=== PATIENT | male | born 1965 | race Caucasian/White ===

== ENCOUNTER 2017-09-24 23:40 | Observation (INO) | payer OTHER ==
[2017-09-25 01:08] VITALS: BMI 28.5
--- NOTE | 2017-09-25 01:17 | PDOC ---
Attending Attestation - HPI HPI: 09/25/17 01:20 The patient is a 51 year old male with a significant PMH of diabetes and HTN who presents to the emergency department with a sudden onset of left sided abdominal pain with associated vomiting beginning approximately 3 hours ago. He describes his vomit as what he ate and denies hematemesis or bile. He describes his abdominal pain as a pressure like sensation localized on his left side. He notes his last BM was today. The patient denies dysuria or hematuria. Allergies: NKA PCP: Dr. Varghese-Lilia <Ganesh Jean-Baptiste - Last Filed: 09/25/17 01:20> - Resident Resident Name: Nicanor Bazan - ED Attending Attestation I have performed the following: I have examined & evaluated the patient, The case was reviewed & discussed with the resident, I agree w/resident's findings & plan, Exceptions are as noted - Physicial Exam PE: 09/29/17 19:58 *Physical Exam General Appearance: Yes: Appropriately Dressed. No: Apparent Distress, Intoxicated HEENT: positive: EOMI, ROQUE, Normal ENT Inspection, Normal Voice, TMs Normal, Pharynx Normal. negative: Pale Conjunctivae, Photophobia, Scleral Icterus (R), Scleral Icterus (L) Neck: positive: Trachea midline, Normal Thyroid, Supple. negative: Tender, Rigid, Carotid bruit, Stridor, Lymphadenopathy (R), Lymphadenopathy (L), Thyromegaly Respiratory/Chest: positive: Lungs Clear, Normal Breath Sounds. negative: Chest Tender, Respiratory Distress, Accessory Muscle Use, Labored Respiration, RES, Crackles, Rales, Rhonchi, Stridor, Wheezing, Dullness Cardiovascular: positive: Regular Rhythm, Regular Rate, S1, S2. negative: Edema , JVD, Murmur, Bradycardia, Tachycardia Vascular Pulses: Dorsalis-Pedis (R): 2+, Doralis-Pedis (L): 2+ Gastrointestinal/Abdominal: positive: Normal Bowel Sounds, Flat, Soft. negative : Tender, Organomegaly, Pulsatile Mass, Increased Bowel Sounds, Decreased BS, Distended, Guarding, Rebound, Hernia, Hepatomegaly, Spleenomegaly Lymphatic: negative: Adenopathy, Tenderness Musculoskeletal: positive: Left CVA tenderness negative: Decreased Range of Motion Extremity: positive: Normal Capillary Refill, Normal Inspection, Normal Range of Motion, Pelvis Stable. negative: Tender, Pedal Edema, Swelling, Erythema Integumentary: positive: Normal Color, Dry, Warm. negative: Cyanotic, Erythema , Jaundice, Rash Neurologic: positive: deli clerk II-XII NML intact, Fully Oriented, Alert, Normal Mood/ Affect, Motor Strength 5/5. negative: EOM Palsy, Facial Droop, Sensory Deficit - Medical Decision Making 09/29/17 19:59 Pt was admitted for further evaluation and care <Sánchez Calvillo - Last Filed: 09/29/17 19:59>
[2017-09-25] MEDS ORDERED: morphine CARPU-JECT 4 MG/1 ML DISP.SYRIN IVPUSH ONE ×2 (01:18→02:51)
[2017-09-25] MEDS ORDERED: ONDANSETRON 4 MG/2 ML VIAL IVPUSH ONE (01:18)
[2017-09-25] MEDS ORDERED: FAMOTIDINE 20 MG/50 ML IVPB 20 MG/50 ML MG IVPB ONE ×2 (01:18→01:44)
[2017-09-25] MEDS ORDERED: SODIUM CHLORIDE 1,000 ML IV STA (01:18)
[2017-09-25] MEDS ORDERED: morphine SULFATE 4 MG/ML VIAL ONE ×2 (01:44→02:53)
[2017-09-25] MEDS ORDERED: ONDANSETRON 4 MG/2 ML VIAL ONE ×2 (01:44→14:36)
[2017-09-25 01:48] LABS: BASO % 0.3 % (0-2.0); EOS % 0.2 % (0-4.5); HEMATOCRIT 38.6 % (35.4-49); LYMPH % 15.6 % (8-40); MCH 25.9 pg (25.7-33.7); MCHC 33.7 g/dl (32.0-35.9); MEAN CELL VOLUME 76.7 fl (80-96); MEAN PLT VOLUME 9.7 fl (7.5-11.1); NEUT % 77.9 % (42.8-82.8); PLATELET COUNT 173 K/MM3 (134-434); RBC 5.03 M/mm3 (4.00-5.60); RDW 15.3 % (11.9-15.9); WHITE BLOOD COUNT 8.4 K/mm3 (4.0-10.0)
[2017-09-25 02:15] LABS: ALBUMIN 4.3 g/dl (3.4-5.0); ALK PHOS 61 U/L (45-117); ANION GAP 14 (8-16); BILIRUBIN,TOTAL 0.4 mg/dL (0.2-1.0); BLOOD UREA NITROGEN 17 mg/dL (7-18); CALCIUM 9.6 mg/dL (8.5-10.1); CHLORIDE 100 mmol/L (98-107); CO2 26 mmol/L (21-32); CREATININE 1.3 mg/dL (0.7-1.3); GLUCOSE,RANDOM 284 mg/dL (74-106); LIPASE 179 U/L (73-393); SGPT/ALT 32 U/L (12-78); SODIUM 140 mmol/L (136-145); TOT PROT 7.5 g/dl (6.4-8.2)
[2017-09-25 02:19] LABS: POTASSIUM 4.6 mmol/L (3.5-5.1)
[2017-09-25 02:20] LABS: SGOT/AST 32 U/L (15-37)
--- NOTE | 2017-09-25 02:50 | PDOC ---
History of Present Illness - General Chief Complaint: Pain Stated Complaint: PAIN, ACUTE Time Seen by Provider: 09/25/17 01:07 History Source: Patient Exam Limitations: No Limitations - History of Present Illness Initial Comments: 09/25/17 02:45 Patient is a 51M with history of IDDM and HTN here today complaining of left sided abdominal pain that onset at 10pm yesterday. Patient is complaining of associated nausea and non-billious non-bloody emesis. He describes the pain as a pressure. Denies fevers, chills. Last bowel movement was this morning. Denies pain with urination. Denies surgical history. Former distant smoker. Past History - Past Medical History Allergies/Adverse Reactions: Allergies Allergy/AdvReac Type Severity Reaction Status Date / Time No Known Allergies Allergy Verified 09/25/17 01:06 Home Medications: Ambulatory Orders Aspirin [ASA -] 81 mg PO DAILY 09/25/17 Atorvastatin Ca [Lipitor] 40 mg PO HS 09/25/17 Enalapril Maleate [Vasotec -] 5 mg PO DAILY 09/25/17 Insulin Glargine,Hum.rec.anlog [Lantus] 75 unit SQ HS 09/25/17 Liraglutide [Victoza -] 1.2 mg SQ DAILY@0700 09/25/17 metFORMIN HCL [Glucophage -] 500 mg PO DAILY 09/25/17 COPD: No Diabetes: Yes HTN: Yes Hypercholesterolemia: Yes - Suicide/Smoking/Psychosocial Hx Smoking History: Never smoked Have you smoked in the past 12 months: No Information on smoking cessation initiated: No Hx Alcohol Use: No Drug/Substance Use Hx: No Review of Systems - Review of Systems Comments:: 09/25/17 02:47 GENERAL/CONSTITUTIONAL: No fever or chills. No weakness. HEAD, EYES, EARS, NOSE AND THROAT: No change in vision. No sore throat. CARDIOVASCULAR: No chest pain or shortness of breath RESPIRATORY: No cough, wheezing, or hemoptysis. GASTROINTESTINAL: Positive for nausea, vomiting. Negative for diarrhea or constipation. GENITOURINARY: No dysuria, frequency, or change in urination. MUSCULOSKELETAL: No joint or muscle swelling or pain. No neck or back pain. SKIN: No rash NEUROLOGIC: No headache, vertigo, loss of consciousness, or change in strength/ sensation. ENDOCRINE: No increased thirst. No abnormal weight change ALLERGIC/IMMUNOLOGIC: No hives or skin allergy. *Physical Exam - Vital Signs Last Vital Signs Temp Pulse Resp BP Pulse Ox 98.9 F 89 20 158/101 98 09/25/17 01:04 09/25/17 01:04 09/25/17 01:04 09/25/17 01:04 09/25/17 01:04 - Physical Exam Comments: 09/25/17 02:48 GENERAL: Awake, alert, and fully oriented, in no acute distress HEAD: No signs of trauma, normocephalic, atraumatic EYES: PERRLA, EOMI, sclera anicteric, conjunctiva clear ENT: Auricles normal inspection, hearing grossly normal, nares patent, oropharynx clear without exudates. Moist mucosa LUNGS: No distress, speaks full sentences, clear to auscultation bilaterally HEART: Regular rate and rhythm, normal S1 and S2, no murmurs, rubs or gallops, peripheral pulses normal and equal bilaterally. ABDOMEN: Soft, tender in LLQ, no guarding, no rebound. EXTREMITIES: Normal inspection, Normal range of motion, no edema. No clubbing or cyanosis. NEUROLOGICAL: Cranial nerves II through XII grossly intact. Normal speech, no focal sensorimotor deficits SKIN: Warm, Dry, normal turgor, no rashes or lesions noted. ED Treatment Course - LABORATORY CBC & Chemistry Diagram: 09/25/17 01:40 09/25/17 01:40 - ADDITIONAL ORDERS Additional order review: Laboratory Results 09/25/17 01:40 Sodium 140 Potassium 4.6 Chloride 100 Carbon Dioxide 26 Anion Gap 14 BUN 17 Creatinine 1.3 Creat Clearance w eGFR 58.20 Random Glucose 284 H Calcium 9.6 Total Bilirubin 0.4 AST 32 ALT 32 Alkaline Phosphatase 61 Total Protein 7.5 Albumin 4.3 Lipase 179 09/25/17 01:40 RBC 5.03 MCV 76.7 L MCHC 33.7 RDW 15.3 MPV 9.7 Neutrophils % 77.9 Lymphocytes % 15.6 Monocytes % 6.0 Eosinophils % 0.2 Basophils % 0.3 - RADIOLOGY Radiology Studies Ordered: Category Date Time Status ABDOMEN & PELVIS CT WITH CONTR [CT] Stat CT Scan 09/25/17 01:20 Ordered - Medications Given in the ED: ED Medications Discontinued Medications Generic Name Dose Route Start Last Admin Trade Name Freq PRN Reason Stop Dose Admin Famotidine/Sodium Chloride 20 mg in 50 mls @ 100 mls/hr 09/25/17 01:18 01:52 Pepcid 20 Mg Premixed Ivpb - IVPB 09/25/17 01:47 100 mls/hr ONCE ONE Administration Sodium Chloride 1,000 mls @ 1,000 mls/hr 09/25/17 01:18 09/25/17 01:52 Normal Saline - IV 09/25/17 02:17 1,000 mls/hr ASDIR STA Administration Morphine Sulfate 4 mg 09/25/17 01:18 09/25/17 01:51 Morphine Injection - IVPUSH 09/25/17 01:19 4 mg ONCE ONE Administration Ondansetron HCl 4 mg 09/25/17 01:18 09/25/17 01:52 Zofran Injection IVPUSH 09/25/17 01:19 4 mg ONCE ONE Administration Medical Decision Making - Medical Decision Making 09/25/17 02:48 Patient is 51M with history of IDDM and HTN here today complaining of LLQ abdominal pain. Vital signs stable and normal. DDx includes, but is not limited to: diverticulitis, gastritis, nephrolithiasis. Treated with zofran, pepcid, morphine. Will evaluate with cbc, cmp, lipase, ua, ekg, ct abd/pelvis. 09/25/17 03:17 EKG shows normal sinus rhythm with rate of 80. No st elevations/depressions. Normal intervals. 09/25/17 03:51 CBC, CMP, Lipase reassuring. UA shows hematuria and glucosuria. No infection CT shows kidney stone with moderate hydronephrosis. Patient reassessed, still in pain. Given second dose of morphine, toradol and flomax added. Will reassess. 09/25/17 06:[address] Santamaria. Patient still in pain. *DC/Admit/Observation/Transfer Diagnosis at time of Disposition: Nephrolithiasis - Discharge Dispostion Condition at time of disposition: Stable Decision to Admit order: Yes - Referrals Referrals: Anastasiia Aguila MD [Primary Care Provider] - - Patient Instructions - Post Discharge Activity
[2017-09-25 03:09] LABS: URINE APPEARANCE CLEAR; URINE BILIRUBIN NEGATIVE (<2.0 mg/dL); URINE COLOR STRAW; URINE GLUCOSE (UA) 3+ (NEGATIVE); URINE KETONE TRACE (NEGATIVE); URINE LEUK ESTERASE NEGATIVE (NEGATIVE); URINE NITRITE NEGATIVE (NEGATIVE); URINE PROTEIN NEGATIVE (NEGATIVE); URINE UROBILINOGEN NEGATIVE mg/dL (0.2-1.0)
[2017-09-25] MEDS ORDERED: TAMSULOSIN HCL 0.4 MG CAP.ER.24H (FP) PO ONE (03:31)
[2017-09-25] MEDS ORDERED: KETOROLAC TROMETHAMINE 30 MG/1 ML VIAL IVPUSH ONE (03:31)
[2017-09-25 03:35] LABS: EPI CELLS RARE /HPF (FEW)
[2017-09-25] MEDS ORDERED: KETOROLAC TROMETHAMINE 30 MG/1 ML VIAL ONE (04:04)
[2017-09-25] MEDS ORDERED: TAMSULOSIN HCL 0.4 MG CAP.ER.24H (FP) ONE ×2 (04:04→07:52)
--- NOTE | 2017-09-25 05:03 | HP ---
CHIEF COMPLAINT: L flank pain, nausea, vomiting PCP: Dr. Callahan Urology: [facility] in [place] (can't recall MD name) HISTORY OF PRESENT ILLNESS: 51yo man with PMH of HTN, IDDM, and L renal stone 8y ago (passed spontaneously) who presents to ED with acute onset L flank pain and multiple episodes of NBNB emesis starting yesterday. Patient was at [employer] when developed sharp L flank pain. Attempt at PO intake elicited nausea and emesis. Patient denies fever, chills, dysuria, hematuria, urinary hesitancy, and urgency. ER course was notable for: (1) VS: T 98, HR 100, BP 125/75, RR 18, pSaO2 99% on RA (2) CT A/P: 4mm stone at L UVJ with moderate hydronephrosis (3) Received Morphine, Toradol and Zofran with improvement in pain Recent Travel: none PAST MEDICAL HISTORY: see HPI PAST SURGICAL HISTORY: none Social History: Smoking: quit 15y ago Alcohol: no Drugs: no Family History: no family h/o renal stones Allergies: No Known Allergies Allergy (Verified 09/25/17 01:06) HOME MEDICATIONS: Home Medications Medication Instructions Recorded Aspirin [ASA -] 81 mg PO DAILY 09/25/17 Atorvastatin Ca [Lipitor] 40 mg PO HS 09/25/17 Enalapril Maleate [Vasotec -] 5 mg PO DAILY 09/25/17 Insulin Glargine,Hum.rec.anlog 75 unit SQ HS 09/25/17 [Lantus] Liraglutide [Victoza -] 1.2 mg SQ DAILY@0700 09/25/17 metFORMIN HCL [Glucophage -] 500 mg PO DAILY 09/25/17 REVIEW OF SYSTEMS CONSTITUTIONAL: Absent: fever, chills, diaphoresis, generalized weakness, malaise, loss of appetite, weight change HEENT: Absent: rhinorrhea, nasal congestion, throat pain, throat swelling, difficulty swallowing, mouth swelling, ear pain, eye pain, visual changes CARDIOVASCULAR: Absent: chest pain, syncope, palpitations, irregular heart rate, lightheadedness , peripheral edema RESPIRATORY: Absent: cough, shortness of breath, dyspnea with exertion, orthopnea, wheezing, stridor, hemoptysis GASTROINTESTINAL: +nausea, vomiting Absent: abdominal pain, abdominal distension, diarrhea, constipation, melena, hematochezia GENITOURINARY: +flank pain, Absent: dysuria, frequency, urgency, hesitancy, hematuria, genital pain MUSCULOSKELETAL: Absent: myalgia, arthralgia, joint swelling, back pain, neck pain SKIN: Absent: rash, itching, pallor HEMATOLOGIC/IMMUNOLOGIC: Absent: easy bleeding, easy bruising, lymphadenopathy, frequent infections ENDOCRINE: Absent: unexplained weight gain, unexplained weight loss, heat intolerance, cold intolerance NEUROLOGIC: Absent: headache, focal weakness or paresthesias, dizziness, unsteady gait, seizure, mental status changes, bladder or bowel incontinence PSYCHIATRIC: Absent: anxiety, depression, suicidal or homicidal ideation, hallucinations. PHYSICAL EXAMINATION Vital Signs - 24 hr 09/25/17 01:04 Temperature 98.9 F Pulse Rate 89 Respiratory 20 Rate Blood Pressure 158/101 O2 Sat by Pulse 98 Oximetry (%) GENERAL: aaox3, nad HEENT: PERRL, EOMI, sclera anicteric, conjunctiva clear, no pharygeal erythema, mmm NECK: supple, no cervical LAD LUNGS: CTAB HEART: RRR, normal s1/s2, no m/r/g ABDOMEN: Soft, NTND : mild suprapubic ttp; no CVA tenderness LOWER EXTREMITIES: 2+ DP pulses, wwp, no edema CBC, BMP 09/25/17 01:40 09/25/17 01:40 Hepatic Panel Total Bilirubin 0.4 mg/dL (0.2-1.0) 09/25/17 01:40 AST 32 U/L (15-37) 09/25/17 01:40 ALT 32 U/L (12-78) 09/25/17 01:40 Alkaline Phosphatase 61 U/L (45-117) 09/25/17 01:40 Albumin 4.3 g/dl (3.4-5.0) 09/25/17 01:40 Urine Test Results Urine Color Straw 09/25/17 02:40 Urine Appearance Clear 09/25/17 02:40 Urine pH 7.0 (5.0-8.0) 09/25/17 02:40 Ur Specific [place] 1.023 (1.001-1.035) 09/25/17 02:40 Urine Protein Negative (NEGATIVE) 09/25/17 02:40 Urine Glucose (UA) 3+ (NEGATIVE) H 09/25/17 02:40 Urine Ketones Trace (NEGATIVE) H 09/25/17 02:40 Urine Blood 1+ (NEGATIVE) H 09/25/17 02:40 Urine Nitrite Negative (NEGATIVE) 09/25/17 02:40 Urine Bilirubin Negative (<2.0 mg/dL) 09/25/17 02:40 Ur Leukocyte Esterase Negative (NEGATIVE) 09/25/17 02:40 Ur Epithelial Cells Rare /HPF (FEW) 09/25/17 02:40 EKG: NSR, rate 80, normal axis and intervals, no ST/T wave changes, QTc 449 CT A/P w/o contrast: Prelim Read: 4mm stone at the L ureterovesicular junction with moderate hydronephrosis ASSESSMENT/PLAN: 51yo man with PMH of HTN, IDDM, and prior L nephrolithiasis (spontaneously passed) who presents with acute onset L flank pain associated with NBNB emesis and found to have 4mm L renal stone with moderate hydronephrosis. #obstructive uropathy 2/2 renal stone (4mm) -Urology consulted -IVF NS 75cc/hr -Morphine PRN for pain control -Zofran PRN for nausea -Strain all urine -coags, T&S, NPO for possible procedure #L testicular pain, likely referred pain from renal stone, low suspicion for infection, but will order GC/Chlam -Check GC/Chlamydia #IDDM -hold home meds -BGM/ISS ACHS #HTN -c/w home meds -Hold home ASA #FEN NS 75cc/hr lytes wnl NPO until urology sees pt #PPX - EAM, SCDs #DISPO: m/s obs FULL code Plan d/w Dr. Rosalio Noe MD PGY1- Internal Medicine, [employer] Visit type - Emergency Visit Emergency Visit: Yes Care time: The patient presented to the Emergency Department on the above date and was hospitalized for further evaluation of their emergent condition. - New Patient This patient is new to me today: Yes Date on this admission: 09/25/17 - Critical Care Critical Care patient: No Hospitalist Screening - Colonoscopy Questionnaire Colonoscopy Questionnaire: Colonoscopy Questionnaire - Patient: 50 - 75 years old and never had a screening colonoscopy: Unknown History of colon or rectal polyps, or CA: Unknown History of IBD, Crohn's disease or UC: Unknown History of abdominal radiation therapy as a child: Unknown - Relative: 1 with colon or rectal CA, or polyps at age 60 or younger: Unknown Colon or rectal CA diagnosed at age 45 or younger: Unknown Multiple relatives with colon or rectal CA: Unknown - Outcome: Screening Result: Negative Screen
[2017-09-25] MEDS ORDERED: morphine SULFATE 4 MG/ML VIAL IVPUSH PRN (06:28)
[2017-09-25] MEDS ORDERED: DOCUSATE SODIUM 100 MG CAPSULE (FP) PO PRN (06:28)
[2017-09-25] MEDS ORDERED: ONDANSETRON 4 MG/2 ML VIAL IVPUSH PRN ×2 (06:28→09:42)
--- NOTE | 2017-09-25 06:28 | PN ---
Teaching Attending Note Name of Resident: Rosenda Noe ATTENDING PHYSICIAN STATEMENT I saw and evaluated the patient. Chart, data, imaging reviewed. I reviewed the resident's note and discussed the case with the resident. I agree with the resident's findings and plan as documented. SUBJECTIVE: 51yo man with PMH of HTN, IDDM, and L renal stone (passed spontaneously) c/o 1 day of severe left flank pain associated with nausea and multiple episodes of vomiting. Patient cannot keep down any food due to nausea. He c/o pain radiating down to left groin. Denied any dysuria. Found to have left ureter 4mm stone at UVJ on abd/pelvis ct associated with left hydronephrosis. OBJECTIVE: Last Vital Signs Temp Pulse Resp BP Pulse Ox 98.9 F 89 20 158/101 98 09/25/17 01:04 09/25/17 01:04 09/25/17 01:04 09/25/17 01:04 09/25/17 01:04 general -nad, appears comfortable heent- at, nc, moist oral mucosa neck -supple cv -s1+s2+ rrr chest clear abdomen- left cva tenderness skin - no rashes genital exam- no inguinal hernias, testes wnl, no swelling or tenderness Abnormal Lab Results 09/25/17 09/25/17 09/25/17 01:40 01:40 02:40 MCV 76.7 L Random Glucose 284 H Urine Glucose (UA) 3+ H Urine Ketones Trace H Urine Blood 1+ H CT of abdomen/pelvis reviewed ASSESSMENT AND PLAN: 51yo man with left sided kidney stone at UVJ- 4mm diameter, w/ resultant left hydronephrosis. FADI vs CKD. -observation -iv fluid hydration -zofran prn if nausea and vomiting -npo -pt, ptt, t,s -morphine IV prn if pain -tamsulosin -urology evaluation for stone intervention -avoid nephrotoxic meds -heparin sc for dvt ppx
[2017-09-25] MEDS ORDERED: SODIUM CHLORIDE 1,000 ML IV SCH ×2 (06:30→09:39)
[2017-09-25] MEDS ORDERED: TAMSULOSIN HCL 0.4 MG CAP.ER.24H (FP) PO SCH (07:00)
[2017-09-25] MEDS: INSULIN SLIDING SCALE (NOVOLOG) 1 VIAL SQ SCH ×2 (07:45→12:21)
[2017-09-25] MEDS ORDERED: INSULIN REGULAR HUMAN 100 UNITS/ML *VIAL ONE (07:52)
[2017-09-25 08:01] LABS: PROTHROMBIN TIME (PATIENT) 11.3 SEC (9.7-13.0)
[2017-09-25] MEDS ORDERED: ONDANSETRON *ODT* 4 MG TABLET SL ONE (09:15)
--- NOTE | 2017-09-25 09:32 | EKG ---
Test Reason : Blood Pressure : / mmHG Vent. Rate : 080 BPM Atrial Rate : 080 BPM P-R Int : 134 ms QRS Dur : 104 ms QT Int : 390 ms P-R-T Axes : 019 043 031 degrees QTc Int : 449 ms NORMAL SINUS RHYTHM NORMAL ECG NO PREVIOUS ECGS AVAILABLE Confirmed by ARELY OCAMPO MD ([id number]) on 09/25/2017 9:32:22 AM Referred By: Confirmed By:ARELY OACMPO MD
[2017-09-25] MEDS ORDERED: IBUPROFEN 600 MG TABLET (FP) PO ONE ×2 (09:33→12:09)
[2017-09-25] MEDS ORDERED: INSULIN (LEVEMIR) 100 UNITS/ML UNITS SQ ONE (09:42)
[2017-09-25] MEDS ORDERED: ENALAPRIL MALEATE 5 MG TABLET (FP) PO SCH (10:00)
[2017-09-25 11:11] LABS: BASO % 0.5 % (0-2.0); EOS % 0.2 % (0-4.5); HEMATOCRIT 37.2 % (35.4-49); HEMOGLOBIN 12.9 GM/dL (11.7-16.9); LYMPH % 24.7 % (8-40); MCH 26.3 pg (25.7-33.7); MCHC 34.6 g/dl (32.0-35.9); MEAN CELL VOLUME 75.9 fl (80-96); MEAN PLT VOLUME 9.7 fl (7.5-11.1); MONO % 9.8 % (3.8-10.2); NEUT % 64.8 % (42.8-82.8); PLATELET COUNT 162 K/MM3 (134-434); RBC 4.91 M/mm3 (4.00-5.60); WHITE BLOOD COUNT 6.9 K/mm3 (4.0-10.0)
[2017-09-25 11:30] LABS: ANION GAP 6 (8-16); BLOOD UREA NITROGEN 15 mg/dL (7-18); CALCIUM 8.4 mg/dL (8.5-10.1); CHLORIDE 104 mmol/L (98-107); CO2 30 mmol/L (21-32); CREATININE 1.1 mg/dL (0.7-1.3); GLUCOSE,RANDOM 150 mg/dL (74-106); POTASSIUM 4.8 mmol/L (3.5-5.1); SODIUM 140 mmol/L (136-145)
[2017-09-25] MEDS ORDERED: MORPHINE SULFATE 10 MG/1 ML *VIAL IVPUSH PRN (15:32)
[2017-09-25] MEDS ORDERED: MORPHINE SULFATE 10 MG/1 ML *VIAL ONE (15:34)
--- NOTE | 2017-09-25 16:23 | PN ---
Teaching Attending Note Name of Resident: Janet Lazaro ATTENDING PHYSICIAN STATEMENT I saw and evaluated the patient. I reviewed the resident's note and discussed the case with the resident. I agree with the resident's findings and plan as documented with exceptions below. SUBJECTIVE: Patient seen and examined. some left flank pain, no further nausea, vomiting. No other complaints. OBJECTIVE: Vital Signs Period Temp Pulse Resp BP Sys/Manzo Pulse Ox Last 24 Hr 97.5 F-98.9 F 80-95 12-20 135-158/77-101 97-98 Intake & Output 09/22/17 09/23/17 09/24/17 09/25/17 23:59 23:59 23:59 23:59 Weight 210 lb General: lying in bed in no acute distress Abdomen: soft, Mild LMQ left lateral abdominal tenderness, no voluntary or involuntary guarding or rigidity, positive bowel sounds Home Medication List Medication Instructions Recorded Confirmed Type Aspirin [ASA -] 81 mg PO DAILY 09/25/17 09/25/17 History Enalapril Maleate [Vasotec -] 5 mg PO DAILY 09/25/17 09/25/17 History Glyburide/Metformin HCl 2 each PO BID 09/25/17 09/25/17 History [Glyburide-Metformin 5-500 mg] Insulin Glargine,Hum.rec.anlog 75 unit SQ HS 09/25/17 09/25/17 History [Lantus] Liraglutide [Victoza -] 1.2 mg SQ HS 09/25/17 09/25/17 History Omeprazole 20 mg PO DAILY 09/25/17 09/25/17 History Simvastatin [Zocor -] 40 mg PO HS 09/25/17 09/25/17 History Laboratory Results - last 24 hr 09/25/17 09/25/17 09/25/17 01:40 01:40 02:40 WBC 8.4 RBC 5.03 Hgb 13.0 Hct 38.6 MCV 76.7 L MCH 25.9 MCHC 33.7 RDW 15.3 Plt Count 173 MPV 9.7 Neutrophils % 77.9 Lymphocytes % 15.6 Monocytes % 6.0 Eosinophils % 0.2 Basophils % 0.3 PT with INR INR Sodium 140 Potassium 4.6 Chloride 100 Carbon Dioxide 26 Anion Gap 14 BUN 17 Creatinine 1.3 Creat Clearance w eGFR 58.20 POC Glucometer Random Glucose 284 H Calcium 9.6 Total Bilirubin 0.4 AST 32 ALT 32 Alkaline Phosphatase 61 Total Protein 7.5 Albumin 4.3 Lipase 179 Urine Color Straw Urine Appearance Clear Urine pH 7.0 Ur Specific [place] 1.023 Urine Protein Negative Urine Glucose (UA) 3+ H Urine Ketones Trace H Urine Blood 1+ H Urine Nitrite Negative Urine Bilirubin Negative Urine Urobilinogen Negative Ur Leukocyte Esterase Negative Urine WBC (Auto) 1 Urine RBC (Auto) 4 Ur Epithelial Cells Rare Blood Type Antibody Screen 09/25/17 09/25/17 09/25/17 07:13 07:32 07:40 WBC RBC Hgb Hct MCV MCH MCHC RDW Plt Count MPV Neutrophils % Lymphocytes % Monocytes % Eosinophils % Basophils % PT with INR 11.30 INR 1.00 Sodium Potassium Chloride Carbon Dioxide Anion Gap BUN Creatinine Creat Clearance w eGFR POC Glucometer [phone] Random Glucose Calcium Total Bilirubin AST ALT Alkaline Phosphatase Total Protein Albumin Lipase Urine Color Urine Appearance Urine pH Ur Specific [place] Urine Protein Urine Glucose (UA) Urine Ketones Urine Blood Urine Nitrite Urine Bilirubin Urine Urobilinogen Ur Leukocyte Esterase Urine WBC (Auto) Urine RBC (Auto) Ur Epithelial Cells Blood Type A POSITIVE Antibody Screen Negative 09/25/17 09/25/17 10:45 10:45 WBC 6.9 RBC 4.91 Hgb 12.9 Hct 37.2 MCV 75.9 L MCH 26.3 MCHC 34.6 RDW 15.0 Plt Count 162 MPV 9.7 Neutrophils % 64.8 Lymphocytes % 24.7 D Monocytes % 9.8 Eosinophils % 0.2 Basophils % 0.5 PT with INR INR Sodium 140 Potassium 4.8 Chloride 104 Carbon Dioxide 30 Anion Gap 6 L BUN 15 Creatinine 1.1 Creat Clearance w eGFR POC Glucometer Random Glucose 150 H D Calcium 8.4 L Total Bilirubin AST ALT Alkaline Phosphatase Total Protein Albumin Lipase Urine Color Urine Appearance Urine pH Ur Specific [place] Urine Protein Urine Glucose (UA) Urine Ketones Urine Blood Urine Nitrite Urine Bilirubin Urine Urobilinogen Ur Leukocyte Esterase Urine WBC (Auto) Urine RBC (Auto) Ur Epithelial Cells Blood Type Antibody Screen ASSESSMENT AND PLAN: 51 yom with Left nephrolithiasis with mild left hydronephrosis -Left nephrolithiasis with mild left hydronephrosis Plan: Renal function stable, no evidence of infection. DIscussed with Dr. Walt Branham, d/c on Flomax with plenty of fluids and outpatient follow up. Hold glyburide/Metformin 48 hours post contrast, patient instructed. Plan discussed with patient in detail, all questions answered. Dc with outpatient urology follow up.
[2017-09-25 16:39] VITALS: BP 139/75; PULSE 84; TEMP 97.9
--- NOTE | 2017-09-25 21:39 | DS ---
Physical Exam: SUBJECTIVE: Patient seen and examined. Currently pain free. Nauseous but no recent vomiting. OBJECTIVE: Vital Signs Period Temp Pulse Resp BP Sys/Manzo Pulse Ox Last 24 Hr 97.5 F-98.9 F 80-95 12-20 135-158/75-101 97-98 PHYSICAL EXAM GENERAL: The patient is awake, alert, and fully oriented, in no acute distress. ENT: moist mucous membranes. LUNGS: Breath sounds equal, clear to auscultation bilaterally HEART: Regular rate and rhythm, S1, S2 without murmur, rub or gallop. ABDOMEN: Soft, L flank tenderness, nondistended, normoactive bowel sounds, no CVA tenderness EXTREMITIES: 2+ pulses, warm, well-perfused, no edema. NEUROLOGICAL: Cranial nerves II through XII grossly intact. Normal speech, gait not observed. PSYCH: Normal mood, normal affect. SKIN: Warm, dry, normal turgor, no rashes or lesions noted. LABS Laboratory Results - last 24 hr 09/25/17 09/25/17 09/25/17 01:40 01:40 02:40 WBC 8.4 RBC 5.03 Hgb 13.0 Hct 38.6 MCV 76.7 L MCH 25.9 MCHC 33.7 RDW 15.3 Plt Count 173 MPV 9.7 Neutrophils % 77.9 Lymphocytes % 15.6 Monocytes % 6.0 Eosinophils % 0.2 Basophils % 0.3 PT with INR INR Sodium 140 Potassium 4.6 Chloride 100 Carbon Dioxide 26 Anion Gap 14 BUN 17 Creatinine 1.3 Creat Clearance w eGFR 58.20 POC Glucometer Random Glucose 284 H Calcium 9.6 Total Bilirubin 0.4 AST 32 ALT 32 Alkaline Phosphatase 61 Total Protein 7.5 Albumin 4.3 Lipase 179 Urine Color Straw Urine Appearance Clear Urine pH 7.0 Ur Specific [place] 1.023 Urine Protein Negative Urine Glucose (UA) 3+ H Urine Ketones Trace H Urine Blood 1+ H Urine Nitrite Negative Urine Bilirubin Negative Urine Urobilinogen Negative Ur Leukocyte Esterase Negative Urine WBC (Auto) 1 Urine RBC (Auto) 4 Ur Epithelial Cells Rare Blood Type Antibody Screen 09/25/17 09/25/17 09/25/17 07:13 07:32 07:40 WBC RBC Hgb Hct MCV MCH MCHC RDW Plt Count MPV Neutrophils % Lymphocytes % Monocytes % Eosinophils % Basophils % PT with INR 11.30 INR 1.00 Sodium Potassium Chloride Carbon Dioxide Anion Gap BUN Creatinine Creat Clearance w eGFR POC Glucometer [phone] Random Glucose Calcium Total Bilirubin AST ALT Alkaline Phosphatase Total Protein Albumin Lipase Urine Color Urine Appearance Urine pH Ur Specific [place] Urine Protein Urine Glucose (UA) Urine Ketones Urine Blood Urine Nitrite Urine Bilirubin Urine Urobilinogen Ur Leukocyte Esterase Urine WBC (Auto) Urine RBC (Auto) Ur Epithelial Cells Blood Type A POSITIVE Antibody Screen Negative 09/25/17 09/25/17 10:45 10:45 WBC 6.9 RBC 4.91 Hgb 12.9 Hct 37.2 MCV 75.9 L MCH 26.3 MCHC 34.6 RDW 15.0 Plt Count 162 MPV 9.7 Neutrophils % 64.8 Lymphocytes % 24.7 D Monocytes % 9.8 Eosinophils % 0.2 Basophils % 0.5 PT with INR INR Sodium 140 Potassium 4.8 Chloride 104 Carbon Dioxide 30 Anion Gap 6 L BUN 15 Creatinine 1.1 Creat Clearance w eGFR POC Glucometer Random Glucose 150 H D Calcium 8.4 L Total Bilirubin AST ALT Alkaline Phosphatase Total Protein Albumin Lipase Urine Color Urine Appearance Urine pH Ur Specific [place] Urine Protein Urine Glucose (UA) Urine Ketones Urine Blood Urine Nitrite Urine Bilirubin Urine Urobilinogen Ur Leukocyte Esterase Urine WBC (Auto) Urine RBC (Auto) Ur Epithelial Cells Blood Type Antibody Screen CT A/P with contrast: 4mm stone at L UVJ with moderate hydronephrosis HOSPITAL COURSE: Date of Admission:09/25/17 Date of Discharge: 09/25/17 Prehospital course: 51yo man with PMH of HTN, IDDM, and L renal stone 5y ago (passed spontaneously) who presented to ED with acute onset L flank pain and multiple episodes of NBNB emesis starting yesterday. Hospital course: CT A/P with contrast: showed 4mm stone at L UVJ with moderate hydronephrosis. Patient was treated with iv fluids, antiemetics and managed for pain. He stopped vomiting in the am. Urology consult- Dr Romero D/W - conservative management was indicated. Pt tolerated orally and was discharged home on zofran PO, flomax, and to use over the counter motrin as needed. Minutes to complete discharge: 37 Discharge Summary Reason For Visit: CALVULUS OF KIDNEY Condition: Stable - Instructions Diet, Activity, Other Instructions: You were seen for a 4mm obstructive stone in your L kidney The stone should pass on its own and not need a procedure at this time Drink plenty of fluids all day. You can alternate tylenol with motrin for the pain. You can manage your pain with Motrin or advil as needed. Do not take more than 1200mg total in a day of either drug. We are giving you medication- protonix to protect your stomach while you are on the pain medications Take the pain medications with food, and drink a lot of fluids with it. Do not take your metformin/glyburide medication for the next couple of days until Thursday09/28/17 since you received intravenous contrast Continue with your other diabetic medications Check your blood sugars before meals and at bedtime and maintain a diary. Notify your doctor if < 75 or persistently > 200 or any reading > 400 noted. If you are unable to eat food, or continue to vomit, please return to the emergency room We are giving you flomax to help you pass the stone, please take it at night before going to bed to avoid feeling lightheaded We are giving you oral medications- zofran to help with nausea Follow up with your primary doctor in 2-3 days Follow up with the urologist next week Please continue with your other home medications as prescribed If you think your symptoms are getting worse, return to the emergency room Referrals: Remi Robreto MD [Staff Physician] - 1 Week Anastasiia Aguila MD [Primary Care Provider] - 09/28/17 Disposition: HOME - Home Medications Comprehensive Discharge Medication List: Ambulatory Orders Aspirin [ASA -] 81 mg PO DAILY 09/25/17 Enalapril Maleate [Vasotec -] 5 mg PO DAILY 09/25/17 Glyburide/Metformin HCl [Glyburide-Metformin 5-500 mg] 2 each PO BID 09/25/17 Insulin Glargine,Hum.rec.anlog [Lantus] 75 unit SQ HS 09/25/17 Liraglutide [Victoza -] 1.2 mg SQ HS 09/25/17 Omeprazole 20 mg PO DAILY 09/25/17 Ondansetron HCl [Zofran] 4 mg PO DAILY PRN 14 Days #14 tablet 09/25/17 Pantoprazole Sodium [Protonix] 40 mg PO DAILY #21 tablet. 09/25/17 Simvastatin [Zocor -] 40 mg PO HS 09/25/17 Tamsulosin HCl [Flomax -] 0.4 mg PO DAILY@0830 7 Days #7 cap.er.24h 09/25/17 This patient is new to me today: Yes Date on this admission: 09/25/17 Emergency Visit: Yes ED Registration Date: 09/25/17 Care time: The patient presented to the Emergency Department on the above date and was hospitalized for further evaluation of their emergent condition. Critical Care patient: No - Discharge Referral Referred to [facility] No
[2017-09-25] MEDS ORDERED: ATORVASTATIN CA 40 MG TABLET (FP) PO SCH (22:00)
== END 2017-09-25 17:10 | disposition home or self-care (01) ==
LOC: JER 23:40 → JERBED 09-25 04:32 → UNDOADMOB 09-25 06:51 → JERBED 09-25 06:51
PROVIDERS: ADMIT Internal Medicine; ATTEND Hospitalist
PROC: 3E0333Z Introduction of Anti-inflammatory into Peripheral Vein, Percutaneous Approach (ICD-10-PCS; principal; 2017-09-25)
PROC: 3E033NZ Introduction of Analgesics, Hypnotics, Sedatives into Peripheral Vein, Percutaneous Approach (ICD-10-PCS; 2017-09-25)
PROC: 3E033GC Introduction of Other Therapeutic Substance into Peripheral Vein, Percutaneous Approach (ICD-10-PCS; 2017-09-25)
PROC: 3E0337Z Introduction of Electrolytic and Water Balance Substance into Peripheral Vein, Percutaneous Approach (ICD-10-PCS; 2017-09-25)
DX: N13.2 Hydronephrosis with renal and ureteral calculous obstruction (principal); I10 Essential (primary) hypertension; E11.9 Type 2 diabetes mellitus without complications; E78.5 Hyperlipidemia, unspecified; N50.812 Left testicular pain; Z79.4 Long term (current) use of insulin; Z79.82 Long term (current) use of aspirin; Z79.84 Long term (current) use of oral hypoglycemic drugs; Z87.442 Personal history of urinary calculi
CPT/HCPCS: 36415; 74177-TC; 80048; 80053; 81003; 81015; 82962; 83690; 85025; 85610; 86850; 86900; 86901; 87491; 87591; 93005; 93010; 96365; 96375; 96376; 99284-25; G0378; J7030

== ENCOUNTER 2017-09-26 16:10 | Inpatient (IN) | payer OTHER ==
[2017-09-26] MEDS ORDERED: KETOROLAC TROMETHAMINE 30 MG/1 ML VIAL IVPUSH ONE (16:23)
[2017-09-26] MEDS ORDERED: KETOROLAC TROMETHAMINE 30 MG/1 ML VIAL ONE (16:28)
[2017-09-26 16:43] LABS: BASO % 0.6 % (0-2.0); EOS % 0.1 % (0-4.5); HEMATOCRIT 37.5 % (35.4-49); LYMPH % 15.4 % (8-40); MCH 26.1 pg (25.7-33.7); MCHC 34.6 g/dl (32.0-35.9); MEAN CELL VOLUME 75.4 fl (80-96); MONO % 12.8 % (3.8-10.2); NEUT % 71.1 % (42.8-82.8); PLATELET COUNT 158 K/MM3 (134-434); RBC 4.97 M/mm3 (4.00-5.60); RDW 15.3 % (11.9-15.9); WHITE BLOOD COUNT 7.4 K/mm3 (4.0-10.0)
[2017-09-26 17:10] LABS: ALBUMIN 3.9 g/dl (3.4-5.0); ALK PHOS 62 U/L (45-117); ANION GAP 7 (8-16); BILIRUBIN,TOTAL 1.2 mg/dL (0.2-1.0); BLOOD UREA NITROGEN 13 mg/dL (7-18); CALCIUM 8.7 mg/dL (8.5-10.1); CHLORIDE 99 mmol/L (98-107); CO2 29 mmol/L (21-32); CREATININE 1.5 mg/dL (0.7-1.3); GLUCOSE,RANDOM 180 mg/dL (74-106); POTASSIUM 4.2 mmol/L (3.5-5.1); SGOT/AST 24 U/L (15-37); SGPT/ALT 28 U/L (12-78); SODIUM 135 mmol/L (136-145); TOT PROT 7.1 g/dl (6.4-8.2)
--- NOTE | 2017-09-26 17:29 | PDOC ---
History of Present Illness - General Chief Complaint: Pain Stated Complaint: flank PAIN, ACUTE Time Seen by Provider: 09/26/17 16:22 History Source: Patient Exam Limitations: No Limitations - History of Present Illness Initial Comments: 09/26/17 17:24 The patient is a 51M with a PMH of HTN and DM who presents to the ER complaining of worsening L flank pain. The patient states that this is the same pain that he had 1 day ago when he was admitted to our hospital diagnosed with a 4mm L nephrolithiasis and discharged with adequate pain control. He denies any fever, chills, nausea, vomiting, hematuria, dysuria, CP, SOB. Past History - Past Medical History Allergies/Adverse Reactions: Allergies Allergy/AdvReac Type Severity Reaction Status Date / Time No Known Allergies Allergy Verified 09/26/17 16:14 Home Medications: Ambulatory Orders Aspirin [ASA -] 81 mg PO DAILY 09/25/17 Enalapril Maleate [Vasotec -] 5 mg PO DAILY 09/25/17 Glyburide/Metformin HCl [Glyburide-Metformin 5-500 mg] 2 each PO BID 09/25/17 Insulin Glargine,Hum.rec.anlog [Lantus] 75 unit SQ HS 09/25/17 Liraglutide [Victoza -] 1.2 mg SQ HS 09/25/17 Omeprazole 20 mg PO DAILY 09/25/17 Ondansetron HCl [Zofran] 4 mg PO DAILY PRN 14 Days #14 tablet 09/25/17 Pantoprazole Sodium [Protonix] 40 mg PO DAILY #21 tablet. 09/25/17 Simvastatin [Zocor -] 40 mg PO HS 09/25/17 Tamsulosin HCl [Flomax -] 0.4 mg PO DAILY@0830 7 Days #7 cap.er.24h 09/25/17 COPD: No Diabetes: Yes HTN: Yes Hypercholesterolemia: Yes Kidney Stones: Yes - Suicide/Smoking/Psychosocial Hx Smoking History: Never smoked Have you smoked in the past 12 months: No Information on smoking cessation initiated: No Hx Alcohol Use: No Drug/Substance Use Hx: No Substance Use Type: None Review of Systems - Review of Systems Able to Perform ROS?: Yes Comments:: 09/26/17 17:29 GENERAL/CONSTITUTIONAL: No fever or chills. No weakness. HEAD, EYES, EARS, NOSE AND THROAT: No change in vision. No ear pain or discharge. No sore throat. CARDIOVASCULAR: No chest pain, palpitations, or lightheadedness. RESPIRATORY: No cough, wheezing, shortness of breath, or hemoptysis. GASTROINTESTINAL: No nausea, vomiting, diarrhea, constipation, or abdominal pain. GENITOURINARY: Positive for L flank pain. No dysuria, frequency, hematuria, or change in urination. MUSCULOSKELETAL: No joint or muscle swelling or pain. No neck or back pain. SKIN: No rash or lesions. NEUROLOGIC: No headache, numbness, tingling, weakness, loss of consciousness, or change in strength/sensation. ENDOCRINE: No increased thirst. No abnormal weight change. HEMATOLOGIC/LYMPHATIC: No anemia, easy bleeding, or history of blood clots. ALLERGIC/IMMUNOLOGIC: No hives or skin allergy. Is the patient limited Vietnamese proficient: No *Physical Exam - Vital Signs Last Vital Signs Temp Pulse Resp BP Pulse Ox 98.0 F 91 H 18 155/100 100 09/26/17 16:16 09/26/17 16:16 09/26/17 16:16 09/26/17 16:16 09/26/17 16:16 - Physical Exam Comments: 09/26/17 17:32 GENERAL: Well developed, well nourished. Awake and alert. No acute distress. HEENT: Normocephalic, atraumatic. Hearing grossly normal. Moist mucous membranes. PERRLA, EOMI. No conjunctival pallor. Sclera are non-icteric. NECK: Supple. Full ROM. CARDIOVASCULAR: Regular rate and rhythm. No murmurs, rubs, or gallops. PULMONARY: No evidence of respiratory distress. Lungs clear to auscultation bilaterally. No wheezing, rales or rhonchi. ABDOMINAL: Soft. Non-tender. Non-distended. No rebound or guarding. GENITOURINARY: Mild L CVA tenderness. MUSCULOSKELETAL: Normal range of motion at all joints. No bony deformities or tenderness. EXTREMITIES: No cyanosis. No clubbing. No edema. No calf tenderness. SKIN: Warm and dry. Normal capillary refill. No rashes. No jaundice. NEUROLOGICAL: Alert, awake, appropriate. Cranial nerves 2-12 intact. Normal speech. Gait is normal without ataxia. PSYCHIATRIC: Cooperative. Good eye contact. Appropriate mood and affect. ED Treatment Course - LABORATORY CBC & Chemistry Diagram: 09/26/17 16:30 09/26/17 16:30 - ADDITIONAL ORDERS Additional order review: Laboratory Results 09/26/17 16:30 Sodium 135 L Potassium 4.2 Chloride 99 Carbon Dioxide 29 Anion Gap 7 L BUN 13 Creatinine 1.5 H D Creat Clearance w eGFR 49.34 Random Glucose 180 H Calcium 8.7 Total Bilirubin 1.2 H D AST 24 D ALT 28 Alkaline Phosphatase 62 Total Protein 7.1 Albumin 3.9 09/26/17 16:30 RBC 4.97 MCV 75.4 L MCHC 34.6 RDW 15.3 MPV 9.0 Neutrophils % 71.1 Lymphocytes % 15.4 D Monocytes % 12.8 H Eosinophils % 0.1 Basophils % 0.6 - RADIOLOGY Radiology Studies Ordered: Category Date Time Status KIDNEY / RENAL US [US] Stat Ultrasound 09/26/17 16:42 Ordered - Medications Given in the ED: ED Medications Discontinued Medications Generic Name Dose Route Start Last Admin Trade Name Freq PRN Reason Stop Dose Admin Ketorolac Tromethamine 30 mg 09/26/17 16:23 09/26/17 16:39 Toradol Injection - IVPUSH 09/26/17 16:24 30 mg ONCE ONE Administration Medical Decision Making - Medical Decision Making 09/26/17 17:33 The patient is a 51M with a PMH of HTN and DM who presents with a known L nephrolithiasis who presents to the ER with worsening flank pain. Will r/o worsening renal function with CBC, CMP, and renal U/S. Pending labs and imaging. 09/26/17 17:53 Cr is worsening, 1.5 from 1.1 yesterday. Pending US read. Will likely require obs to treat FADI. Giving IVF. 09/26/17 19:10 I have endorsed the patient to Dr. Neff for FADI. *DC/Admit/Observation/Transfer Diagnosis at time of Disposition: FADI (acute kidney injury) - Discharge Dispostion Condition at time of disposition: Stable Decision to Admit order: Yes - Referrals Referrals: Zaynab Casanova [Primary Care Provider] - - Patient Instructions - Post Discharge Activity
[2017-09-26] MEDS ORDERED: SODIUM CHLORIDE 0.9% 1000 ML INFUS.BAG IV ONE ×2 (17:38→19:11)
--- NOTE | 2017-09-26 17:40 | PDOC ---
Attending Attestation - Resident Resident Name: Julio Velázquez - ED Attending Attestation I have performed the following: I have examined & evaluated the patient, The case was reviewed & discussed with the resident, I agree w/resident's findings & plan, Exceptions are as noted - HPI HPI: 09/26/17 17:38 Mr Beltran is a 51 yo m who presents to the ER with a complaint of worsening flank pain Briefly, he is a 51 yo man with PMH of HTN, IDDM, and L renal stone 8y ago, recently placed on observation for severe flank pain due to obstructing kidney stone. Pt discharged to home yesterday. He returns due to severe pain No fevers or chills 09/26/17 17:41 09/26/17 17:42 - Physicial Exam PE: 09/27/17 01:19 GENERAL: Awake, alert, and fully oriented, in no acute distress. LUNGS: Breath sounds equal, clear to auscultation bilaterally. HEART: Regular rate and rhythm, normal S1 and S2 without murmur, rub or gallop. ABDOMEN: Soft, tLeft CVA tenderness, non distended, no guarding, no rebound, no masses. NEUROLOGICAL: Cranial nerves II-XII intact. Normal speech. Normal gait. SKIN: Warm, dry, normal turgor, no rashes or lesions noted, normal capillary refill. - Medical Decision Making 09/26/17 17:38 Pt has known nephrolithiasis - 4mm stone Presents with worsening pain (was d/neetu on Flomax) Will do labs Will do US to eval for hydro 09/26/17 17:40 Laboratory Tests 09/25/17 09/26/17 09/26/17 10:45 16:30 16:30 WBC 7.4 Hgb 13.0 Hct 37.5 Plt Count 158 BUN 15 13 Creatinine 1.1 1.5 H D Pt given toradol for pain Will re assess Will place on observation Clinical impression: FADI, initial presentation Obstructing renal stone, repeat presentation
[2017-09-26 17:57] LABS: URINE APPEARANCE CLEAR; URINE BILIRUBIN NEGATIVE (<2.0 mg/dL); URINE BLOOD NEGATIVE (NEGATIVE); URINE COLOR STRAW; URINE GLUCOSE (UA) 3+ (NEGATIVE); URINE KETONE TRACE (NEGATIVE); URINE LEUK ESTERASE NEGATIVE (NEGATIVE); URINE NITRITE NEGATIVE (NEGATIVE); URINE PROTEIN NEGATIVE (NEGATIVE); URINE UROBILINOGEN NEGATIVE mg/dL (0.2-1.0)
--- NOTE | 2017-09-26 19:30 | PDOC ---
*Physical Exam - Vital Signs Last Vital Signs Temp Pulse Resp BP Pulse Ox 98.0 F 91 H 18 155/100 100 09/26/17 16:16 09/26/17 16:16 09/26/17 16:16 09/26/17 16:16 09/26/17 16:16 ED Treatment Course - LABORATORY CBC & Chemistry Diagram: 09/26/17 16:30 09/26/17 16:30 - ADDITIONAL ORDERS Additional order review: Laboratory Results 09/26/17 09/26/17 17:39 16:30 Sodium 135 L Potassium 4.2 Chloride 99 Carbon Dioxide 29 Anion Gap 7 L BUN 13 Creatinine 1.5 H D Creat Clearance w eGFR 49.34 Random Glucose 180 H Calcium 8.7 Total Bilirubin 1.2 H D AST 24 D ALT 28 Alkaline Phosphatase 62 Total Protein 7.1 Albumin 3.9 Urine Color Straw Urine Appearance Clear Urine pH 6.0 Ur Specific [place] 1.006 Urine Protein Negative Urine Glucose (UA) 3+ H Urine Ketones Trace H Urine Blood Negative Urine Nitrite Negative Urine Bilirubin Negative Urine Urobilinogen Negative Ur Leukocyte Esterase Negative 09/26/17 16:30 RBC 4.97 MCV 75.4 L MCHC 34.6 RDW 15.3 MPV 9.0 Neutrophils % 71.1 Lymphocytes % 15.4 D Monocytes % 12.8 H Eosinophils % 0.1 Basophils % 0.6 - Medications Given in the ED: ED Medications Discontinued Medications Generic Name Dose Route Start Last Admin Trade Name Freq PRN Reason Stop Dose Admin Ketorolac Tromethamine 30 mg 09/26/17 16:23 09/26/17 16:39 Toradol Injection - IVPUSH 09/26/17 16:24 30 mg ONCE ONE Administration Sodium Chloride 1,000 ml 09/26/17 17:38 09/26/17 17:41 Normal Saline - IV 09/26/17 17:39 1,000 ml ONCE ONE Administration Sodium Chloride 1,000 ml 09/26/17 19:11 09/26/17 19:27 Normal Saline - IV 09/26/17 19:12 1,000 ml ONCE ONE Administration Medical Decision Making - Medical Decision Making Pt signed out to me by resident Dr. Velázquez. Will admit to hospitalist group. Accepted for admission. 09/26/17 19:30 *DC/Admit/Observation/Transfer Diagnosis at time of Disposition: FADI (acute kidney injury) - Discharge Dispostion Condition at time of disposition: Stable - Referrals Referrals: Zaynab Casanova [Primary Care Provider] - - Patient Instructions - Post Discharge Activity
[2017-09-26] MEDS ORDERED: morphine SULFATE 4 MG/ML VIAL IVPUSH PRN (19:49)
[2017-09-26] MEDS ORDERED: ONDANSETRON 4 MG TABLET PO PRN (20:24)
--- NOTE | 2017-09-26 20:29 | HP ---
CHIEF COMPLAINT: L back pain and b/l groin pain PCP: Robert Baldwin HISTORY OF PRESENT ILLNESS: Pt is a 51 y/o M recently discharged from this facility from an obs stay for the same problem who presents to ED with L flank and b/l groin pain. Pt was discharged on 09/25/17 after workup of nephrolithiasis and was treated conservatively. Pt went home feeling fine, but found that his pain became progressively worse, which prompted him to return to the ED. Pt has not had any more nausea or vomiting since leaving the ED. He states his L flank pain is the same, but the pain now extends to his groin, as well. ER course was notable for: (1) T 98, HR 91, BP 155/100. (2) No leukocytosis. Hyponatremia 135. Pitch Worker 1.5, T bili 1.2. UA 3+ glucose, trace ketones (3) Recent Travel: denies PAST MEDICAL HISTORY: HTN, HLD, DM PAST SURGICAL HISTORY: denies Social History: Smokinppd from 18 y/o. quit 20 years ago Alcohol: former social drinker. quit 10 ya Drugs: denies Lives at home with and kids Family History: sister with kidney stone Allergies No Known Allergies Allergy (Verified 09/26/17 16:14) HOME MEDICATIONS: Home Medications Medication Instructions Recorded Aspirin [ASA -] 81 mg PO DAILY 09/25/17 Enalapril Maleate [Vasotec -] 5 mg PO DAILY 09/25/17 Glyburide/Metformin HCl 2 each PO BID 09/25/17 [Glyburide-Metformin 5-500 mg] Insulin Glargine,Hum.rec.anlog 75 unit SQ HS 09/25/17 [Lantus] Liraglutide [Victoza -] 1.2 mg SQ HS 09/25/17 Omeprazole 20 mg PO DAILY 09/25/17 Ondansetron HCl [Zofran] 4 mg PO DAILY PRN 14 Days #14 09/25/17 tablet Pantoprazole Sodium [Protonix] 40 mg PO DAILY #21 tablet. 09/25/17 Simvastatin [Zocor -] 40 mg PO HS 09/25/17 Tamsulosin HCl [Flomax -] 0.4 mg PO DAILY@0830 7 Days #7 09/25/17 cap.er.24h REVIEW OF SYSTEMS CONSTITUTIONAL: Absent: fever, chills, diaphoresis, generalized weakness, malaise, loss of appetite, weight change HEENT: Absent: rhinorrhea, nasal congestion, throat pain, throat swelling, difficulty swallowing, mouth swelling, ear pain, eye pain, visual changes CARDIOVASCULAR: Absent: chest pain, syncope, palpitations, irregular heart rate, lightheadedness , peripheral edema RESPIRATORY: Absent: cough, shortness of breath, dyspnea with exertion, orthopnea, wheezing, stridor, hemoptysis GASTROINTESTINAL: abdominal pain, constipation Absent: , abdominal distension, nausea, vomiting, diarrhea, melena, hematochezia GENITOURINARY: Absent: dysuria, frequency, urgency, hesitancy, hematuria, flank pain, genital pain MUSCULOSKELETAL: Absent: myalgia, arthralgia, joint swelling, back pain, neck pain SKIN: Absent: rash, itching, pallor HEMATOLOGIC/IMMUNOLOGIC: Absent: easy bleeding, easy bruising, lymphadenopathy, frequent infections ENDOCRINE: Absent: unexplained weight gain, unexplained weight loss, heat intolerance, cold intolerance NEUROLOGIC: Absent: headache, focal weakness or paresthesias, dizziness, unsteady gait, seizure, mental status changes, bladder or bowel incontinence PSYCHIATRIC: Absent: anxiety, depression, suicidal or homicidal ideation, hallucinations. PHYSICAL EXAMINATION Vital Signs - 24 hr 09/26/17 16:16 Temperature 98.0 F Pulse Rate 91 H Respiratory 18 Rate Blood Pressure 155/100 O2 Sat by Pulse 100 Oximetry (%) GENERAL: Awake, alert, and fully oriented, in no acute distress. HEAD: Normal with no signs of trauma. EYES: extraocular movements intact, sclera anicteric, conjunctiva clear. No lid lag. EARS, NOSE, THROAT: Ears normal, nares patent, oropharynx clear without exudates. Moist mucous membranes. NECK: Normal range of motion, supple without lymphadenopathy, JVD, or masses. LUNGS: Breath sounds equal, clear to auscultation bilaterally. No wheezes, and no crackles. No accessory muscle use. HEART: Regular rate and rhythm, normal S1 and S2 without murmur, rub or gallop. ABDOMEN: Soft, tender to palpation b/l LQ, L flank tenderness to fist percussion , not distended, normoactive bowel sounds, no guarding, no rebound, no masses. No hepatomegaly or splenomegaly. MUSCULOSKELETAL: Normal range of motion at all joints. No bony deformities or tenderness. No CVA tenderness. UPPER EXTREMITIES: 2+ pulses, warm, well-perfused. No cyanosis. No clubbing. No peripheral edema. LOWER EXTREMITIES: 2+ pulses, warm, well-perfused. No calf tenderness. No peripheral edema. NEUROLOGICAL: Cranial nerves II-XII intact. Normal speech. Normal gait. PSYCHIATRIC: Cooperative. Good eye contact. Appropriate mood and affect. SKIN: Warm, dry, normal turgor, no rashes or lesions noted, normal capillary refill. Laboratory Results - last 24 hr 09/26/17 09/26/17 09/26/17 16:30 16:30 17:39 WBC 7.4 RBC 4.97 Hgb 13.0 Hct 37.5 MCV 75.4 L MCH 26.1 MCHC 34.6 RDW 15.3 Plt Count 158 MPV 9.0 Neutrophils % 71.1 Lymphocytes % 15.4 D Monocytes % 12.8 H Eosinophils % 0.1 Basophils % 0.6 Sodium 135 L Potassium 4.2 Chloride 99 Carbon Dioxide 29 Anion Gap 7 L BUN 13 Creatinine 1.5 H D Creat Clearance w eGFR 49.34 Random Glucose 180 H Calcium 8.7 Total Bilirubin 1.2 H D AST 24 D ALT 28 Alkaline Phosphatase 62 Total Protein 7.1 Albumin 3.9 Urine Color Straw Urine Appearance Clear Urine pH 6.0 Ur Specific [place] 1.006 Urine Protein Negative Urine Glucose (UA) 3+ H Urine Ketones Trace H Urine Blood Negative Urine Nitrite Negative Urine Bilirubin Negative Urine Urobilinogen Negative Ur Leukocyte Esterase Negative ASSESSMENT/PLAN: Pt is a 51 y/o M with PMH HLD, HTN, DM and recent obs stay at this facility for L renal stone who presents to ED with recurrent pain in L flank now extending to groin. Pt is being admitted for evaluation and treatment of L pyelonephritis with hydronephrosis and fadi. #FADI 2/2 pyelonephritis with hydronephrosis -Pitch Worker 1.5 today -CT (08/26/2017) revealed 4 mm distal left ureteral calculus with mild hydronephrosis -Renal U/S prelim: Impression: mild - mod L collecting system dilation. No non- obstructing renal stones. No gross change from prior study. pending official read -Urology (Dr. Roberto) consult -NS -Tamsulosin -Morphine #HTN -c/w enalapril #DM -continue holding Metformin in light of recent contrast exposure -BGM ACHS -ISS #HLD -c/w zocor #FEN -NS @ 125 -mild hyponatremia. Giving NS -NPO #PPx -Hep SubQ #Dispo -Admit for nephrolithiasis, hydronephrosis, fadi Note: Meds reconciled with patient Frank Riley MD PGY-1 IM Visit type - Emergency Visit Emergency Visit: Yes ED Registration Date: 09/26/17 Care time: The patient presented to the Emergency Department on the above date and was hospitalized for further evaluation of their emergent condition. - New Patient This patient is new to me today: No - Critical Care Critical Care patient: No Hospitalist Screening - Colonoscopy Questionnaire Colonoscopy Questionnaire: Colonoscopy Questionnaire - Patient: 50 - 75 years old and never had a screening colonoscopy: Unknown History of colon or rectal polyps, or CA: No History of IBD, Crohn's disease or UC: No History of abdominal radiation therapy as a child: No - Relative: 1 with colon or rectal CA, or polyps at age 60 or younger: No Colon or rectal CA diagnosed at age 45 or younger: No Multiple relatives with colon or rectal CA: No - Outcome: Screening Result: Negative Screen
[2017-09-26] MEDS ORDERED: INSULIN SLIDING SCALE (NOVOLOG) 1 VIAL SQ SCH (22:00)
[2017-09-26] MEDS: SODIUM CHLORIDE 1,000 ML IV SCH (22:03)
[2017-09-26] MEDS: HEPARIN NA (PORCINE) 5,000 UNITS/ML 1ML VIAL SQ SCH (22:03)
[2017-09-26] MEDS: ATORVASTATIN CA 20 MG TABLET (FP) PO SCH (22:04)
[2017-09-26] MEDS: INSULIN SLIDING SCALE (NOVOLOG) 1 VIAL SQ SCH (22:04)
[2017-09-26 23:01] VITALS: BMI 28.8
--- NOTE | 2017-09-27 02:54 | PN ---
Teaching Attending Note Name of Resident: Frank Riley ATTENDING PHYSICIAN STATEMENT I saw and evaluated the patient. I reviewed the resident's note and discussed the case with the resident. I agree with the resident's findings and plan as documented. SUBJECTIVE: OBJECTIVE: ASSESSMENT AND PLAN: Pt is a 51 y/o M with PMH HLD, HTN, DM and recent obs stay at this facility for L renal stone who presents to ED with recurrent pain in L flank now extending to groin. Pt is being admitted for evaluation and treatment of L pyelonephritis with hydronephrosis and kacie. #KACIE 2/2 pyelonephritis with hydronephrosis -Service Tester 1.5 today -CT (08/26/2017) revealed 4 mm distal left ureteral calculus with mild hydronephrosis -Renal U/S pending official read -Urology (Dr. Roberto) consult -NS -Tamsulosin -Morphine #HTN -c/w enalapril
[2017-09-27] MEDS: INSULIN SLIDING SCALE (NOVOLOG) 1 VIAL SQ SCH ×4 (06:14→21:05)
[2017-09-27] MEDS: HEPARIN NA (PORCINE) 5,000 UNITS/ML 1ML VIAL SQ SCH ×2 (06:14→13:30)
[2017-09-27 07:43] LABS: BASO % 0.2 % (0-2.0); EOS % 0.2 % (0-4.5); HEMATOCRIT 34.4 % (35.4-49); HEMOGLOBIN 11.8 GM/dL (11.7-16.9); LYMPH % 17.6 % (8-40); MCH 25.7 pg (25.7-33.7); MCHC 34.2 g/dl (32.0-35.9); MEAN CELL VOLUME 75.3 fl (80-96); MEAN PLT VOLUME 9.1 fl (7.5-11.1); MONO % 12.2 % (3.8-10.2); NEUT % 69.8 % (42.8-82.8); PLATELET COUNT 157 K/MM3 (134-434); RBC 4.57 M/mm3 (4.00-5.60); RDW 15.2 % (11.9-15.9)
[2017-09-27 08:07] LABS: INR 1.09 (0.82-1.09); PROTHROMBIN TIME (PATIENT) 12.3 SEC (9.7-13.0)
[2017-09-27 08:11] LABS: ALBUMIN 3.3 g/dl (3.4-5.0); ANION GAP 8 (8-16); BLOOD UREA NITROGEN 11 mg/dL (7-18); CHLORIDE 107 mmol/L (98-107); CO2 26 mmol/L (21-32); GLUCOSE,RANDOM 100 mg/dL (74-106); MAGNESIUM 2.1 mg/dL (1.8-2.4); POTASSIUM 4.1 mmol/L (3.5-5.1); SODIUM 141 mmol/L (136-145)
[2017-09-27 08:15] LABS: ALK PHOS 57 U/L (45-117); BILIRUBIN,TOTAL 0.8 mg/dL (0.2-1.0); CREATININE 1.2 mg/dL (0.7-1.3); PHOSPHOROUS 3.1 mg/dL (2.5-4.9); SGOT/AST 24 U/L (15-37); SGPT/ALT 24 U/L (12-78); TOT PROT 6.1 g/dl (6.4-8.2)
[2017-09-27] MEDS ORDERED: TAMSULOSIN HCL 0.4 MG CAP.ER.24H (FP) PO SCH (08:30)
[2017-09-27] MEDS ORDERED: ENALAPRIL MALEATE 5 MG TABLET (FP) PO SCH (10:00)
[2017-09-27] MEDS ORDERED: PANTOPRAZOLE 20 MG TABLET (FP) PO SCH (10:00)
[2017-09-27] MEDS ORDERED: PANTOPRAZOLE 40 MG TABLET (FP) PO SCH (10:00)
[2017-09-27] MEDS ORDERED: ASPIRIN 81 MG CHEWABLE TABLETS PO SCH (10:00)
[2017-09-27] MEDS: SODIUM CHLORIDE 1,000 ML IV SCH ×3 (12:30→21:05)
--- NOTE | 2017-09-27 15:37 | PN ---
Teaching Attending Note Name of Resident: Durga Neff SUBJECTIVE: Patient seen and examined. left flank pain improved, no new complaints. OBJECTIVE: Vital Signs Period Temp Pulse Resp BP Sys/Manzo Pulse Ox Last 24 Hr 98.0 F-99 F 78-91 17-22 131-155/82-100 94-100 Intake & Output 09/24/17 09/25/17 09/26/17 09/27/17 23:59 23:59 23:59 23:59 Intake Total 800 Balance 800 Weight 213 lb General: ambulating in room, no acute distress Abdomen:soft, NT, no CVA tenderness Extremities: no edema Chest: CTAB, no rales or wheezing Home Medication List Medication Instructions Recorded Confirmed Type Aspirin [ASA -] 81 mg PO DAILY 09/25/17 09/25/17 History Enalapril Maleate [Vasotec -] 5 mg PO DAILY 09/25/17 09/25/17 History Glyburide/Metformin HCl 2 each PO BID 09/25/17 09/25/17 History [Glyburide-Metformin 5-500 mg] Insulin Glargine,Hum.rec.anlog 75 unit SQ HS 09/25/17 09/25/17 History [Lantus] Liraglutide [Victoza -] 1.2 mg SQ HS 09/25/17 09/25/17 History Omeprazole 20 mg PO DAILY 09/25/17 09/25/17 History Simvastatin [Zocor -] 40 mg PO HS 09/25/17 09/25/17 History Active Medications Generic Name Dose Route Start Last Admin Trade Name Freq PRN Reason Stop Dose Admin Aspirin 81 mg 09/27/17 10:00 09/27/17 09:50 Asa - PO 81 mg DAILY AGUILAR Administration Atorvastatin Calcium 20 mg 09/26/17 22:00 09/26/17 22:04 Lipitor - PO 20 mg HS AGUILAR Administration Heparin Sodium (Porcine) 5,000 unit 09/26/17 22:00 09/27/17 13:30 Heparin - SQ 5,000 unit TID AGUILAR Administration Sodium Chloride 1,000 mls @ 125 mls/hr 09/26/17 20:00 09/27/17 12:30 Normal Saline - IV 125 mls/hr ASDIR AGUILAR Administration Insulin Aspart 1 vial 09/26/17 22:00 09/27/17 12:04 Novolog Vial Sliding Scale - SQ Not Given ACHS [facility] Protocol Morphine Sulfate 2 mg 09/26/17 19:49 09/27/17 15:05 Morphine Sulfate IVPUSH 2 mg Q4H PRN Administration PAIN LEVEL 1-5 Ondansetron HCl 4 mg 09/26/17 20:24 Zofran - PO DAILY PRN NAUSEA AND/OR VOMITING Pantoprazole Sodium 40 mg 09/27/17 10:00 09/27/17 09:50 Protonix - PO 40 mg DAILY AGUILAR Administration Tamsulosin HCl 0.4 mg 09/27/17 08:30 09/27/17 08:50 Flomax - PO 0.4 mg DAILY@0830 AGUILAR Administration ASSESSMENT AND PLAN: 51 yom with HTN, HLD, IDDM, left nephrolithiasis with obstructive uropathy, recently d/neetu comes back with persistent symptoms and FADI. _left nephrolithiasis with hydronephrosis -FADI -IDDM -HTN -HLD Plan: IVF, pain control. Discussed with Dr. Walt Branham, plan for intervention tomorrow. Resume diet, Npo after midnight. Continue flomax. Hold Levemir and oral hypoglycemics, ISS. Hold ACEi till renal function stable. Dispo in 24 hours pending urology intervention if no concerns.
[2017-09-27] MEDS: ACETAMINOPHEN 325 MG TABLET (FP) PO PRN ×3 (16:19→23:31)
[2017-09-27] MEDS: morphine SULFATE 4 MG/ML VIAL IVPUSH PRN ×2 (17:59→22:14)
[2017-09-27] MEDS: ATORVASTATIN CA 20 MG TABLET (FP) PO SCH (21:07)
[2017-09-28] MEDS: morphine SULFATE 4 MG/ML VIAL IVPUSH PRN ×2 (02:02→08:25)
[2017-09-28] MEDS: SODIUM CHLORIDE 1,000 ML IV SCH (05:00)
[2017-09-28] MEDS: INSULIN SLIDING SCALE (NOVOLOG) 1 VIAL SQ SCH ×3 (06:12→16:54)
[2017-09-28 07:02] LABS: BASO % 0.2 % (0-2.0); EOS % 0.4 % (0-4.5); HEMATOCRIT 33.2 % (35.4-49); HEMOGLOBIN 11.4 GM/dL (11.7-16.9); LYMPH % 15.1 % (8-40); MCHC 34.4 g/dl (32.0-35.9); MEAN CELL VOLUME 75.6 fl (80-96); MEAN PLT VOLUME 9.3 fl (7.5-11.1); MONO % 13.1 % (3.8-10.2); NEUT % 71.2 % (42.8-82.8); PLATELET COUNT 163 K/MM3 (134-434); RBC 4.39 M/mm3 (4.00-5.60); RDW 14.9 % (11.9-15.9); WHITE BLOOD COUNT 7.6 K/mm3 (4.0-10.0)
[2017-09-28 07:32] LABS: ANION GAP 7 (8-16); BLOOD UREA NITROGEN 13 mg/dL (7-18); CHLORIDE 104 mmol/L (98-107); CO2 27 mmol/L (21-32); CREATININE 1.3 mg/dL (0.7-1.3); GLUCOSE,RANDOM 150 mg/dL (74-106); POTASSIUM 4.6 mmol/L (3.5-5.1); SODIUM 138 mmol/L (136-145)
[2017-09-28] MEDS ORDERED: PROPOFOL 20 ML ONE (09:53)
[2017-09-28] MEDS ORDERED: MIDAZOLAM HCL 2 MG/2 ML SINGLE DOSE VIAL ONE (09:53)
--- NOTE | 2017-09-28 11:08 | CONSULT ---
Consult - text type - Consultation Consultation Note: cc: left renal colic with ureteral stone/hydronephrosis with acute renal insufficiency hpi: patient is a 51 year old male with history of IDDM/Htn with obstructing left ureteral stone with severe hydro, nausea, vomiting with unrelenting pain and acute renal insufficiency. Patient denies fever but did describe chills. PE afeb severe left CVAT ct scan/ultrasound reviewed creatinine 1.3 imp left hydro CRISTY left ureteral stone renal colic plan patient is emergently taken to the OR in order to preserve renal function in an IDDM/Htn patient
--- NOTE | 2017-09-28 11:33 | OP ---
Operative Note - Note: Operative Date: 09/28/17 Pre-Operative Diagnosis: left ureteral stone with left hydronephrosis/acute renal insufficiency Operation: cystoscopy/left retrograde pyelogram/left ureteroscopic stone basketing/left ureteral stent placement Findings: 5 mm impacted left distal ureteral stone with grade 4/5 hydroureteronephrosis Post-Operative Diagnosis: Same as Pre-op Surgeon: Remi Roberto Anesthesia: General Specimens Removed: left ureteral stone Drains & Tubes with Location: 11/08 left ureteral stent Operative Report Dictated: Yes
[2017-09-28] MEDS ORDERED: SODIUM CHLORIDE 1,000 ML IV SCH (11:47)
[2017-09-28] MEDS ORDERED: ACETAMINOPHEN 325 MG TABLET (FP) PO PRN (11:47)
[2017-09-28] MEDS ORDERED: INSULIN (NOVOLOG) ASPART 100 UNITS/ML 10ML VIAL ONE (12:37)
[2017-09-28] MEDS ORDERED: ONDANSETRON 4 MG/2 ML VIAL IVPUSH PRN (12:52)
--- NOTE | 2017-09-28 14:19 | OP ---
DATE OF OPERATION: 09/28/2017 PREOPERATIVE DIAGNOSIS: Left ureteral stone with left hydronephrosis with acute renal insufficiency. POSTOPERATIVE DIAGNOSIS: Left ureteral stone with left hydronephrosis with acute renal insufficiency. PROCEDURE: Cystoscopy with left retrograde pyelogram, left ureteroscopic stone basketing, left stent placement. ATTENDING: Natalia Peng MD ANESTHESIA: General. DESCRIPTION OF PROCEDURE: The patient was brought in the operating room and placed in the supine position on the operating room table. The patient has a history of a distal left ureteral stone with a worsening hydronephrosis. In addition, the patient has acute renal insufficiency with a baseline history of insulin-dependent diabetes mellitus and hypertension. The patient is at high risk for damage to his kidneys secondary to the obstruction. The patient was taken emergently to the operating room. The patient understands all risks and benefits. The patient was placed in a supine position on the operating room table. Anesthesia and preoperative antibiotics were administered. At this point, the patient was placed in a dorsal lithotomy position and prepped and draped in the usual sterile manner. Cystoscopy was performed, and there was no evidence of left ureteral stone passage. A retrograde pyelogram shows a filling defect in the left distal ureter consistent with a stone. In addition, there is a grade 4/5 hydroureteronephrosis. The patient at this time had a wire passed under fluoroscopic visualization to the kidney. Ureteroscopy was then performed, and a 5-mm stone was identified. A ureteroscope was then utilized, and on direct vision, the left ureteral stone was basketed and removed. This was sent to Pathology for evaluation. Once this was done, a 6-[place] 24-cm ureteral stent was placed over the wire utilizing the Seldinger technique. No complications were noted. The patient tolerated the procedure very well. DISPOSITION: Patient to recovery room. NATALIA PENG M.D. [id number]
--- NOTE | 2017-09-28 14:43 | DS ---
Physical Exam: SUBJECTIVE: Patient seen and examined at bedside. No acute events. Pt is currently stable, afebrile. Surgery was performed this afternoon and stone was extracted. OBJECTIVE: Vital Signs Period Temp Pulse Resp BP Sys/Manzo Pulse Ox Last 24 Hr 98.4 F-98.9 F 74-90 14-20 110-166/85-91 95-98 PHYSICAL EXAM GENERAL: The patient is awake, alert, and fully oriented, in no acute distress. HEAD: Normal with no signs of trauma. EYES: sclera anicteric, conjunctiva clear. ENT: oropharynx clear without exudates, moist mucous membranes. NECK: Trachea midline, full range of motion, supple. LUNGS: Breath sounds equal, clear to auscultation bilaterally, no wheezes, no crackles, no accessory muscle use. HEART: Regular rate and rhythm, S1, S2 without murmur, rub or gallop. ABDOMEN: Soft, mildly tender, nondistended, normoactive bowel sounds, no guarding, no rebound, no hepatosplenomegaly, no masses. EXTREMITIES: 2+ pulses, warm, well-perfused, no edema. NEUROLOGICAL: Cranial nerves II through XII grossly intact. Normal speech, gait not observed. PSYCH: Normal mood, normal affect. SKIN: Warm, dry, normal turgor, no rashes or lesions noted. LABS Laboratory Results - last 24 hr 09/27/17 09/27/17 09/28/17 16:23 21:02 05:26 WBC RBC Hgb Hct MCV MCH MCHC RDW Plt Count MPV Neutrophils % Lymphocytes % Monocytes % Eosinophils % Basophils % Sodium Potassium Chloride Carbon Dioxide Anion Gap BUN Creatinine POC Glucometer 102 208 140 Random Glucose Calcium 09/28/17 09/28/17 09/28/17 06:47 06:47 12:35 WBC 7.6 RBC 4.39 Hgb 11.4 L Hct 33.2 L MCV 75.6 L MCH 26.0 MCHC 34.4 RDW 14.9 Plt Count 163 MPV 9.3 Neutrophils % 71.2 Lymphocytes % 15.1 Monocytes % 13.1 H Eosinophils % 0.4 D Basophils % 0.2 Sodium 138 Potassium 4.6 Chloride 104 Carbon Dioxide 27 Anion Gap 7 L BUN 13 Creatinine 1.3 POC Glucometer 195 Random Glucose 150 H D Calcium 8.0 L HOSPITAL COURSE: Date of Admission:09/26/17 Date of Discharge: 09/28/17 Pt is a 51 y/o M recently discharged from this facility from an obs stay for the same problem who presents to ED with L flank and b/l groin pain. Pt was discharged on 09/25/17 after workup of nephrolithiasis and was treated conservatively. Pt went home feeling fine, but found that his pain became progressively worse, which prompted him to return to the ED. Pt was admitted with fadi 2/2 nephrolithiasis and hydronephrosis. Diagnosis was confirmed on U/S. Pt was given tamsulosin, fluids, NPO. Pain was controlled with morphine. His stone did not pass spontaneously, so urology was consulted. Pt went to the OR to have the stone extracted. Procedure went well. HTN was treated with enalapril. DM was treated with ISS. Metformin was held in light of possible contrast exposure. HLD was treated zocor. Pt is currently comfortable, afebrlie, stable for discharge. Frnak Riley MD PGY-1 IM Minutes to complete discharge: 30 Discharge Summary Reason For Visit: ACUTE KIDNEY INJURY Current Active Problems FADI (acute kidney injury) (Acute) Condition: Good - Instructions Diet, Activity, Other Instructions: You are being sent home with the following: lipitor 20 mg at night protonix 40 mg daily ASA 81 mg daily Vasotec 5 mg daily Insulin glargine Victoza 1.2 mg subcutaneous at night omeprazole 20 mg daily Zocor 40 mg daily Please do not take the following medication for 2 days. Resume on 10/01/2017. Glyburide/Metformin 2 tabs twice daily Continue all your other medications as before. You are advised to check your blood sugars before meals and at bedtime and maintain a diary till your next doctor visit. Notify your doctor if < 75 or persistently > 200 or any reading > 400 noted. Drink plenty of water. Follow Up: Follow up with urologist after one week for stent removal. BMP (blood test to check your kidneys) in 1 week with your doctor. PCP In 1 week. If you develop new symptoms or if your symptoms recur, fevers, chils, back or belly pain, urinary problems, burning, dark or cloudy urine, please return to the emergency department. Referrals: Remi Roberto MD [Staff Physician] - 1 Week Zaynab Casanova [Primary Care Provider] - 1 Week Disposition: HOME - Home Medications Comprehensive Discharge Medication List: Ambulatory Orders Aspirin [ASA -] 81 mg PO DAILY 09/25/17 Enalapril Maleate [Vasotec -] 5 mg PO DAILY 09/25/17 Glyburide/Metformin HCl [Glyburide-Metformin 5-500 mg] 2 each PO BID 09/25/17 Insulin Glargine,Hum.rec.anlog [Lantus] 75 unit SQ HS 09/25/17 Liraglutide [Victoza -] 1.2 mg SQ HS 09/25/17 Omeprazole 20 mg PO DAILY 09/25/17 Pantoprazole Sodium [Protonix] 40 mg PO DAILY #21 tablet. 09/25/17 Simvastatin [Zocor -] 40 mg PO HS 09/25/17 This patient is new to me today: No Emergency Visit: No Critical Care patient: No - Discharge Referral Referred to [facility] No
[2017-09-28 14:51] VITALS: BP 149/86; PULSE 80; TEMP 97.9
--- NOTE | 2017-09-28 15:10 | PN ---
Teaching Attending Note Name of Resident: Frank Riley ATTENDING PHYSICIAN STATEMENT I saw and evaluated the patient. I reviewed the resident's note and discussed the case with the resident. I agree with the resident's findings and plan as documented with exceptions below. SUBJECTIVE: Patient seen and examined. no pain currently, tolerated lunch well. OBJECTIVE: Vital Signs Period Temp Pulse Resp BP Sys/Manzo Pulse Ox Last 24 Hr 97.9 F-98.9 F 74-90 14-22 110-166/85-91 95-98 Intake & Output 09/25/17 09/26/17 09/27/17 09/28/17 23:59 23:59 23:59 23:59 Intake Total 1225 2800 Output Total 2250 Balance 1225 550 Weight 213 lb General: sitting in bed in no acute distress Abdomen:soft, no CVA or suprapubic tenderness, no voluntary or involuntary guarding or rigidity Home Medication List Medication Instructions Recorded Confirmed Type Aspirin [ASA -] 81 mg PO DAILY 09/25/17 09/28/17 History Enalapril Maleate [Vasotec -] 5 mg PO DAILY 09/25/17 09/28/17 History Insulin Glargine,Hum.rec.anlog 75 unit SQ HS 09/25/17 09/28/17 History [Lantus] Liraglutide [Victoza -] 1.2 mg SQ HS 09/25/17 09/28/17 History Omeprazole 20 mg PO DAILY 09/25/17 09/28/17 History Simvastatin [Zocor -] 40 mg PO HS 09/25/17 09/28/17 History Active Medications Generic Name Dose Route Start Last Admin Trade Name Freq PRN Reason Stop Dose Admin Acetaminophen 650 mg 09/28/17 11:47 Tylenol - PO Q4H PRN PAIN LEVEL 1-5 Atorvastatin Calcium 20 mg 09/28/17 22:00 Lipitor - PO HS AGUILAR Sodium Chloride 1,000 mls @ 125 mls/hr 09/28/17 11:47 09/28/17 11:52 Normal Saline - IV 100 mls ASDIR AGUILAR Administration Insulin Aspart 1 vial 09/28/17 16:30 09/28/17 12:38 Novolog Vial Sliding Scale - SQ 2 units ACHS AGUILAR Administration Protocol Ondansetron HCl 4 mg 09/28/17 12:52 Zofran Injection IVPUSH Q6H PRN NAUSEA AND/OR VOMITING Pantoprazole Sodium 40 mg 09/29/17 10:00 Protonix - PO DAILY AGUILAR Laboratory Results - last 24 hr 09/27/17 09/27/17 09/28/17 16:23 21:02 05:26 WBC RBC Hgb Hct MCV MCH MCHC RDW Plt Count MPV Neutrophils % Lymphocytes % Monocytes % Eosinophils % Basophils % Sodium Potassium Chloride Carbon Dioxide Anion Gap BUN Creatinine POC Glucometer 102 208 140 Random Glucose Calcium 09/28/17 09/28/17 09/28/17 06:47 06:47 12:35 WBC 7.6 RBC 4.39 Hgb 11.4 L Hct 33.2 L MCV 75.6 L MCH 26.0 MCHC 34.4 RDW 14.9 Plt Count 163 MPV 9.3 Neutrophils % 71.2 Lymphocytes % 15.1 Monocytes % 13.1 H Eosinophils % 0.4 D Basophils % 0.2 Sodium 138 Potassium 4.6 Chloride 104 Carbon Dioxide 27 Anion Gap 7 L BUN 13 Creatinine 1.3 POC Glucometer 195 Random Glucose 150 H D Calcium 8.0 L ASSESSMENT AND PLAN: 51 yom with HTN, HLD, IDDM, left nephrolithiasis with obstructive uropathy, recently d/neetu comes back with persistent symptoms and FADI. _left nephrolithiasis with hydronephrosis -FADI -IDDM -HTN -HLD Plan: s/p left ureteral stent placement, patient doing well, renal function stable. Discussed with edis Mireles for d/c with outpatient urology follow up in 1 week for stent removal. Resume all medications except glyburide/metformin, hold for 48 hours and resume outpatient based on blood sugar readings. d/c home with outpatient urology follow up in 1 week. Plan discussed with patient in detail, all questions answered.
[2017-09-28] MEDS ORDERED: ATORVASTATIN CA 20 MG TABLET (FP) PO SCH (22:00)
--- NOTE | 2017-09-29 08:50 | PATH ---
Surgical Pathology Report Patient Name: JOCELYNE CÁRDENAS Med. Rec. #: [id number] /Age/Gender: 1965 (Age: 51) / M Account: [id number] Location: [address] [place] [address]/[facility] Taken: 09/28/2017 Received: 09/28/2017 Reported: 09/29/2017 Physicians: Durga Neff M.D. Specimen(s) Received URETERAL STONE Clinical History Acute kidney injury Final Diagnosis URETERAL STONE, RIGHT, REMOVAL: URETEROLITHIASIS. MACROSCOPIC DIAGNOSIS. Electronically Signed Bhakti Raines M.D. Gross Description Received fresh labeled "right ureteral stone," is a 0.4 cm in greatest dimension uriostegui, irregular calculus which is sent for chemical analysis. /09/28/201709/28/2017
[2017-09-29] MEDS ORDERED: PANTOPRAZOLE 40 MG TABLET (FP) PO SCH (10:00)
== END 2017-09-28 18:56 | disposition home or self-care (01) | DRG 443 ==
LOC: JER 16:10 → JERBED 19:11 → J6S 21:39
PROVIDERS: ADMIT Hospitalist; ATTEND Hospitalist
PROC: 0T778ZZ Dilation of Left Ureter, Via Natural or Artificial Opening Endoscopic (ICD-10-PCS; 2017-09-28)
PROC: 0TC78ZZ Extirpation of Matter from Left Ureter, Via Natural or Artificial Opening Endoscopic (ICD-10-PCS; principal; 2017-09-28 12:00)
PROC: BT1FZZZ Fluoroscopy of Left Kidney, Ureter and Bladder (ICD-10-PCS; 2017-09-28 12:00)
DX: N17.9 Acute kidney failure, unspecified (principal); N13.2 Hydronephrosis with renal and ureteral calculous obstruction; E11.9 Type 2 diabetes mellitus without complications; E78.5 Hyperlipidemia, unspecified; N13.6 Pyonephrosis; E87.1 Hypo-osmolality and hyponatremia
CPT/HCPCS: 36415; 76775-TC; 80048; 80053; 81003; 82360; 82962; 83735; 84100; 85025; 85610; 85730; 88305-TC; 94760; 99283-25; J1644; J7030

== ENCOUNTER 2020-01-07 15:10 | Inpatient (IN) | payer OTHER ==
[2020-01-07 15:22] VITALS: BMI 29.1
[2020-01-07] MEDS ORDERED: SODIUM CHLORIDE 1,000 ML IV STA ×2 (15:56→20:43)
--- NOTE | 2020-01-07 16:04 | PDOC ---
History of Present Illness - General History Source: Patient Exam Limitations: No Limitations <Elisabeth Adhikari - Last Filed: 01/07/20 20:44> <Soledad Garnett - Last Filed: 01/07/20 21:14> - General Chief Complaint: Hematuria Stated Complaint: BACK PAIN Time Seen by Provider: 01/07/20 15:45 Past History - Travel History Traveled outside of the country in the last 30 days: No Close contact w/someone who was outside of country & ill: No - Medical History COPD: No Diabetes: Yes HTN: Yes Hypercholesterolemia: Yes Kidney Stones: Yes - Psycho-Social/Smoking History Smoking History: Never smoked Have you smoked in the past 12 months: No - Substance Abuse Hx (Audit-C & DAST Scrn) How often the patient has a drink containing alcohol: Monthly or less Score: In Men: 4 or > Positive; In Women: 3 or > Positive: 1 Screen Result (Pos requires Nsg. Audit-10AR): Negative In the last yr the pt used illegal drug/Rx for NonMed reason: No Score: Yes response is considered Positive: 0 Screen Result (Positive result requires Nsg. DAST-10): Negative <Elisabeth Adhikari - Last Filed: 01/07/20 20:44> <Soledad Garnett - Last Filed: 01/07/20 21:14> - Medical History Allergies/Adverse Reactions: Allergies Allergy/AdvReac Type Severity Reaction Status Date / Time No Known Allergies Allergy Verified 01/07/20 15:12 Home Medications: Ambulatory Orders Aspirin Coated [Ecotrin -] 81 mg PO DAILY 01/07/20 Enalapril Maleate [Vasotec] 5 mg PO BID 01/07/20 Glyburide/Metformin HCl [Glyburide-Metformin 5-500 mg] 2 each PO BID 01/07/20 Metoprolol Succinate [Toprol Xl -] 25 mg PO DAILY 01/07/20 Omeprazole 40 mg PO DAILY 01/07/20 Ranolazine [Ranexa -] 1,000 mg PO BID 01/07/20 Simvastatin [Zocor -] 40 mg PO HS 01/07/20 Review of Systems - Review of Systems Able to Perform ROS?: Yes Comments:: 01/07/20 15:54 CONSTITUTIONAL: Absent: fever, chills, diaphoresis, generalized weakness, malaise, loss of appetite HEENT: Absent: rhinorrhea, nasal congestion, throat pain, throat swelling, difficulty swallowing, mouth swelling, ear pain, eye pain, visual Changes CARDIOVASCULAR: Absent: chest pain, loss of consciousness, palpitations, irregular heart rate, peripheral edema RESPIRATORY: Absent: cough, shortness of breath, dyspnea with exertion, orthopnea, wheezing, stridor, hemoptysis GASTROINTESTINAL: Absent: abdominal pain, abdominal distension, nausea, vomiting, diarrhea, constipation, melena, hematochezia GENITOURINARY: Present: Hematuria, right-sided flank pain, dysuria Absent: frequency, urgency, hesitancy, hematuria, genital pain MUSCULOSKELETAL: Absent: myalgia, arthralgia, joint swelling SKIN: Absent: rash, itching, pallor HEMATOLOGIC/IMMUNOLOGIC: Absent: easy bleeding, easy bruising, lymphadenopathy, frequent infections ENDOCRINE: Absent: unexplained weight gain, unexplained weight loss, heat intolerance, cold intolerance NEUROLOGIC: Absent: headache, focal weakness or paresthesias, dizziness, unsteady gait, seizure, mental status changes, bladder or bowel incontinence PSYCHIATRIC: Absent: anxiety, depression, suicidal or homicidal ideation, hallucinations. Is the patient limited Grenadian proficient: No <Elisabeth Adhikari - Last Filed: 01/07/20 20:44> *Physical Exam - Vital Signs Last Vital Signs Temp Pulse Resp BP Pulse Ox 99.2 F 121 H 20 126/75 99 01/07/20 15:15 01/07/20 15:15 01/07/20 15:15 01/07/20 15:15 01/07/20 15:15 - Physical Exam 01/07/20 15:54 GENERAL: Well developed, well nourished. Awake and alert. No acute distress. HEENT: Normocephalic, atraumatic. PERRLA, EOMI. No conjunctival pallor. Sclera are non- icteric. Moist mucous membranes. NECK: Supple. Full ROM. CARDIOVASCULAR: Regular rate and rhythm. Distal pulses are 2+ and symmetric. PULMONARY: No evidence of respiratory distress. Breathing comfortably ORA. ABDOMINAL: Suprapubic discomfort. Soft. Non-tender. Non-distended. No rebound or guarding. No organomegaly. Normoactive bowel sounds. MUSCULOSKELETAL Normal range of motion at all joints. No bony deformities or tenderness. No CVA tenderness. EXTREMITIES: No cyanosis. No clubbing. No edema. No calf tenderness. SKIN: Warm and dry. Normal capillary refill. No rashes. No jaundice. NEUROLOGICAL: Alert, awake, appropriate. Cranial nerves 2-12 intact. No deficits to light touch and temperature in face, upper extremities and lower extremities. No motor deficits in the in face, upper extremities and lower extremities. Normoreflexic in the upper and lower extremities. Normal speech. Toes are down-going bilaterally. Gait is normal without ataxia. PSYCHIATRIC: Cooperative. Good eye contact. Appropriate mood and affect. <Elisabeth Adhikari - Last Filed: 01/07/20 20:44> - Vital Signs Last Vital Signs Temp Pulse Resp BP Pulse Ox 99.2 F 115 H 18 113/72 97 01/07/20 15:15 01/07/20 19:24 01/07/20 19:24 01/07/20 19:24 01/07/20 19:24 <Soledad Garnett - Last Filed: 01/07/20 21:14> ED Treatment Course - LABORATORY CBC & Chemistry Diagram: 01/07/20 16:56 01/07/20 16:56 <Elisabeth Adhikari - Last Filed: 01/07/20 20:44> - LABORATORY CBC & Chemistry Diagram: 01/07/20 16:56 01/07/20 16:56 - ADDITIONAL ORDERS Additional order review: Laboratory Results 01/07/20 01/07/20 01/07/20 16:56 16:56 14:14 PT with INR 12.40 INR 1.05 Sodium 135 L Potassium 4.4 Chloride 99 Carbon Dioxide 26 Anion Gap 10 BUN 17.5 Creatinine 1.2 Est GFR (CKD-EPI)AfAm 78.98 Est GFR (CKD-EPI)NonAf 68.14 Random Glucose 126 H Calcium 9.7 Total Bilirubin 0.8 AST 25 ALT 32 Alkaline Phosphatase 63 Total Protein 7.8 Albumin 4.3 Urine Color Red Urine Appearance Turbid Urine pH 5.0 Ur Specific Maud 1.021 Urine Protein 3+ H Urine Glucose (UA) Negative Urine Ketones Negative Urine Blood 3+ H Urine Nitrite Positive H Urine Bilirubin 2+ H Urine Urobilinogen 0.2 Ur Leukocyte Esterase 3+ H Urine WBC (Auto) 6058.1 Urine RBC (Auto) 72493.1 Urine Casts (Auto) 552.39 U Pathogenic Cast Auto Negative U Epithel Cells (Auto) 28.2 Urine Bacteria (Auto) 1989.8 01/07/20 16:56 RBC 5.41 MCV 78.8 L MCHC 32.8 RDW 14.9 MPV 10.0 Neutrophils % 73.2 Lymphocytes % 15.8 Monocytes % 10.4 H Eosinophils % 0.2 Basophils % 0.4 - Medications Given in the ED: ED Medications Discontinued Medications Generic Name Dose Route Start Last Admin Trade Name [place] PRN Reason Stop Dose Admin Acetaminophen 1,000 mg 01/07/20 18:15 01/07/20 18:51 Ofirmev Injection - IVPB 01/07/20 18:16 1,000 mg ONCE ONE Administration Sodium Chloride 1,000 mls @ 1,000 mls/hr 01/07/20 15:56 01/07/20 17:07 Normal Saline - IV 01/07/20 16:55 1,000 mls/hr ASDIR STA Administration Ceftriaxone Sodium 1,000 mg/ 50 mls @ 100 mls/hr 01/07/20 18:13 01/07/20 18:51 Dextrose IVPB 01/07/20 18:42 100 mls/hr ONCE ONE Administration <Soledad Garnett - Last Filed: 01/07/20 21:14> Medical Decision Making - Medical Decision Making 01/07/20 15:55 The patient is a 54-year-old male with past medical history of non-insulin- dependent diabetes, kidney stones, presents to the ER with right-sided flank pain and hematuria today. He states that he was seen by urology on 12/29/2019 and diagnosed with a large stone. He states that he was set up for procedure to remove the stone in February. He states that the hematuria is new and he was having pain with urination so he presented to the ER for evaluation. He states he took 2 Advil prior to arrival with relief of his symptoms. Denies nausea, vomiting, lightheadedness, chest pain, shortness of breath, abdominal pain, diarrhea. A/P: Hematuria On exam patient is some mild suprapubic discomfort. No CVA tenderness at this time. Basic labs, urine and CTs evaluate stone. IV fluids Re-evaluate 01/07/20 19:13 WBC 15, no shift. Cr WNL, no bump from baseline UA, gross hematuria, nitrite (+), Leuks 3+ CT as read by imaging in school suspension aide states no stones, b/l perinephric stranding On wet read, possible stone in the L ureter. Page sent to Dr. Roberto for consult 1g ceftriaxone given 01/07/20 20:44 Two calls placed to Dr. Roberto per Scribe service. No call back received. <Elisabeth Adhikari - Last Filed: 01/07/20 20:44> - Medical Decision Making 01/07/20 21:[address] chan and accepted to service. Covid swab ordered <Soledad Garnett - Last Filed: 01/07/20 21:14> Discharge <Elisabeth Adhikari - Last Filed: 01/07/20 20:44> - Discharge Information Problems reviewed: Yes - Admission Yes <Soledad Garnett - Last Filed: 01/07/20 21:14> - Discharge Information Clinical Impression/Diagnosis: Pyelonephritis Condition: Good - Follow up/Referral Referrals: Shaggy Bloom II, DO [Primary Care Provider] - - Patient Discharge Instructions - Post Discharge Activity
[2020-01-07 17:41] LABS: BASO % 0.4 % (0-2.0); EOS % 0.2 % (0-4.5); HEMATOCRIT 42.6 % (35.4-49); LYMPH % 15.8 % (8-40); MCH 25.9 pg (25.7-33.7); MCHC 32.8 g/dl (32.0-35.9); MEAN CELL VOLUME 78.8 fl (80-96); MONO % 10.4 % (3.8-10.2); NEUT % 73.2 % (42.8-82.8); PLATELET COUNT 181 K/MM3 (134-434); RBC 5.41 M/mm3 (4.00-5.60); RDW 14.9 % (11.9-15.9)
[2020-01-07 17:47] LABS: INR 1.05 (0.83-1.09); PROTHROMBIN TIME (PATIENT) 12.4 SEC (9.7-13.0)
[2020-01-07 17:56] LABS: URINE APPEARANCE TURBID; URINE BILIRUBIN 2+ (NEGATIVE); URINE COLOR RED; URINE GLUCOSE (UA) NEGATIVE (NEGATIVE); URINE KETONE NEGATIVE (NEGATIVE)
[2020-01-07 17:57] LABS: EPI CELLS 28.2 /uL (0-25.1); HYALINE CASTS 552.39 /uL (0-3.1); URINE BACTERIA 1989.8 /uL (0-1359); URINE LEUK ESTERASE 3+ (NEGATIVE); URINE NITRITE POSITIVE (NEGATIVE); URINE PROTEIN 3+ (NEGATIVE); URINE RBC 19765.1 /uL (0-23.9); URINE UROBILINOGEN 0.2 mg/dL (0.2-1.0); URINE WBC 6058.1 /uL (0-25.8)
[2020-01-07] MEDS ORDERED: CEFTRIAXONE 1,000 MG in DEXTROSE 5%-WATER - 50 ML IVPB ONE (18:13)
[2020-01-07] MEDS ORDERED: ACETAMINOPHEN 1000 MG/100 ML VIAL (NON FORMULARY) IVPB ONE (18:15)
[2020-01-07 18:23] LABS: ALBUMIN 4.3 g/dl (3.4-5.0); BILIRUBIN,TOTAL 0.8 mg/dL (0.2-1); BLOOD UREA NITROGEN 17.5 mg/dL (7-18); CALCIUM 9.7 mg/dL (8.5-10.1); CREATININE 1.2 mg/dL (0.55-1.3); POTASSIUM 4.4 mmol/L (3.5-5.1); TOT PROT 7.8 g/dl (6.4-8.2)
[2020-01-07] MEDS ORDERED: ACETAMINOPHEN INJECTION 100 ML IVPB ONE (18:41)
[2020-01-07] MEDS ORDERED: CEFTRIAXONE 1 GM/50 ML BAG ONE (18:42)
--- NOTE | 2020-01-07 21:18 | PN ---
Teaching Attending Note Name of Resident: Bobby Land ATTENDING PHYSICIAN STATEMENT I saw and evaluated the patient. I reviewed the resident's note and discussed the case with the resident. I agree with the resident's findings and plan as documented. SUBJECTIVE: Patient is a 54-year-old man with a PMH of NIDDM, HTN, HLD and Left side kidney stones, presents to the ER with right-sided flank pain and hematuria today. He states that he was seen by Urology on 12/29/2019 and diagnosed with a large stone. He states that he was set up for procedure to remove the stone in February. He states that the hematuria is new and he was having pain with urination so he presented to the ER for evaluation. He states he took 2 Advil prior to arrival with relief of his symptoms. Patient denies chest pain, shortness of breath, headache, palpitations, dizziness, fever, chills, nausea, vomiting, diarrhea, constipation, dysuria, melena or hematochezia. Ex smoker. Denies alcohol, tobacco or illicit drug use. No sick contacts or recent travels. Patient has a family history of kidney stone in his sister and DM in both parents. OBJECTIVE: Alert Vital Signs Period Temp Pulse Resp BP Sys/Manzo Pulse Ox Last 24 Hr 99.2 F 115-121 18-20 113-126/72-75 97-99 HEENT: No Jaundice, eye redness or discharge, PERRLA, EOMI. Normocephalic, atrau matic. External ears are normal and hearing is grossly intact. No nasal discharge. Neck: Supple, nontender. No palpable adenopathy or thyromegaly. No JVD Chest: Good effort. Clear to auscultation and percussion. Heart: Regular. No S3, rub or murmur Abdomen: Not distended, soft, suprapubic tenderness and no HSM. No rebound or guarding. Normal bowel sounds. Ext: Peripheral pulses intact. No leg edema. Skin: Warm and dry. No petechiae, rash or ecchymosis. Neuro: Alert. Oriented x3. CN 2-12 grossly intact. Sensation grossly intact in all four extremities and DTR are symmetric. Psych: Appropriate mood and affect. Good insight. Current Medications Generic Name Dose Route Start Last Admin Trade Name Freq PRN Reason Stop Dose Admin Sodium Chloride 1,000 mls @ 1,000 mls/hr 01/07/20 20:43 01/07/20 20:51 Normal Saline - IV 01/07/20 21:42 1,000 mls/hr ASDIR STA Administration Home Medications Medication Instructions Recorded Aspirin Coated [Ecotrin -] 81 mg PO DAILY 01/07/20 Enalapril Maleate [Vasotec] 5 mg PO BID 01/07/20 Glyburide/Metformin HCl 2 each PO BID 01/07/20 [Glyburide-Metformin 5-500 mg] Metoprolol Succinate [Toprol Xl -] 25 mg PO DAILY 01/07/20 Omeprazole 40 mg PO DAILY 01/07/20 Ranolazine [Ranexa -] 1,000 mg PO BID 01/07/20 Simvastatin [Zocor -] 40 mg PO HS 01/07/20 Abnormal Lab Results 01/07/20 01/07/20 01/07/20 14:14 16:56 16:56 WBC 15.0 H MCV 78.8 L Absolute Neuts (auto) 11.0 H Monocytes % 10.4 H Sodium 135 L Random Glucose 126 H Urine Protein 3+ H Urine Blood 3+ H Urine Nitrite Positive H Urine Bilirubin 2+ H Ur Leukocyte Esterase 3+ H Current Medications Generic Name Dose Route Start Last Admin Trade Name Freq PRN Reason Stop Dose Admin Sodium Chloride 1,000 mls @ 100 mls/hr 01/07/20 23:45 Normal Saline - IV ASDIR [facility] Ceftriaxone Sodium 1 gm/ 50 mls @ 100 mls/hr 01/08/20 10:00 Dextrose IVPB DAILY [facility] Protocol Insulin Aspart 0 units 01/08/20 07:00 Novolog Vial SQ ACHS [facility] Protocol Ketorolac Tromethamine 15 mg 01/07/20 23:38 Toradol Injection - IVPUSH 01/12/20 23:37 Q6H PRN PAIN LEVEL 7 - 10 Tamsulosin HCl 0.4 mg 01/08/20 08:30 Flomax - PO DAILY@0830 [facility] ASSESSMENT AND PLAN: 1. Pyelonephritis - Spiral CT scan of abdomen/pelvis shows possible left ureter stone and bilateral perinephric stranding. Will treat with IV Ceftriaxone 1 gm q 24 hours, IV NS, Flomax, get PT/INR, CXR, type and hold PRBC, strain his urine, keep him NPO, monitor hematocrit, consult Urology and refer to Nephrology for stone disease risk factor evaluation.Viral testing for COVID-19 ordered and patient placed on airborne, droplet and contact isolation. EKG pending. Will continue comprehensive care for all of patients comorbid conditions. 2. DM For now, we will hold the home diabetes drugs and implement sliding scale insulin regimen. Provide comprehensive diabetes care with patient teaching and counseling about the importance of adherence to prescribed diabetes regimen, euglycemia, eye care and foot care. 3. Hypertension Will restart suitable outpatient antihypertensive drugs when clinically appropriate. Subsequently, will revise regimen to ensure [id number] excellent BP control. Patient counseled on the injurious effects of uncontrolled hypertension. Nonpharmacologic measures to control hypertension like weight loss, salt restriction and exercise stressed. Importance of adherence to treatment regimen and attainment of normotension emphasized. 4. DVT prophylaxis - SCD until hematuria resolves. 5. Advance directives - Full code
[2020-01-07] MEDS ORDERED: KETOROLAC TROMETHAMINE 15 MG/ML VIAL IVPUSH PRN (23:38)
--- NOTE | 2020-01-08 00:03 | HP ---
CHIEF COMPLAINT: R flank pain and hematuria PCP: HISTORY OF PRESENT ILLNESS: This is a 54 year old male with PMHJ of DM and nephrolithiasis. He presented to the ER with complaints of R flank pain and hematuria that initially began 10 days ago, but has worsened over the past 1 day. Last night the pain escalated to 7/10, non-radiating, associated with hematuria. He endorses a fever of 101 at home last night, but no chills, AMS, SOB, chest pain, nausea, vomiting, or diarrhea. He saw Dr. Roberto on 12/28 and was diagnosed with a R sided "large" stone on US, and removal was planned in February. Prior to that, he had a R renal stone removed 2 years ago, and since then he gets a renal US every 6 months. ER course was notable for: (1) CT AP found mild perinephric stranding, bladder wall thickening (2) WBC 15k (3)UA 3+ proteinuria, 3+ blood, 3+ LE Recent Travel: denies PAST MEDICAL HISTORY: See HPI PAST SURGICAL HISTORY: See HPI Social History: Smoking: denies Alcohol: denies Drugs: denies Allergies No Known Allergies Allergy (Verified 01/07/20 15:12) HOME MEDICATIONS: Home Medications Medication Instructions Recorded Aspirin Coated [Ecotrin -] 81 mg PO DAILY 01/07/20 Enalapril Maleate [Vasotec] 5 mg PO BID 01/07/20 Glyburide/Metformin HCl 2 each PO BID 01/07/20 [Glyburide-Metformin 5-500 mg] Metoprolol Succinate [Toprol Xl -] 25 mg PO DAILY 01/07/20 Omeprazole 40 mg PO DAILY 01/07/20 Ranolazine [Ranexa -] 1,000 mg PO BID 01/07/20 Simvastatin [Zocor -] 40 mg PO HS 01/07/20 REVIEW OF SYSTEMS CONSTITUTIONAL: Absent: fever, chills, diaphoresis, generalized weakness, malaise, loss of appetite, weight change HEENT: Absent: rhinorrhea, nasal congestion, throat pain, throat swelling, difficulty swallowing, mouth swelling, ear pain, eye pain, visual changes CARDIOVASCULAR: Absent: chest pain, syncope, palpitations, irregular heart rate, lightheadedness, peripheral edema RESPIRATORY: Absent: cough, shortness of breath, dyspnea with exertion, orthopnea, wheezing, stridor, hemoptysis GASTROINTESTINAL: Absent: abdominal pain, abdominal distension, nausea, vomiting, diarrhea, constipation, melena, hematochezia GENITOURINARY: Absent: dysuria, frequency, urgency, hesitancy, hematuria, flank pain, genital pain MUSCULOSKELETAL: Absent: myalgia, arthralgia, joint swelling, back pain, neck pain SKIN: Absent: rash, itching, pallor HEMATOLOGIC/IMMUNOLOGIC: Absent: easy bleeding, easy bruising, lymphadenopathy, frequent infections ENDOCRINE: Absent: unexplained weight gain, unexplained weight loss, heat intolerance, cold intolerance NEUROLOGIC: Absent: headache, focal weakness or paresthesias, dizziness, unsteady gait, seizure, mental status changes, bladder or bowel incontinence PSYCHIATRIC: Absent: anxiety, depression, suicidal or homicidal ideation, hallucinations. PHYSICAL EXAMINATION Vital Signs - 24 hr 01/07/20 01/07/20 15:15 19:24 Temperature 99.2 F Pulse Rate 121 H Pulse Rate [ 115 H Left Radial] Respiratory 20 18 Rate Blood Pressure 126/75 Blood Pressure 113/72 [Right Arm] O2 Sat by Pulse 99 97 Oximetry (%) GENERAL: Awake, alert, and fully oriented, in no acute distress. HEAD: Normal with no signs of trauma. EYES: Pupils equal, round and reactive to light, extraocular movements intact, sclera anicteric, conjunctiva clear. No lid lag. EARS, NOSE, THROAT: Ears normal, nares patent, oropharynx clear without exudates. Moist mucous membranes. NECK: Normal range of motion, supple without lymphadenopathy, JVD, or masses. LUNGS: Breath sounds equal, clear to auscultation bilaterally. No wheezes, and no crackles. No accessory muscle use. HEART: Regular rate and rhythm, normal S1 and S2 without murmur, rub or gallop. ABDOMEN: Soft, nontender, not distended, mild R CVA tenderness MUSCULOSKELETAL: Normal range of motion at all joints. No bony deformities or tenderness. No CVA tenderness. UPPER EXTREMITIES: 2+ pulses, warm, well-perfused. No cyanosis. No clubbing. No peripheral edema. LOWER EXTREMITIES: 2+ pulses, warm, well-perfused. No calf tenderness. No peripheral edema. NEUROLOGICAL: Cranial nerves II-XII intact. Normal speech. Normal gait. PSYCHIATRIC: Cooperative. Good eye contact. Appropriate mood and affect. SKIN: Warm, dry, normal turgor, no rashes or lesions noted, normal capillary refill. Laboratory Results - last 24 hr 01/07/20 01/07/20 01/07/20 14:14 16:56 16:56 WBC 15.0 H RBC 5.41 Hgb 14.0 Hct 42.6 D MCV 78.8 L MCH 25.9 MCHC 32.8 RDW 14.9 Plt Count 181 MPV 10.0 Absolute Neuts (auto) 11.0 H Neutrophils % 73.2 Lymphocytes % 15.8 Monocytes % 10.4 H Eosinophils % 0.2 Basophils % 0.4 Nucleated RBC % 0 PT with INR 12.40 INR 1.05 Sodium Potassium Chloride Carbon Dioxide Anion Gap BUN Creatinine Est GFR (CKD-EPI)AfAm Est GFR (CKD-EPI)NonAf Random Glucose Calcium Total Bilirubin AST ALT Alkaline Phosphatase Total Protein Albumin Urine Color Red Urine Appearance Turbid Urine pH 5.0 Ur Specific Viola 1.021 Urine Protein 3+ H Urine Glucose (UA) Negative Urine Ketones Negative Urine Blood 3+ H Urine Nitrite Positive H Urine Bilirubin 2+ H Urine Urobilinogen 0.2 Ur Leukocyte Esterase 3+ H Urine WBC (Auto) 6058.1 Urine RBC (Auto) 67227.1 Urine Casts (Auto) 552.39 U Pathogenic Cast Auto Negative U Epithel Cells (Auto) 28.2 Urine Bacteria (Auto) 1989.8 01/07/20 16:56 WBC RBC Hgb Hct MCV MCH MCHC RDW Plt Count MPV Absolute Neuts (auto) Neutrophils % Lymphocytes % Monocytes % Eosinophils % Basophils % Nucleated RBC % PT with INR INR Sodium 135 L Potassium 4.4 Chloride 99 Carbon Dioxide 26 Anion Gap 10 BUN 17.5 Creatinine 1.2 Est GFR (CKD-EPI)AfAm 78.98 Est GFR (CKD-EPI)NonAf 68.14 Random Glucose 126 H Calcium 9.7 Total Bilirubin 0.8 AST 25 ALT 32 Alkaline Phosphatase 63 Total Protein 7.8 Albumin 4.3 Urine Color Urine Appearance Urine pH Ur Specific Viola Urine Protein Urine Glucose (UA) Urine Ketones Urine Blood Urine Nitrite Urine Bilirubin Urine Urobilinogen Ur Leukocyte Esterase Urine WBC (Auto) Urine RBC (Auto) Urine Casts (Auto) U Pathogenic Cast Auto U Epithel Cells (Auto) Urine Bacteria (Auto) ASSESSMENT/PLAN: 54 year old male with PMHJ of DM and nephrolithiasis. He presented to the ER with complaints of R flank pain and hematuria that initially began 10 days ago, admitted for pyelonephritis, nephrolithiasis. #Pyelonephritis/Nephrolithiasis - CTAP: mild perinephric stranding, bladder wall thickening without stones/obstruction, although pt reports US 1w ago was positive - Started on Tamsulosin 0.4mg daily - N/S @ 75 - Ketorolac 15mg Q6H PRN, will DC if Cr rises - Dr. Roberto aware, will assess pt in AM - Urinary stone analysis, Urine Ca, Nephro consult placed for workup for etiology of recurrence stones - UA with 3+ proteins, 3+ blood, and 3+ LE, started on [id number] daily - Urine Cx pending #Hx of HTN/HLD - Resume home Metoprolol, Lisinopril - Reusme home Simvastatin #Hx of DM - BGMs, ISS #FEN - N/S @ 100 - NPO for possible procedure in AM #Prophylaxis - SCDs, holding chemical AC for possible procedure in AM #Dispo - Will monitor in M/S and F/U with urology recs for procedural intervention vs passive stone facilitation ATTENDING PHYSICIAN STATEMENT I saw and evaluated the patient. I reviewed the resident's note and discussed the case with the resident. I agree with the resident's findings and plan as documented. SUBJECTIVE: OBJECTIVE: ASSESSMENT AND PLAN:
[2020-01-08] MEDS ORDERED: ENALAPRIL MALEATE 5 MG TABLET (FP) PO SCH (01:00)
[2020-01-08] MEDS: SODIUM CHLORIDE 1,000 ML IV SCH ×2 (02:24→17:30)
[2020-01-08] MEDS: ACETAMINOPHEN 325 MG TABLET (FP) PO PRN ×3 (02:24→17:44)
[2020-01-08] MEDS: metoPROLOL SUCCINATE 25 MG TAB.SR.24H (FP) PO SCH ×2 (02:24→09:47)
[2020-01-08] MEDS: INSULIN (NOVOLOG) ASPART 100 UNITS/ML 10ML VIAL SQ SCH ×4 (06:54→21:57)
[2020-01-08 08:09] LABS: INR 1.12 (0.83-1.09); PROTHROMBIN TIME (PATIENT) 13.2 SEC (9.7-13.0)
[2020-01-08 08:10] LABS: HEMOGLOBIN 13.1 GM/dL (11.7-16.9); MCH 26.4 pg (25.7-33.7); MCHC 33.5 g/dl (32.0-35.9); MEAN CELL VOLUME 78.9 fl (80-96); MEAN PLT VOLUME 9.9 fl (7.5-11.1); PLATELET COUNT 155 K/MM3 (134-434); RBC 4.94 M/mm3 (4.00-5.60); RDW 14.9 % (11.9-15.9); WHITE BLOOD COUNT 12.7 K/mm3 (4.0-10.0)
[2020-01-08 08:36] LABS: ALBUMIN 3.6 g/dl (3.4-5.0); BLOOD UREA NITROGEN 9.4 mg/dL (7-18); CALCIUM 8.8 mg/dL (8.5-10.1); CREATININE 1.2 mg/dL (0.55-1.3); MAGNESIUM 1.8 mg/dL (1.8-2.4); PHOSPHOROUS 3.2 mg/dL (2.5-4.9); POTASSIUM 4.7 mmol/L (3.5-5.1)
[2020-01-08 08:37] LABS: TOT PROT 7.1 g/dl (6.4-8.2)
[2020-01-08] MEDS ORDERED: DEXTROSE 5%-WATER - 50 ML IVPB ONE (09:21)
[2020-01-08] MEDS ORDERED: RANOLAZINE E.R. 500 MG TABLET (FP) ONE ×2 (09:21→21:07)
[2020-01-08] MEDS ORDERED: cefTRIAXone SODIUM 1 GM VIAL ONE (09:21)
[2020-01-08] MEDS: PANTOPRAZOLE 40 MG TABLET PO SCH (09:46)
[2020-01-08] MEDS: TAMSULOSIN HCL 0.4 MG CAP PO SCH (09:46)
[2020-01-08] MEDS: RANOLAZINE E.R. 1,000 MG TABLET (FP) PO SCH ×2 (09:46→21:56)
[2020-01-08] MEDS: ASPIRIN COATED 81 MG TABLET.EC PO SCH (09:46)
[2020-01-08] MEDS: CEFTRIAXONE 1 GM in DEXTROSE 5%-WATER - 50 ML IVPB SCH (09:47)
--- NOTE | 2020-01-08 10:14 | PN ---
Physical Exam: SUBJECTIVE: Patient seen and examined at bedside. he endorses significant improvement of his pain. Urinating without hematuria, or dysuria. Denies subjective fevers, chills, shortness of breath, chest pain, palpitations, abdominal pain, nausea, vomiting. OBJECTIVE: Vital Signs Period Temp Pulse Resp BP Sys/Manzo Pulse Ox Last 24 Hr 98.6 F-99.4 F 106-128 18-22 113-153/72-113 95-99 GENERAL: The patient is awake, alert, and fully oriented, in no acute distress. HEAD: Normocephalic, atraumatic. EYES: PERRL, extraocular movements intact, sclera anicteric, conjunctiva clear. ENT: Oropharynx clear, without erythema or exudates. Moist mucous membranes. NECK: Trachea midline, full range of motion. Supple without lymphadenopathy. LUNGS: Breath sounds equal, clear to auscultation bilaterally. No wheezes, no crackles. No accessory muscle use. HEART: Regular rate and rhythm. S1, S2 without murmur, rub or gallop. ABDOMEN: Soft, nondistended, nontender to light and deep palpation x4 quadrants. No rebound tenderness, no guarding. Normoactive bowel sounds x4 quadrants. Negative CVA tenderness bilaterally EXTREMITIES: 2+ radial, dorsalis pedis pulses bilaterally. Warm, well-perfused. No lower extremity edema bilaterally. NEUROLOGICAL: Cranial nerves II through XII grossly intact. Normal speech. No gross focal deficits. PSYCH: Normal mood, normal affect upon my encounter. SKIN: Warm, dry. Laboratory Results - last 24 hr 01/07/20 01/07/20 01/07/20 14:14 16:56 16:56 WBC 15.0 H RBC 5.41 Hgb 14.0 Hct 42.6 D MCV 78.8 L MCH 25.9 MCHC 32.8 RDW 14.9 Plt Count 181 MPV 10.0 Absolute Neuts (auto) 11.0 H Neutrophils % 73.2 Lymphocytes % 15.8 Monocytes % 10.4 H Eosinophils % 0.2 Basophils % 0.4 Nucleated RBC % 0 PT with INR 12.40 INR 1.05 Sodium Potassium Chloride Carbon Dioxide Anion Gap BUN Creatinine Est GFR (CKD-EPI)AfAm Est GFR (CKD-EPI)NonAf POC Glucometer Random Glucose Calcium Phosphorus Magnesium Total Bilirubin AST ALT Alkaline Phosphatase Total Protein Albumin Urine Color Red Urine Appearance Turbid Urine pH 5.0 Ur Specific Tasley 1.021 Urine Protein 3+ H Urine Glucose (UA) Negative Urine Ketones Negative Urine Blood 3+ H Urine Nitrite Positive H Urine Bilirubin 2+ H Urine Urobilinogen 0.2 Ur Leukocyte Esterase 3+ H Urine WBC (Auto) 6058.1 Urine RBC (Auto) 78351.1 Urine Casts (Auto) 552.39 U Pathogenic Cast Auto Negative U Epithel Cells (Auto) 28.2 Urine Bacteria (Auto) 1989.8 Blood Type Antibody Screen 01/07/20 01/08/20 01/08/20 16:56 06:30 06:30 WBC 12.7 H RBC 4.94 Hgb 13.1 Hct 39.0 MCV 78.9 L MCH 26.4 MCHC 33.5 RDW 14.9 Plt Count 155 MPV 9.9 Absolute Neuts (auto) Neutrophils % Lymphocytes % Monocytes % Eosinophils % Basophils % Nucleated RBC % PT with INR 13.20 H INR 1.12 H Sodium 135 L Potassium 4.4 Chloride 99 Carbon Dioxide 26 Anion Gap 10 BUN 17.5 Creatinine 1.2 Est GFR (CKD-EPI)AfAm 78.98 Est GFR (CKD-EPI)NonAf 68.14 POC Glucometer Random Glucose 126 H Calcium 9.7 Phosphorus Magnesium Total Bilirubin 0.8 AST 25 ALT 32 Alkaline Phosphatase 63 Total Protein 7.8 Albumin 4.3 Urine Color Urine Appearance Urine pH Ur Specific Tas[place] Urine Protein Urine Glucose (UA) Urine Ketones Urine Blood Urine Nitrite Urine Bilirubin Urine Urobilinogen Ur Leukocyte Esterase Urine WBC (Auto) Urine RBC (Auto) Urine Casts (Auto) U Pathogenic Cast Auto U Epithel Cells (Auto) Urine Bacteria (Auto) Blood Type Antibody Screen 01/08/20 01/08/20 01/08/20 06:30 06:30 06:48 WBC RBC Hgb Hct MCV MCH MCHC RDW Plt Count MPV Absolute Neuts (auto) Neutrophils % Lymphocytes % Monocytes % Eosinophils % Basophils % Nucleated RBC % PT with INR INR Sodium 136 Potassium 4.7 Chloride 100 Carbon Dioxide 28 Anion Gap 9 BUN 9.4 Creatinine 1.2 Est GFR (CKD-EPI)AfAm 78.98 Est GFR (CKD-EPI)NonAf 68.14 POC Glucometer 200 Random Glucose 195 H Calcium 8.8 Phosphorus 3.2 Magnesium 1.8 Total Bilirubin 1.0 AST 25 ALT 29 Alkaline Phosphatase 61 Total Protein 7.1 Albumin 3.6 Urine Color Urine Appearance Urine pH Ur Specific Tasley Urine Protein Urine Glucose (UA) Urine Ketones Urine Blood Urine Nitrite Urine Bilirubin Urine Urobilinogen Ur Leukocyte Esterase Urine WBC (Auto) Urine RBC (Auto) Urine Casts (Auto) U Pathogenic Cast Auto U Epithel Cells (Auto) Urine Bacteria (Auto) Blood Type A POSITIVE Antibody Screen Negative Active Medications Generic Name Dose Route Start Last Admin Trade Name Freq PRN Reason Stop Dose Admin Acetaminophen 650 mg 01/08/20 00:59 01/08/20 09:48 Tylenol - PO 650 mg Q6H PRN Administration Fever Or Pain Aspirin 81 mg 01/08/20 10:00 01/08/20 09:46 Ecotrin - PO 81 mg DAILY AGUILAR Administration Atorvastatin Calcium 20 mg 01/08/20 22:00 Lipitor - PO HS AGUILAR Sodium Chloride 1,000 mls @ 100 mls/hr 01/07/20 23:45 01/08/20 02:24 Normal Saline - IV 100 mls/hr ASDIR AGUILAR Administration Ceftriaxone Sodium 1 gm/ 50 mls @ 100 mls/hr 01/08/20 10:00 01/08/20 09:47 Dextrose IVPB 100 mls/hr DAILY AGUILAR Administration Protocol Insulin Aspart 0 units 01/08/20 07:00 01/08/20 06:54 Novolog Vial SQ 2 unit ACHS [facility] Administration Protocol Ketorolac Tromethamine 15 mg 01/07/20 23:38 Toradol Injection - IVPUSH 01/12/20 23:37 Q6H PRN PAIN LEVEL 7 - 10 Metoprolol Succinate 25 mg 01/08/20 00:55 01/08/20 09:47 Toprol Xl - PO 25 mg DAILY AGUILAR Administration Pantoprazole Sodium 40 mg 01/08/20 10:00 01/08/20 09:46 Protonix - PO 40 mg DAILY AGUILAR Administration Ranolazine 1,000 mg 01/08/20 10:00 01/08/20 09:46 Ranexa - PO 1,000 mg BID AGUILAR Administration Tamsulosin HCl 0.4 mg 01/08/20 08:30 01/08/20 09:46 Flomax - PO 0.4 mg DAILY@0830 [facility] Administration ASSESSMENT/PLAN: Patient is a 54 year old male with history of diabetes mellitus, nephrolithiasis admitted for acute complicated urinary tract infection. Acute complicated urinary tract infection -UA red, turbid with 3+ protein, 3+ blood, and 3+ LE, positive nitrites, 1989 bacteria, however 28 epithelial cells noted. -CT abdomen, pelvis reveals no nephrolithiasis, or acute pathology. -Ceftriaxone 1 gram IV daily (day #1) -Follow urine culture -Tamsulosin 0.4mg PO daily -Gentle hydration with IV normal saline at 75mL/ hour -Urology consult (Dr. Roberto) -Pain control with Acetaminophen, Toradol History of diabetes mellitus -HgbA1c -Holding home Glyburide, Metformin. -Insulin slidng scale ACHS -Fingerstick blood glucose monitoring ACHS History of hypertension -Continue home Metoprolol, Lisinopril History of hyperlipidemia -Continue home Simvastatin FEN -IV normal saline at 75mL/ hour -Follow BMP -NPO pending urology evaluation Prophylaxis -SCDs, holding chemical anticoagulation pending urology evaluation Disposition -Continue care in medical- surgical floor. Visit type - Emergency Visit Emergency Visit: Yes ED Registration Date: 01/07/20 Care time: The patient presented to the Emergency Department on the above date and was hospitalized for further evaluation of their emergent condition. - New Patient This patient is new to me today: Yes Date on this admission: 01/08/20 - Critical Care Critical Care patient: No - Discharge Referral Referred to [facility] Med P.C.: No ATTENDING PHYSICIAN STATEMENT I saw and evaluated the patient. I reviewed the resident's note and discussed the case with the resident. I agree with the resident's findings and plan as documented. SUBJECTIVE: OBJECTIVE: ASSESSMENT AND PLAN:
[2020-01-08] MEDS ORDERED: PT OWN MED DRAWER 7, Y5N ONE (10:45)
[2020-01-08] MEDS ORDERED: INSULIN (NOVOLOG) ASPART 100 UNITS/ML 10ML VIAL ONE (17:36)
--- NOTE | 2020-01-08 18:12 | PN ---
Teaching Attending Note Name of Resident: Aubrey Rivera ATTENDING PHYSICIAN STATEMENT I saw and evaluated the patient. I reviewed the resident's note and discussed the case with the resident. I agree with the resident's findings and plan as documented. SUBJECTIVE: OBJECTIVE: ASSESSMENT AND PLAN: Patient was seen and examined, chart reviewed: # Pyelonephritis - CT scan of abdomen/pelvis shows possible left ureter stone and bilateral perinephric stranding. - Contine with IV Ceftriaxone 1 gm q 24 hours, IV NS, Flomax Consulted Urology # DM II For now, we will hold the home diabetes drugs and implement sliding scale insulin regimen. # Hypertension Monitor on toprol # DVT prophylaxis - SCD until hematuria resolves. # Advance directives - Full code
[2020-01-08] MEDS: ATORVASTATIN CA 20 MG TABLET (FP) PO SCH (21:56)
[2020-01-09] MEDS: ACETAMINOPHEN 325 MG TABLET (FP) PO PRN ×2 (02:26→18:57)
[2020-01-09] MEDS: SODIUM CHLORIDE 1,000 ML IV SCH ×3 (02:27→17:30)
[2020-01-09] MEDS: INSULIN (NOVOLOG) ASPART 100 UNITS/ML 10ML VIAL SQ SCH ×4 (06:17→21:24)
[2020-01-09] MEDS ORDERED: cefTRIAXone SODIUM 1 GM VIAL ONE (08:59)
[2020-01-09] MEDS ORDERED: DEXTROSE 5%-WATER - 50 ML IVPB ONE (08:59)
[2020-01-09] MEDS ORDERED: RANOLAZINE E.R. 500 MG TABLET (FP) ONE ×2 (08:59→21:10)
--- NOTE | 2020-01-09 09:12 | CON.GU ---
Consult Consult Specialty:: urology Reason for Consultation:: hemorrhagic cystitits with history of urolithiasis and right flank pain - History of Present Illness Chief Complaint: uti/hematuria/right flank pain History of Present Illness: Patient is a 54 year old male with history of urolithiasis and NIDDM who had a 24 hour history of right flank pain with gross hematuria. The patient also reports dysuria with increased frequency and urgency. He currently is afebrile and tolerating a diet. His flank pain is improved with resolution of frequency/dysuria/hematuria. CT scan showed no evidence of hydronephrosis or urolithiasis. - History Source History Provided By: Patient - Alcohol/Substance Use Hx Alcohol Use: No - Smoking History Smoking history: Former smoker Have you smoked in the past 12 months: No If you are a former smoker, when did you quit?: 1994 Home Medications - Allergies Allergies/Adverse Reactions: Allergies Allergy/AdvReac Type Severity Reaction Status Date / Time No Known Allergies Allergy Verified 01/07/20 15:12 - Home Medications Home Medications: Ambulatory Orders Aspirin Coated [Ecotrin -] 81 mg PO DAILY 01/07/20 Enalapril Maleate [Vasotec] 5 mg PO BID 01/07/20 Glyburide/Metformin HCl [Glyburide-Metformin 5-500 mg] 2 each PO BID 01/07/20 Metoprolol Succinate [Toprol Xl -] 25 mg PO DAILY 01/07/20 Omeprazole 40 mg PO DAILY 01/07/20 Ranolazine [Ranexa -] 1,000 mg PO BID 01/07/20 Simvastatin [Zocor -] 40 mg PO HS 01/07/20 Physical Exam- Vital Signs: Vital Signs Temperature 98.6 F 01/09/20 06:00 Pulse Rate 87 01/09/20 06:00 Respiratory Rate 18 01/09/20 06:00 Blood Pressure 147/84 01/09/20 06:00 O2 Sat by Pulse Oximetry (%) 97 01/09/20 06:00 Constitutional: Yes: Well Nourished, No Distress, Calm Eyes: Yes: WNL, Conjunctiva Clear, EOM Intact HENT: Yes: WNL, Atraumatic, Normocephalic Neck: Yes: WNL, Supple, Trachea Midline Cardiovascular: Yes: WNL, Regular Rate and Rhythm Respiratory: Yes: WNL, Regular, CTA Bilaterally Gastrointestinal: Yes: WNL, Normal Bowel Sounds, Soft Renal/: Yes: WNL Kidneys: Yes: WNL Pelvis: Yes: WNL Testicles: Yes: WNL Scrotum: Yes: WNL Penis: Yes: WNL Prostate Exam: Yes: Deferred Extremities: Yes: WNL Edema: No Integumentary: Yes: WNL Neurological: Yes: Alert, Oriented ...Motor Strength: WNL Psychiatric: Yes: WNL, Alert, Oriented Labs: CBC, BMP 01/08/20 06:30 01/08/20 06:30 Imaging - Results Cat Scan: Report Reviewed Assessment/Plan impression uti renal colic plan continue rocephin/flomax] follow urine culture will follow-up as outpatient
--- NOTE | 2020-01-09 09:23 | PN ---
Teaching Attending Note Name of Resident: Esperanza Gutierrez ATTENDING PHYSICIAN STATEMENT I saw and evaluated the patient. I reviewed the resident's note and discussed the case with the resident. I agree with the resident's findings and plan as documented. SUBJECTIVE: Patient reports improvement today. One fever overnight with diaphoresis (10 0.4) noted. Otherwise overnight events unremarkable. Patient originally with polyuria and dysuria reportedly improved on today's exam. No abd pain, no pt history of prostate pathology or family history of prostate abnormalities. OBJECTIVE: Vital Signs Temperature 98.6 F 01/09/20 06:00 Pulse Rate 87 01/09/20 06:00 Respiratory Rate 18 01/09/20 06:00 Blood Pressure 147/84 01/09/20 06:00 O2 Sat by Pulse Oximetry (%) 97 01/09/20 06:00 PE: Gen: NAD, awake, alert and oriented x3 laying in bed HEENT: NC/AT, EOMI, TIKI, sclera anicteric, MMM Neck: No JVD LUNG: CTA b/l without wheezes or rales CARD: RRR no murmurs appreciated ABD: Soft, NT/ND, normoactive bs, no guarding, no suprapubic tenderness EXT: No edema, Pulses 2+ distally CBC, BMP 01/08/20 06:30 01/08/20 06:30 Laboratory Tests 01/08/20 09:00 Hemoglobin A1c % 7.8 H Active Medications Acetaminophen (Tylenol -) 650 mg PO Q6H PRN PRN Reason: Fever Or Pain Last Admin: 01/09/20 02:26 Dose: 650 mg Documented by: Aspirin (Ecotrin -) 81 mg PO DAILY [facility] Last Admin: 01/08/20 09:46 Dose: 81 mg Documented by: Atorvastatin Calcium (Lipitor -) 20 mg PO HS [facility] Last Admin: 01/08/20 21:56 Dose: 20 mg Documented by: Sodium Chloride (Normal Saline -) 1,000 mls @ 100 mls/hr IV ASDIR AGUILAR Last Admin: 01/09/20 02:27 Dose: 100 mls/hr Documented by: Ceftriaxone Sodium 1 gm/ (Dextrose) 50 mls @ 100 mls/hr IVPB DAILY AGUILAR; Protocol Last Admin: 01/08/20 09:47 Dose: 100 mls/hr Documented by: Insulin Aspart (Novolog Vial) 0 units SQ ACHS [facility]; Protocol Last Admin: 01/09/20 06:17 Dose: 2 unit Documented by: Ketorolac Tromethamine (Toradol Injection -) 15 mg IVPUSH Q6H PRN PRN Reason: PAIN LEVEL 7 - 10 Stop: 01/12/20 23:37 Metoprolol Succinate (Toprol Xl -) 25 mg PO DAILY [facility] Last Admin: 01/08/20 09:47 Dose: 25 mg Documented by: Pantoprazole Sodium (Protonix -) 40 mg PO DAILY [facility] Last Admin: 01/08/20 09:46 Dose: 40 mg Documented by: Ranolazine (Ranexa -) 1,000 mg PO BID [facility] Last Admin: 01/08/20 21:56 Dose: 1,000 mg Documented by: Tamsulosin HCl (Flomax -) 0.4 mg PO DAILY@0830 [facility] Last Admin: 01/08/20 09:46 Dose: 0.4 mg Documented by: Microbiology 01/07/20 14:14 Urine - Urine Clean Catch Urine Culture - Preliminary Lactose Fermenting Neg Bacilli ASSESSMENT AND PLAN: Acute pyelonephritis (improving) History of HTN History of T2DM --Rocephin day 3 to continue; will likely need 10 days of ABX --Awaiting culture sensitivities --Fever trend decreasing; monitor for recurrent fevers --Calcification noted on CT A/P and will need to clarify with radiology about no involvement of neck of bladder or prostate --Continue gentle IVF hydration given ongoing fevers --Flomax to continue --Continue home medications: ASA Toprol XL Ranexa --ISS for diabetic coverage; holding PO glycemic control inpatient FEN: Fluids as above Electrolyte abnormalities: None Nutrition: Diabetic PPX: DVT - SCDs, EA GI - Continue home Protonix Dispo: continue M/S Víctor Merlos DO - IM
[2020-01-09] MEDS: ASPIRIN COATED 81 MG TABLET.EC PO SCH (09:47)
[2020-01-09] MEDS: PANTOPRAZOLE 40 MG TABLET PO SCH (09:47)
[2020-01-09] MEDS: TAMSULOSIN HCL 0.4 MG CAP PO SCH (09:48)
[2020-01-09] MEDS: CEFTRIAXONE 1 GM in DEXTROSE 5%-WATER - 50 ML IVPB SCH (09:48)
[2020-01-09] MEDS: RANOLAZINE E.R. 1,000 MG TABLET (FP) PO SCH ×2 (09:48→21:21)
[2020-01-09] MEDS: metoPROLOL SUCCINATE 25 MG TAB.SR.24H (FP) PO SCH (09:48)
[2020-01-09 10:34] LABS: HEMATOCRIT 34.8 % (35.4-49); HEMOGLOBIN 11.4 GM/dL (11.7-16.9); MCH 25.8 pg (25.7-33.7); MCHC 32.9 g/dl (32.0-35.9); MEAN CELL VOLUME 78.4 fl (80-96); MEAN PLT VOLUME 9.7 fl (7.5-11.1); PLATELET COUNT 149 K/MM3 (134-434); RBC 4.44 M/mm3 (4.00-5.60); RDW 15.1 % (11.9-15.9); WHITE BLOOD COUNT 10.4 K/mm3 (4.0-10.0)
[2020-01-09 11:04] LABS: BLOOD UREA NITROGEN 10.7 mg/dL (7-18); CALCIUM 8.5 mg/dL (8.5-10.1); POTASSIUM 4.6 mmol/L (3.5-5.1)
[2020-01-09 11:05] LABS: CREATININE 0.9 mg/dL (0.55-1.3)
[2020-01-09] MEDS ORDERED: INSULIN (NOVOLOG) ASPART 100 UNITS/ML 10ML VIAL ONE ×3 (12:29→21:09)
--- NOTE | 2020-01-09 17:03 | CONSULT ---
Consult Consult Specialty:: Nephrology Reason for Consultation:: nephrolithiasis - History of Present Illness Chief Complaint: flank pain History of Present Illness: Pt is a 54 year old male with pmhx of dm and nephrolithiasis who presents to the ER with right flank pain. He also complains of a few episodes of hematuria. He does have have history of nephrolithiasis. He had fever and chills at home as well. He thinks he may have passed a stone in the ER. He says that he feels much better. He denies chest pain or shortness of breath. - History Source History Provided By: Patient - Past Medical History Renal/: Yes: Renal Calculi Endocrine: Yes: Diabetes Mellitus - Alcohol/Substance Use Hx Alcohol Use: No - Smoking History Smoking history: Former smoker Have you smoked in the past 12 months: No If you are a former smoker, when did you quit?: 1994 Home Medications - Allergies Allergies/Adverse Reactions: Allergies Allergy/AdvReac Type Severity Reaction Status Date / Time No Known Allergies Allergy Verified 01/07/20 15:12 - Home Medications Home Medications: Ambulatory Orders Aspirin Coated [Ecotrin -] 81 mg PO DAILY 01/07/20 Enalapril Maleate [Vasotec] 5 mg PO BID 01/07/20 Glyburide/Metformin HCl [Glyburide-Metformin 5-500 mg] 2 each PO BID 01/07/20 Metoprolol Succinate [Toprol Xl -] 25 mg PO DAILY 01/07/20 Omeprazole 40 mg PO DAILY 01/07/20 Ranolazine [Ranexa -] 1,000 mg PO BID 01/07/20 Simvastatin [Zocor -] 40 mg PO HS 01/07/20 Family Medical History Family History: Denies Review of Systems - Review of Systems Constitutional: reports: No Symptoms Eyes: reports: No Symptoms HENT: reports: No Symptoms Neck: reports: No Symptoms Cardiovascular: reports: No Symptoms Respiratory: reports: No Symptoms Gastrointestinal: reports: No Symptoms Genitourinary: reports: Burning, Hematuria Musculoskeletal: reports: No Symptoms Integumentary: reports: No Symptoms Neurological: reports: No Symptoms Endocrine: reports: No Symptoms Hematology/Lymphatic: reports: No Symptoms Psychiatric: reports: No Symptoms Physical Exam Vital Signs: Vital Signs Temperature 98.8 F 01/09/20 14:00 Pulse Rate 81 01/09/20 14:00 Respiratory Rate 20 08/24/20 14:00 Blood Pressure 137/89 01/09/20 14:00 O2 Sat by Pulse Oximetry (%) 100 01/09/20 14:00 Constitutional: Yes: Calm Eyes: Yes: Conjunctiva Clear HENT: Yes: Atraumatic Neck: Yes: Supple Cardiovascular: Yes: S1, S2 Respiratory: Yes: CTA Bilaterally Gastrointestinal: Yes: Soft Renal/: Yes: WNL Musculoskeletal: Yes: WNL Extremities: Yes: WNL Edema: No Neurological: Yes: Oriented Psychiatric: Yes: Oriented Labs: CBC, BMP 01/09/20 08:02 01/09/20 08:02 Imaging - Results Cat Scan: Report Reviewed Assessment/Plan Current Medications Generic Name Dose Route Start Last Admin Trade Name Freq PRN Reason Stop Dose Admin Acetaminophen 650 mg 01/08/20 00:59 01/09/20 02:26 Tylenol - PO 650 mg Q6H PRN Administration Fever Or Pain Aspirin 81 mg 01/08/20 10:00 01/09/20 09:47 Ecotrin - PO 81 mg DAILY AGUILAR Administration Atorvastatin Calcium 20 mg 01/08/20 22:00 01/08/20 21:56 Lipitor - PO 20 mg HS AGUILAR Administration Sodium Chloride 1,000 mls @ 100 mls/hr 01/07/20 23:45 01/09/20 09:47 Normal Saline - IV 100 mls/hr ASDIR AGUILAR Administration Ceftriaxone Sodium 1 gm/ 50 mls @ 100 mls/hr 01/08/20 10:00 01/09/20 09:48 Dextrose IVPB 100 mls/hr DAILY AGUILAR Administration Protocol Insulin Aspart 0 units 01/08/20 07:00 01/09/20 16:04 Novolog Vial SQ 6 unit ACHS AG[facility]ILAR Administration Protocol Ketorolac Tromethamine 15 mg 01/07/20 23:38 Toradol Injection - IVPUSH 01/12/20 23:37 Q6H PRN PAIN LEVEL 7 - 10 Metoprolol Succinate 25 mg 01/08/20 00:55 01/09/20 09:48 Toprol Xl - PO 25 mg DAILY AGUILAR Administration Pantoprazole Sodium 40 mg 01/08/20 10:00 01/09/20 09:47 Protonix - PO 40 mg DAILY AGUILAR Administration Ranolazine 1,000 mg 01/08/20 10:00 01/09/20 09:48 Ranexa - PO 1,000 mg BID AGUILAR Administration Tamsulosin HCl 0.4 mg 01/08/20 08:30 01/09/20 09:48 Flomax - PO 0.4 mg DAILY@0830 AG[facility] Administration Laboratory Tests 01/07/20 01/09/20 14:14 08:02 Creatinine 0.9 Urine Protein 3+ H Urine Blood 3+ H Urine Nitrite Positive H Urine Bilirubin 2+ H Impression 1. UTI 2. nephrolithiasus 3. hematuria 4. dm 5. flank pain Plan - renal function stable - outpt stone workup - can decrease fluids - ct neg for stone - urology follow up - repeat ua
--- NOTE | 2020-01-09 19:15 | PN ---
Physical Exam: SUBJECTIVE: Patient seen and examined at bedside. As per nursing, T 102.8 last night, gave tylenol, stable. Patient reports significant improvement of his pain. Denies fevers, chills, dysuria, hematuria shortness of breath, chest pain, palpitations, abdominal pain, nausea, vomiting. OBJECTIVE: Vital Signs Period Temp Pulse Resp BP Sys/Manzo Pulse Ox Last 24 Hr 98.6 F-100.8 F 81-101 18-20 118-147/68-89 95-100 GENERAL: The patient is awake, alert, and fully oriented, in no acute distress. HEAD: Normocephalic, atraumatic. EYES: PERRL, extraocular movements intact, sclera anicteric, conjunctiva clear. ENT: Oropharynx clear, without erythema or exudates. Moist mucous membranes. NECK: Trachea midline, full range of motion. Supple without lymphadenopathy. LUNGS: Breath sounds equal, clear to auscultation bilaterally. No wheezes, no crackles. No accessory muscle use. HEART: Regular rate and rhythm. S1, S2 without murmur, rub or gallop. ABDOMEN: Soft, nondistended, nontender to light and deep palpation x4 quadrants. No rebound tenderness, no guarding. Normoactive bowel sounds x4 quadrants. Negative CVA tenderness bilaterally EXTREMITIES: 2+ radial, dorsalis pedis pulses bilaterally. Warm, well-perfused. No lower extremity edema bilaterally. NEUROLOGICAL: Cranial nerves II through XII grossly intact. Normal speech. No gross focal deficits. PSYCH: Normal mood, normal affect upon my encounter. SKIN: Warm, dry. Laboratory Results - last 24 hr 01/07/20 01/08/20 01/09/20 21:30 21:55 06:17 WBC RBC Hgb Hct MCV MCH MCHC RDW Plt Count MPV Sodium Potassium Chloride Carbon Dioxide Anion Gap BUN Creatinine Est GFR (CKD-EPI)AfAm Est GFR (CKD-EPI)NonAf POC Glucometer 247 196 Random Glucose Calcium COVID-19 (JESSICA) Not detected 01/09/20 01/09/20 01/09/20 08:02 08:02 12:08 WBC 10.4 H RBC 4.44 Hgb 11.4 L Hct 34.8 L MCV 78.4 L MCH 25.8 MCHC 32.9 RDW 15.1 Plt Count 149 MPV 9.7 Sodium 136 Potassium 4.6 Chloride 101 Carbon Dioxide 25 Anion Gap 10 BUN 10.7 Creatinine 0.9 Est GFR (CKD-EPI)AfAm 111.83 Est GFR (CKD-EPI)NonAf 96.49 POC Glucometer 279 Random Glucose 203 H Calcium 8.5 COVID-19 (JESSICA) 01/09/20 16:01 WBC RBC Hgb Hct MCV MCH MCHC RDW Plt Count MPV Sodium Potassium Chloride Carbon Dioxide Anion Gap BUN Creatinine Est GFR (CKD-EPI)AfAm Est GFR (CKD-EPI)NonAf POC Glucometer 269 Random Glucose Calcium COVID-19 (JESSICA) Active Medications Generic Name Dose Route Start Last Admin Trade Name Freq PRN Reason Stop Dose Admin Acetaminophen 650 mg 01/08/20 00:59 01/09/20 18:57 Tylenol - PO 650 mg Q6H PRN Administration Fever Or Pain Aspirin 81 mg 01/08/20 10:00 01/09/20 09:47 Ecotrin - PO 81 mg DAILY AGUILAR Administration Atorvastatin Calcium 20 mg 01/08/20 22:00 01/08/20 21:56 Lipitor - PO 20 mg HS AGUILAR Administration Ceftriaxone Sodium 1 gm/ 50 mls @ 100 mls/hr 01/08/20 10:00 01/09/20 09:48 Dextrose IVPB 100 mls/hr DAILY AGUILAR Administration Protocol Sodium Chloride 1,000 mls @ 65 mls/hr 01/09/20 17:05 01/09/20 17:30 Normal Saline - IV 65 mls/hr ASDIR AGUILAR Administration Insulin Aspart 0 units 01/08/20 07:00 01/09/20 16:04 Novolog Vial SQ 6 unit ACHS AGUILAR Administration Protocol Metoprolol Succinate 25 mg 01/08/20 00:55 01/09/20 09:48 Toprol Xl - PO 25 mg DAILY AGUILAR Administration Pantoprazole Sodium 40 mg 01/08/20 10:00 01/09/20 09:47 Protonix - PO 40 mg DAILY AGUILAR Administration Ranolazine 1,000 mg 01/08/20 10:00 01/09/20 09:48 Ranexa - PO 1,000 mg BID AGUILAR Administration Tamsulosin HCl 0.4 mg 01/08/20 08:30 01/09/20 09:48 Flomax - PO 0.4 mg DAILY@0830 [facility] Administration ASSESSMENT/PLAN: Harpal Beltran is a 54 year old male with a PMH diabetes mellitus, nephrolithiasis, presented with R flank pain and hematuria for 10 days, admitted for acute complicated urinary tract infection. Sepsis 2/2 Acute complicated urinary tract infection - UA red, turbid with 3+ protein, 3+ blood, and 3+ LE, positive nitrites, [address] - CT abdomen, pelvis reveals no nephrolithiasis, or acute pathology. - Continue Ceftriaxone 1 gram IV D#3 - Pending urine culture - Continue Tamsulosin 0.4mg PO daily - Continue Gentle hydration with IV normal saline at 75mL/ hour - Urology consult (Dr. Roberto) - Nephro consulted, rec: outpt stone workup - Pain control with Acetaminophen, Toradol History of diabetes mellitus - HgbA1c - Holding home meds Glyburide, Metformin. - ISS ACHS + BGM History of hypertension - Continue Metoprolol, Lisinopril, ASA History of hyperlipidemia - Continue Simvastatin FEN - IV normal saline at 75mL/ hour - Continue to monitor electrolytes - Diabetic diet DVT Prophylaxis -SCDs, holding chemical anticoagulation pending urology evaluation Disposition -Continue to monitor in [place] Visit type - Emergency Visit Emergency Visit: Yes ED Registration Date: 01/07/20 Care time: The patient presented to the Emergency Department on the above date and was hospitalized for further evaluation of their emergent condition. - New Patient This patient is new to me today: Yes Date on this admission: 01/15/20 - Critical Care Critical Care patient: No - Discharge Referral Referred to [facility] Med P.C.: No ATTENDING PHYSICIAN STATEMENT I saw and evaluated the patient. I reviewed the resident's note and discussed the case with the resident. I agree with the resident's findings and plan as documented. SUBJECTIVE: OBJECTIVE: ASSESSMENT AND PLAN:
[2020-01-09 19:50] LABS: EPI CELLS 9 /uL (0-25.1); HYALINE CASTS 0 /uL (0-3.1); URINE APPEARANCE CLEAR; URINE BACTERIA 15 /uL (0-1359); URINE BILIRUBIN NEGATIVE (NEGATIVE); URINE COLOR YELLOW; URINE GLUCOSE (UA) 3+ (NEGATIVE); URINE KETONE 1+ (NEGATIVE); URINE LEUK ESTERASE NEGATIVE (NEGATIVE); URINE NITRITE NEGATIVE (NEGATIVE); URINE PROTEIN 1+ (NEGATIVE); URINE RBC 5 /uL (0-23.9)
[2020-01-09 21:20] LABS: URINE WBC 70.1 /uL (0-25.8)
[2020-01-09] MEDS: ATORVASTATIN CA 20 MG TABLET (FP) PO SCH (21:21)
--- NOTE | 2020-01-09 21:47 | EKG ---
Test Reason : Blood Pressure : / mmHG Vent. Rate : 114 BPM Atrial Rate : 114 BPM P-R Int : 160 ms QRS Dur : 092 ms QT Int : 324 ms P-R-T Axes : 058 022 039 degrees QTc Int : 446 ms SINUS TACHYCARDIA OTHERWISE NORMAL ECG WHEN COMPARED WITH ECG OF 25-SEP-2017 01:57, NO SIGNIFICANT CHANGE WAS FOUND Confirmed by DENISSE SAWYER MD ([id number]) on 01/09/2020 9:47:24 PM Referred By: Confirmed By:DENISSE SAWYER MD
[2020-01-10] MEDS: INSULIN (NOVOLOG) ASPART 100 UNITS/ML 10ML VIAL SQ SCH ×4 (06:15→22:20)
[2020-01-10 08:19] LABS: BASO % 0.2 % (0-2.0); EOS % 1.2 % (0-4.5); HEMATOCRIT 33.9 % (35.4-49); HEMOGLOBIN 11.3 GM/dL (11.7-16.9); MCHC 33.3 g/dl (32.0-35.9); MEAN CELL VOLUME 78.1 fl (80-96); MEAN PLT VOLUME 9.5 fl (7.5-11.1); MONO % 11.5 % (3.8-10.2); NEUT % 69.1 % (42.8-82.8); PLATELET COUNT 167 K/MM3 (134-434); RBC 4.34 M/mm3 (4.00-5.60); RDW 14.5 % (11.9-15.9); WHITE BLOOD COUNT 6.6 K/mm3 (4.0-10.0)
[2020-01-10 08:49] LABS: BILIRUBIN,TOTAL 0.5 mg/dL (0.2-1); BLOOD UREA NITROGEN 13.5 mg/dL (7-18); CALCIUM 8.5 mg/dL (8.5-10.1); MAGNESIUM 1.8 mg/dL (1.8-2.4); PHOSPHOROUS 2.4 mg/dL (2.5-4.9); POTASSIUM 4.8 mmol/L (3.5-5.1); TOT PROT 6.2 g/dl (6.4-8.2)
[2020-01-10] MEDS ORDERED: RANOLAZINE E.R. 500 MG TABLET (FP) ONE ×2 (09:16→22:03)
[2020-01-10] MEDS ORDERED: DEXTROSE 5%-WATER - 50 ML IVPB ONE (09:17)
[2020-01-10] MEDS ORDERED: cefTRIAXone SODIUM 1 GM VIAL ONE (09:17)
[2020-01-10] MEDS: CEFTRIAXONE 1 GM in DEXTROSE 5%-WATER - 50 ML IVPB SCH (09:45)
[2020-01-10] MEDS: PANTOPRAZOLE 40 MG TABLET PO SCH (09:46)
[2020-01-10] MEDS: TAMSULOSIN HCL 0.4 MG CAP PO SCH (09:46)
[2020-01-10] MEDS: ASPIRIN COATED 81 MG TABLET.EC PO SCH (09:46)
[2020-01-10] MEDS: RANOLAZINE E.R. 1,000 MG TABLET (FP) PO SCH ×2 (09:46→22:21)
[2020-01-10] MEDS: metoPROLOL SUCCINATE 25 MG TAB.SR.24H (FP) PO SCH (09:46)
[2020-01-10] MEDS: SODIUM CHLORIDE 1,000 ML IV SCH ×2 (09:49→22:31)
[2020-01-10] MEDS ORDERED: NAPH,MB-DB/K PH,MBDB POWDER PACKET PO ONE (11:15)
--- NOTE | 2020-01-10 13:15 | PN ---
Progress Note, Physician History of Present Illness: Pt seen and examined at bedside. He is awake and alert. He had fever last night. - Current Medication List Current Medications: Active Medications Acetaminophen (Tylenol -) 650 mg PO Q6H PRN PRN Reason: Fever Or Pain Last Admin: 01/09/20 18:57 Dose: 650 mg Documented by: Aspirin (Ecotrin -) 81 mg PO DAILY [facility] Last Admin: 01/10/20 09:46 Dose: 81 mg Documented by: Atorvastatin Calcium (Lipitor -) 20 mg PO HS [facility] Last Admin: 01/09/20 21:21 Dose: 20 mg Documented by: Ceftriaxone Sodium 1 gm/ (Dextrose) 50 mls @ 100 mls/hr IVPB DAILY [facility]; Protocol Last Admin: 01/10/20 09:45 Dose: 100 mls/hr Documented by: Sodium Chloride (Normal Saline -) 1,000 mls @ 65 mls/hr IV ASDIR [facility] Last Admin: 01/10/20 09:49 Dose: 65 mls/hr Documented by: Insulin Aspart (Novolog Vial) 0 units SQ [facility]; Protocol Last Admin: 01/10/20 11:39 Dose: 6 unit Documented by: Insulin Detemir (Levemir Vial) 8 units SQ [facility] Metoprolol Succinate (Toprol Xl -) 25 mg PO DAILY [facility] Last Admin: 01/10/20 09:46 Dose: 25 mg Documented by: Pantoprazole Sodium (Protonix -) 40 mg PO DAILY [facility] Last Admin: 01/10/20 09:46 Dose: 40 mg Documented by: Ranolazine (Ranexa -) 1,000 mg PO BID [facility] Last Admin: 01/10/20 09:46 Dose: 1,000 mg Documented by: Tamsulosin HCl (Flomax -) 0.4 mg PO DAILY@0830 [facility] Last Admin: 01/10/20 09:46 Dose: 0.4 mg Documented by: - Objective Vital Signs: Vital Signs Temperature 98.6 F 01/10/20 10:00 Pulse Rate 84 01/10/20 10:00 Respiratory Rate 20 01/10/20 10:00 Blood Pressure 149/85 01/10/20 10:00 O2 Sat by Pulse Oximetry (%) 96 01/10/20 10:00 Constitutional: Yes: Calm Eyes: Yes: Conjunctiva Clear HENT: Yes: Atraumatic Neck: Yes: Supple Cardiovascular: Yes: S1, S2 Respiratory: Yes: CTA Bilaterally Gastrointestinal: Yes: Normal Bowel Sounds, Soft Genitourinary: Yes: WNL Musculoskeletal: Yes: WNL Edema: No Neurological: Yes: Oriented Psychiatric: Yes: Oriented Labs: CBC, BMP 01/10/20 07:10 01/10/20 07:10 INR, PTT INR 1.12 (0.83-1.09) H 01/08/20 06:30 Problem List - Problems (1) Nephrolithiasis Code(s): N20.0 - CALCULUS OF KIDNEY Assessment/Plan Current Medications Generic Name Dose Route Start Last Admin Trade Name Freq PRN Reason Stop Dose Admin Acetaminophen 650 mg 01/08/20 00:59 01/09/20 18:57 Tylenol - PO 650 mg Q6H PRN Administration Fever Or Pain Aspirin 81 mg 01/08/20 10:00 01/10/20 09:46 Ecotrin - PO 81 mg DAILY [facility] Administration Atorvastatin Calcium 20 mg 01/08/20 22:00 01/09/20 21:21 Lipitor - PO 20 mg HS [facility] Administration Ceftriaxone Sodium 1 gm/ 50 mls @ 100 mls/hr 01/08/20 10:00 01/10/20 09:45 Dextrose IVPB 100 mls/hr DAILY [facility] Administration Protocol Sodium Chloride 1,000 mls @ 65 mls/hr 01/09/20 17:05 01/10/20 09:49 Normal Saline - IV 65 mls/hr ASDIR [facility] Administration Insulin Aspart 0 units 01/08/20 07:00 01/10/20 11:39 Novolog Vial SQ 6 unit ACHS [facility] Administration Protocol Insulin Detemir 8 units 01/10/20 22:00 Levemir Vial SQ HS [facility] Metoprolol Succinate 25 mg 01/08/20 00:55 01/10/20 09:46 Toprol Xl - PO 25 mg DAILY [facility] Administration Pantoprazole Sodium 40 mg 01/08/20 10:00 01/10/20 09:46 Protonix - PO 40 mg DAILY [facility] Administration Ranolazine 1,000 mg 01/08/20 10:00 01/10/20 09:46 Ranexa - PO 1,000 mg BID [facility] Administration Tamsulosin HCl 0.4 mg 01/08/20 08:30 01/10/20 09:46 Flomax - PO 0.4 mg DAILY@0830 [facility] Administration Impression 1. UTI 2. nephrolithiasus 3. hematuria 4. dm 5. flank pain Plan - renal function is stable - outpt stone workup - can cont fluids - monitor for fever - abx per medical team - urology follow up - repeat ua reviewed
--- NOTE | 2020-01-10 15:09 | PN ---
Physical Exam: SUBJECTIVE: Patient seen and examined at bedside. No acute events overnigh, Able to urinate, no hematuria. Denies any active fever, chills, abdominal pain, dysuria, flank pain. OBJECTIVE: Vital Signs Period Temp Pulse Resp BP Sys/Manzo Pulse Ox Last 24 Hr 98.1 F-100.8 F 76-99 20-20 138-149/77-86 96-98 GENERAL: The patient is awake, alert, and fully oriented, in no acute distress. HEAD: Normocephalic, atraumatic. EYES: PERRL, extraocular movements intact, sclera anicteric, conjunctiva clear. ENT: Oropharynx clear, without erythema or exudates. Moist mucous membranes. NECK: Trachea midline, full range of motion. Supple without lymphadenopathy. LUNGS: Breath sounds equal, clear to auscultation bilaterally. No wheezes, no crackles. No accessory muscle use. HEART: Regular rate and rhythm. S1, S2 without murmur, rub or gallop. ABDOMEN: Soft, nondistended, TTP of suprapubic region. No rebound tenderness, no guarding. Normoactive bowel sounds x4 quadrants. Negative CVA tenderness bilaterally EXTREMITIES: 2+ radial, dorsalis pedis pulses bilaterally. Warm, well-perfused. No lower extremity edema bilaterally. NEUROLOGICAL: Cranial nerves II through XII grossly intact. Normal speech. No gross focal deficits. PSYCH: Normal mood, normal affect upon my encounter. SKIN: Warm, dry. Laboratory Results - last 24 hr 01/09/20 01/09/20 01/09/20 16:01 19:15 21:23 WBC RBC Hgb Hct MCV MCH MCHC RDW Plt Count MPV Absolute Neuts (auto) Neutrophils % Lymphocytes % Monocytes % Eosinophils % Basophils % Nucleated RBC % Sodium Potassium Chloride Carbon Dioxide Anion Gap BUN Creatinine Est GFR (CKD-EPI)AfAm Est GFR (CKD-EPI)NonAf POC Glucometer 269 268 Random Glucose Calcium Phosphorus Magnesium Total Bilirubin AST ALT Alkaline Phosphatase Total Protein Albumin Urine Color Yellow Urine Appearance Clear Urine pH 6.0 Ur Specific [place] 1.025 Urine Protein 1+ H Urine Glucose (UA) 3+ H Urine Ketones 1+ H Urine Blood Negative Urine Nitrite Negative Urine Bilirubin Negative Urine Urobilinogen 1.0 Ur Leukocyte Esterase Negative Urine WBC (Auto) 70.1 Urine RBC (Auto) 5 Urine Casts (Auto) 0 U Epithel Cells (Auto) 9 Urine Bacteria (Auto) 15 01/10/20 01/10/20 01/10/20 05:34 07:10 07:10 WBC 6.6 RBC 4.34 Hgb 11.3 L Hct 33.9 L MCV 78.1 L MCH 26.0 MCHC 33.3 RDW 14.5 Plt Count 167 MPV 9.5 Absolute Neuts (auto) 4.5 Neutrophils % 69.1 Lymphocytes % 18.0 Monocytes % 11.5 H Eosinophils % 1.2 D Basophils % 0.2 Nucleated RBC % 0 Sodium 136 Potassium 4.8 Chloride 102 Carbon Dioxide 25 Anion Gap 9 BUN 13.5 Creatinine 1.0 Est GFR (CKD-EPI)AfAm 98.46 Est GFR (CKD-EPI)NonAf 84.95 POC Glucometer 236 Random Glucose 232 H Calcium 8.5 Phosphorus 2.4 L Magnesium 1.8 Total Bilirubin 0.5 AST 128 H ALT 156 H Alkaline Phosphatase 85 Total Protein 6.2 L Albumin 3.0 L Urine Color Urine Appearance Urine pH Ur Specific [place] Urine Protein Urine Glucose (UA) Urine Ketones Urine Blood Urine Nitrite Urine Bilirubin Urine Urobilinogen Ur Leukocyte Esterase Urine WBC (Auto) Urine RBC (Auto) Urine Casts (Auto) U Epithel Cells (Auto) Urine Bacteria (Auto) 01/10/20 11:24 WBC RBC Hgb Hct MCV MCH MCHC RDW Plt Count MPV Absolute Neuts (auto) Neutrophils % Lymphocytes % Monocytes % Eosinophils % Basophils % Nucleated RBC % Sodium Potassium Chloride Carbon Dioxide Anion Gap BUN Creatinine Est GFR (CKD-EPI)AfAm Est GFR (CKD-EPI)NonAf POC Glucometer 284 Random Glucose Calcium Phosphorus Magnesium Total Bilirubin AST ALT Alkaline Phosphatase Total Protein Albumin Urine Color Urine Appearance Urine pH Ur Specific [place] Urine Protein Urine Glucose (UA) Urine Ketones Urine Blood Urine Nitrite Urine Bilirubin Urine Urobilinogen Ur Leukocyte Esterase Urine WBC (Auto) Urine RBC (Auto) Urine Casts (Auto) U Epithel Cells (Auto) Urine Bacteria (Auto) Active Medications Generic Name Dose Route Start Last Admin Trade Name Freq PRN Reason Stop Dose Admin Acetaminophen 650 mg 01/08/20 00:59 01/09/20 18:57 Tylenol - PO 650 mg Q6H PRN Administration Fever Or Pain Aspirin 81 mg 01/08/20 10:00 01/10/20 09:46 Ecotrin - PO 81 mg DAILY [facility] Administration Atorvastatin Calcium 20 mg 01/08/20 22:00 01/09/20 21:21 Lipitor - PO 20 mg HS [facility] Administration Ceftriaxone Sodium 1 gm/ 50 mls @ 100 mls/hr 01/08/20 10:00 01/10/20 09:45 Dextrose IVPB 100 mls/hr DAILY [facility] Administration Protocol Sodium Chloride 1,000 mls @ 65 mls/hr 01/09/20 17:05 01/10/20 09:49 Normal Saline - IV 65 mls/hr ASDIR [facility] Administration Insulin Aspart 0 units 01/08/20 07:00 01/10/20 11:39 Novolog Vial SQ 6 unit ACHS [facility] Administration Protocol Insulin Detemir 8 units 01/10/20 22:00 Levemir Vial SQ HS [facility] Metoprolol Succinate 25 mg 01/08/20 00:55 01/10/20 09:46 Toprol Xl - PO 25 mg DAILY [facility] Administration Pantoprazole Sodium 40 mg 01/08/20 10:00 01/10/20 09:46 Protonix - PO 40 mg DAILY [facility] Administration Ranolazine 1,000 mg 01/08/20 10:00 01/10/20 09:46 Ranexa - PO 1,000 mg BID [facility] Administration Tamsulosin HCl 0.4 mg 01/08/20 08:30 01/10/20 09:46 Flomax - PO 0.4 mg DAILY@0830 [facility] Administration ASSESSMENT/PLAN: Harpal Beltran is a 54 year old male with a PMH diabetes mellitus, nephrolithiasis, presented with R flank pain and hematuria for 10 days, admitted for acute complicated urinary tract infection. #Sepsis 2/2 Pyelonephritis - 01/06: UA red, turbid with 3+ protein, 3+ blood, and 3+ LE, positive nitrites, 1989 bacteria - 01/08: UA yellow clear 1+ protein, 3+ glucose, 1+ ketones- Resolved UTI - CT abdomen, pelvis reveals no nephrolithiasis, or acute pathology. - Continue Ceftriaxone 1 gram IV D#4 - urine culture: E.coli - Continue Tamsulosin 0.4mg PO daily - Continue Gentle hydration with IV normal saline at 75mL/ hour - Urology consult (Dr. Roberto), recs: continue rocephin/flomax, f/u as outpt - Nephro consulted, rec: outpt stone workup - Pain control with Acetaminophen, Toradol #Transaminitis - unknown etiology, possibly 2/2 ceftriaxone( Cholestatic Hepatitis) - Continue to Trend LFTs, if not resolving, will consider changing Abxs #History of diabetes mellitus - 01/07 HgbA1c 7.8 - Holding home meds Glyburide, Metformin. - 01/09 Random BS 254, BGM 284 - ISS ACHS + Levemir 8 units HS, continue to monitor BGM #History of hypertension - Continue Metoprolol, Lisinopril, ASA #History of hyperlipidemia - Continue Simvastatin #FEN - IV normal saline at 65mL/ hour - Continue to monitor electrolytes - Diabetic diet DVT Prophylaxis -SCDs, holding chemical anticoagulation pending urology evaluation Disposition -Continue to monitor in [place], Monitor v/s, can d/c if T stable, no spiking fevers. Visit type - Emergency Visit Emergency Visit: Yes ED Registration Date: 01/07/20 Care time: The patient presented to the Emergency Department on the above date and was hospitalized for further evaluation of their emergent condition. - New Patient This patient is new to me today: Yes Date on this admission: 01/15/20 - Critical Care Critical Care patient: No - Discharge Referral Referred to [facility] Med P.C.: No ATTENDING PHYSICIAN STATEMENT I saw and evaluated the patient. I reviewed the resident's note and discussed the case with the resident. I agree with the resident's findings and plan as documented. SUBJECTIVE: OBJECTIVE: ASSESSMENT AND PLAN:
--- NOTE | 2020-01-10 19:29 | PN ---
Teaching Attending Note Name of Resident: Yoav Ardon ATTENDING PHYSICIAN STATEMENT I saw and evaluated the patient. I reviewed the resident's note and discussed the case with the resident. I agree with the resident's findings and plan as documented. SUBJECTIVE: Dysuria/R flank pain improved. Hematuria resolved. OBJECTIVE: Afebrile - fever resolved, Hemodynamcally stable. Last Vital Signs Temp Pulse Resp BP Pulse Ox 98 F 74 20 144/79 96 01/10/20 16:30 01/10/20 16:30 01/10/20 16:30 01/10/20 16:30 01/10/20 10:00 HEENT - Atraumatic Normocephalic. Heart - S1, S2, RRR Lungs - clear to auscultation Abdomen - soft, non-tender. Bowel Sounds normal. Extremities - no edema, no calf tenderness. Neuro - AAO x 3. Tone/Power normal. Laboratory Results - last 24 hr 01/09/20 01/09/20 01/10/20 19:15 21:23 05:34 WBC RBC Hgb Hct MCV MCH MCHC RDW Plt Count MPV Absolute Neuts (auto) Neutrophils % Lymphocytes % Monocytes % Eosinophils % Basophils % Nucleated RBC % Sodium Potassium Chloride Carbon Dioxide Anion Gap BUN Creatinine Est GFR (CKD-EPI)AfAm Est GFR (CKD-EPI)NonAf POC Glucometer 268 236 Random Glucose Calcium Phosphorus Magnesium Total Bilirubin AST ALT Alkaline Phosphatase Total Protein Albumin Urine Color Yellow Urine Appearance Clear Urine pH 6.0 Ur Specific [place] 1.025 Urine Protein 1+ H Urine Glucose (UA) 3+ H Urine Ketones 1+ H Urine Blood Negative Urine Nitrite Negative Urine Bilirubin Negative Urine Urobilinogen 1.0 Ur Leukocyte Esterase Negative Urine WBC (Auto) 70.1 Urine RBC (Auto) 5 Urine Casts (Auto) 0 U Epithel Cells (Auto) 9 Urine Bacteria (Auto) 15 01/10/20 01/10/20 01/10/20 07:10 07:10 11:24 WBC 6.6 RBC 4.34 Hgb 11.3 L Hct 33.9 L MCV 78.1 L MCH 26.0 MCHC 33.3 RDW 14.5 Plt Count 167 MPV 9.5 Absolute Neuts (auto) 4.5 Neutrophils % 69.1 Lymphocytes % 18.0 Monocytes % 11.5 H Eosinophils % 1.2 D Basophils % 0.2 Nucleated RBC % 0 Sodium 136 Potassium 4.8 Chloride 102 Carbon Dioxide 25 Anion Gap 9 BUN 13.5 Creatinine 1.0 Est GFR (CKD-EPI)AfAm 98.46 Est GFR (CKD-EPI)NonAf 84.95 POC Glucometer 284 Random Glucose 232 H Calcium 8.5 Phosphorus 2.4 L Magnesium 1.8 Total Bilirubin 0.5 AST 128 H ALT 156 H Alkaline Phosphatase 85 Total Protein 6.2 L Albumin 3.0 L Urine Color Urine Appearance Urine pH Ur Specific [place] Urine Protein Urine Glucose (UA) Urine Ketones Urine Blood Urine Nitrite Urine Bilirubin Urine Urobilinogen Ur Leukocyte Esterase Urine WBC (Auto) Urine RBC (Auto) Urine Casts (Auto) U Epithel Cells (Auto) Urine Bacteria (Auto) 01/10/20 16:22 WBC RBC Hgb Hct MCV MCH MCHC RDW Plt Count MPV Absolute Neuts (auto) Neutrophils % Lymphocytes % Monocytes % Eosinophils % Basophils % Nucleated RBC % Sodium Potassium Chloride Carbon Dioxide Anion Gap BUN Creatinine Est GFR (CKD-EPI)AfAm Est GFR (CKD-EPI)NonAf POC Glucometer 332 Random Glucose Calcium Phosphorus Magnesium Total Bilirubin AST ALT Alkaline Phosphatase Total Protein Albumin Urine Color Urine Appearance Urine pH Ur Specific [place] Urine Protein Urine Glucose (UA) Urine Ketones Urine Blood Urine Nitrite Urine Bilirubin Urine Urobilinogen Ur Leukocyte Esterase Urine WBC (Auto) Urine RBC (Auto) Urine Casts (Auto) U Epithel Cells (Auto) Urine Bacteria (Auto) Current Medications Generic Name Dose Route Start Last Admin Trade Name Freq PRN Reason Stop Dose Admin Acetaminophen 650 mg 01/08/20 00:59 01/09/20 18:57 Tylenol - PO 650 mg Q6H PRN Administration Fever Or Pain Aspirin 81 mg 01/08/20 10:00 01/10/20 09:46 Ecotrin - PO 81 mg DAILY [facility] Administration Atorvastatin Calcium 20 mg 01/08/20 22:00 01/09/20 21:21 Lipitor - PO 20 mg HS [facility] Administration Ceftriaxone Sodium 1 gm/ 50 mls @ 100 mls/hr 01/08/20 10:00 01/10/20 09:45 Dextrose IVPB 100 mls/hr DAILY [facility] Administration Protocol Sodium Chloride 1,000 mls @ 65 mls/hr 01/09/20 17:05 01/10/20 09:49 Normal Saline - IV 65 mls/hr ASDIR [facility] Administration Insulin Aspart 0 units 01/08/20 07:00 01/10/20 16:23 Novolog Vial SQ 6 unit ACHS [facility] Administration Protocol Insulin Detemir 8 units 01/10/20 22:00 Levemir Vial SQ [facility] Metoprolol Succinate 25 mg 01/08/20 00:55 01/10/20 09:46 Toprol Xl - PO 25 mg DAILY [facility] Administration Pantoprazole Sodium 40 mg 01/08/20 10:00 01/10/20 09:46 Protonix - PO 40 mg DAILY [facility] Administration Ranolazine 1,000 mg 01/08/20 10:00 01/10/20 09:46 Ranexa - PO 1,000 mg BID [facility] Administration Tamsulosin HCl 0.4 mg 01/08/20 08:30 01/10/20 09:46 Flomax - PO 0.4 mg DAILY@0830 [facility] Administration Home Medications Medication Instructions Recorded Aspirin Coated [Ecotrin -] 81 mg PO DAILY 01/07/20 Enalapril Maleate [Vasotec] 5 mg PO BID 01/07/20 Glyburide/Metformin HCl 2 each PO BID 01/07/20 [Glyburide-Metformin 5-500 mg] Metoprolol Succinate [Toprol Xl -] 25 mg PO DAILY 01/07/20 Omeprazole 40 mg PO DAILY 01/07/20 Ranolazine [Ranexa -] 1,000 mg PO BID 01/07/20 Simvastatin [Zocor -] 40 mg PO HS 01/07/20 ASSESSMENT AND PLAN: 54 year old male with a history of HTN, DM 2, Nephrolithiasis, presented with R flank pain and hematuria. 1. Sepsis secondary to Acute Pyelonephritis, Hx of Nephrolithiasis Fever resolved. Dysuria/hematuria resolved. Urine Cx - Ecoli CT A/P - Hepatomegaly/fatty infiltrate, no renal calculi/hydro Leukocytosis resolved. Continue Ceftriaxone, IV hydration. Eval by Urology - follow up as out-patient. 2. HTN - Continue Metoprolol and Enalapril 3. HLD - continue Simvastatin 4. DM 2 - Glyburide/Metformin held. Maintain on Levemir/Novolog sliding scale. 5. Elevated Transaminases ?sec to sepsis. Abdominal US requested. Hepatitis panel ordered. DVT Px - SCDs. Heparin held due to hematuria on presentation.
[2020-01-10] MEDS ORDERED: POLYETHYLENE GLYCOL 3350 119 GM BTL PO ONE (21:09)
[2020-01-10] MEDS ORDERED: INSULIN (LEVEMIR) 100 UNITS/ML UNITS SQ SCH (22:00)
[2020-01-10] MEDS: ATORVASTATIN CA 20 MG TABLET (FP) PO SCH (22:22)
[2020-01-11] MEDS: INSULIN (NOVOLOG) ASPART 100 UNITS/ML 10ML VIAL SQ SCH ×4 (06:41→17:11)
[2020-01-11] MEDS ORDERED: INSULIN (LEVEMIR) 100 UNITS/ML UNITS SQ ONE (07:51)
[2020-01-11 08:54] LABS: BASO % 0.4 % (0-2.0); EOS % 2.3 % (0-4.5); HEMATOCRIT 34.8 % (35.4-49); HEMOGLOBIN 11.8 GM/dL (11.7-16.9); MCHC 33.8 g/dl (32.0-35.9); MEAN CELL VOLUME 76.8 fl (80-96); MEAN PLT VOLUME 9.3 fl (7.5-11.1); MONO % 15.5 % (3.8-10.2); NEUT % 56.8 % (42.8-82.8); PLATELET COUNT 207 K/MM3 (134-434); RBC 4.54 M/mm3 (4.00-5.60); WHITE BLOOD COUNT 4.9 K/mm3 (4.0-10.0)
[2020-01-11 09:14] LABS: BILIRUBIN,TOTAL 0.4 mg/dL (0.2-1); BLOOD UREA NITROGEN 13.9 mg/dL (7-18); CALCIUM 8.7 mg/dL (8.5-10.1); MAGNESIUM 1.8 mg/dL (1.8-2.4); PHOSPHOROUS 3.3 mg/dL (2.5-4.9); POTASSIUM 4.5 mmol/L (3.5-5.1); TOT PROT 6.4 g/dl (6.4-8.2)
[2020-01-11] MEDS ORDERED: RANOLAZINE E.R. 500 MG TABLET (FP) ONE (09:57)
[2020-01-11] MEDS ORDERED: DEXTROSE 5%-WATER - 50 ML IVPB ONE (09:58)
[2020-01-11] MEDS ORDERED: cefTRIAXone SODIUM 1 GM VIAL ONE (09:58)
[2020-01-11] MEDS: ASPIRIN COATED 81 MG TABLET.EC PO SCH (10:25)
[2020-01-11] MEDS: PANTOPRAZOLE 40 MG TABLET PO SCH (10:25)
[2020-01-11] MEDS: TAMSULOSIN HCL 0.4 MG CAP PO SCH (10:25)
[2020-01-11] MEDS: metoPROLOL SUCCINATE 25 MG TAB.SR.24H (FP) PO SCH (10:25)
[2020-01-11] MEDS: RANOLAZINE E.R. 1,000 MG TABLET (FP) PO SCH (10:25)
[2020-01-11] MEDS: CEFTRIAXONE 1 GM in DEXTROSE 5%-WATER - 50 ML IVPB SCH (10:26)
--- NOTE | 2020-01-11 13:04 | PN ---
Progress Note, Physician History of Present Illness: Pt seen and examined. He feels well. He denies dysuria or hematuria. - Current Medication List Current Medications: Active Medications Acetaminophen (Tylenol -) 650 mg PO Q6H PRN PRN Reason: Fever Or Pain Last Admin: 01/09/20 18:57 Dose: 650 mg Documented by: Aspirin (Ecotrin -) 81 mg PO DAILY [facility] Last Admin: 01/11/20 10:25 Dose: 81 mg Documented by: Sodium Chloride (Normal Saline -) 1,000 mls @ 65 mls/hr IV ASDIR [facility] Last Admin: 01/10/20 22:31 Dose: 65 mls/hr Documented by: Insulin Aspart (Novolog Vial) 0 units SQ ACHS [facility]; Protocol Last Admin: 01/11/20 11:27 Dose: 8 unit Documented by: Insulin Detemir (Levemir Vial) 8 units SQ HS [facility] Last Admin: 01/10/20 22:19 Dose: 8 unit Documented by: Levofloxacin (Levaquin -) 750 mg PO DAILY [facility] Metoprolol Succinate (Toprol Xl -) 25 mg PO DAILY [facility] Last Admin: 01/11/20 10:25 Dose: 25 mg Documented by: Pantoprazole Sodium (Protonix -) 40 mg PO DAILY [facility] Last Admin: 01/11/20 10:25 Dose: 40 mg Documented by: Ranolazine (Ranexa -) 1,000 mg PO BID [facility] Last Admin: 01/11/20 10:25 Dose: 1,000 mg Documented by: Tamsulosin HCl (Flomax -) 0.4 mg PO DAILY@0830 [facility] Last Admin: 01/11/20 10:25 Dose: 0.4 mg Documented by: - Objective Vital Signs: Vital Signs Temperature 98.1 F 01/11/20 10:00 Pulse Rate 76 01/11/20 10:00 Respiratory Rate 18 01/11/20 10:00 Blood Pressure 156/85 01/11/20 10:00 O2 Sat by Pulse Oximetry (%) 96 01/11/20 10:00 Constitutional: Yes: Calm Eyes: Yes: Conjunctiva Clear HENT: Yes: Atraumatic Neck: Yes: Supple Cardiovascular: Yes: S1, S2 Respiratory: Yes: CTA Bilaterally Gastrointestinal: Yes: Normal Bowel Sounds, Soft Genitourinary: Yes: WNL Musculoskeletal: Yes: WNL Edema: No Neurological: Yes: Oriented Psychiatric: Yes: Oriented Labs: CBC, BMP 01/11/20 07:10 01/11/20 07:10 INR, PTT INR 1.12 (0.83-1.09) H 01/08/20 06:30 Problem List - Problems (1) Nephrolithiasis Code(s): N20.0 - CALCULUS OF KIDNEY Assessment/Plan Current Medications Generic Name Dose Route Start Last Admin Trade Name Freq PRN Reason Stop Dose Admin Acetaminophen 650 mg 01/08/20 00:59 01/09/20 18:57 Tylenol - PO 650 mg Q6H PRN Administration Fever Or Pain Aspirin 81 mg 01/08/20 10:00 01/11/20 10:25 Ecotrin - PO 81 mg DAILY [facility] Administration Sodium Chloride 1,000 mls @ 65 mls/hr 01/09/20 17:05 01/10/20 22:31 Normal Saline - IV 65 mls/hr ASDIR [facility] Administration Insulin Aspart 0 units 01/08/20 07:00 01/11/20 11:27 Novolog Vial SQ 8 unit ACHS [facility] Administration Protocol Insulin Detemir 8 units 01/10/20 22:00 01/10/20 22:19 Levemir Vial SQ 8 unit HS [facility] Administration Levofloxacin 750 mg 01/12/20 10:00 Levaquin - PO DAILY [facility] Metoprolol Succinate 25 mg 01/08/20 00:55 01/11/20 10:25 Toprol Xl - PO 25 mg DAILY [facility] Administration Pantoprazole Sodium 40 mg 01/08/20 10:00 01/11/20 10:25 Protonix - PO 40 mg DAILY [facility] Administration Ranolazine 1,000 mg 01/08/20 10:00 01/11/20 10:25 Ranexa - PO 1,000 mg BID [facility] Administration Tamsulosin HCl 0.4 mg 01/08/20 08:30 01/11/20 10:25 Flomax - PO 0.4 mg DAILY@0830 [facility] Administration Impression 1. UTI 2. nephrolithiasus 3. hematuria 4. dm 5. flank pain Plan - renal function stable - abx per primary team - outpt stone workup - no acute change in management - low sodium diet - ensure enough volume intake that he makes at 2 liters of urine
[2020-01-11 15:25] VITALS: BP 120/90; PULSE 79; TEMP 98.4
--- NOTE | 2020-01-11 15:33 | DS ---
Physical Exam: SUBJECTIVE: Patient seen and examined at bedside. No acute events overnight, Able to urinate, no hematuria. Denies any active fever, chills, abdominal pain, dysuria, flank pain. OBJECTIVE: Vital Signs Period Temp Pulse Resp BP Sys/Manzo Pulse Ox Last 24 Hr 98 F-98.6 F 74-79 18-20 120-156/79-92 95-97 PHYSICAL EXAM GENERAL: The patient is awake, alert, and fully oriented, in no acute distress. HEAD: Normocephalic, atraumatic. EYES: PERRL, extraocular movements intact, sclera anicteric, conjunctiva clear. ENT: Oropharynx clear, without erythema or exudates. Moist mucous membranes. NECK: Trachea midline, full range of motion. Supple without lymphadenopathy. LUNGS: Breath sounds equal, clear to auscultation bilaterally. No wheezes, no crackles. No accessory muscle use. HEART: Regular rate and rhythm. S1, S2 without murmur, rub or gallop. ABDOMEN: Soft, nondistended, TTP of suprapubic region. No rebound tenderness, no guarding. Normoactive bowel sounds x4 quadrants. Negative CVA tenderness bilaterally EXTREMITIES: 2+ radial, dorsalis pedis pulses bilaterally. Warm, well-perfused. No lower extremity edema bilaterally. NEUROLOGICAL: Cranial nerves II through XII grossly intact. Normal speech. No gross focal deficits. PSYCH: Normal mood, normal affect upon my encounter. SKIN: Warm, dry. LABS Laboratory Results - last 24 hr 01/10/20 01/10/20 01/10/20 08:01 16:22 22:18 WBC RBC Hgb Hct MCV MCH MCHC RDW Plt Count MPV Absolute Neuts (auto) Neutrophils % Lymphocytes % Monocytes % Eosinophils % Basophils % Nucleated RBC % Sodium Potassium Chloride Carbon Dioxide Anion Gap BUN Creatinine Est GFR (CKD-EPI)AfAm Est GFR (CKD-EPI)NonAf POC Glucometer 332 338 Random Glucose Hemoglobin A1c % 7.8 H Calcium Phosphorus Magnesium Total Bilirubin AST ALT Alkaline Phosphatase Total Protein Albumin 01/11/20 01/11/20 01/11/20 06:40 07:10 07:10 WBC 4.9 RBC 4.54 Hgb 11.8 Hct 34.8 L MCV 76.8 L MCH 26.0 MCHC 33.8 RDW 15.0 Plt Count 207 D MPV 9.3 Absolute Neuts (auto) 2.8 Neutrophils % 56.8 Lymphocytes % 25.0 D Monocytes % 15.5 H Eosinophils % 2.3 D Basophils % 0.4 Nucleated RBC % 0 Sodium 135 L Potassium 4.5 Chloride 99 Carbon Dioxide 25 Anion Gap 10 BUN 13.9 Creatinine 1.0 Est GFR (CKD-EPI)AfAm 98.46 Est GFR (CKD-EPI)NonAf 84.95 POC Glucometer 261 Random Glucose 273 H Hemoglobin A1c % Calcium 8.7 Phosphorus 3.3 Magnesium 1.8 Total Bilirubin 0.4 AST 110 H ALT 180 H Alkaline Phosphatase 104 Total Protein 6.4 Albumin 3.0 L 01/11/20 11:27 WBC RBC Hgb Hct MCV MCH MCHC RDW Plt Count MPV Absolute Neuts (auto) Neutrophils % Lymphocytes % Monocytes % Eosinophils % Basophils % Nucleated RBC % Sodium Potassium Chloride Carbon Dioxide Anion Gap BUN Creatinine Est GFR (CKD-EPI)AfAm Est GFR (CKD-EPI)NonAf POC Glucometer 310 Random Glucose Hemoglobin A1c % Calcium Phosphorus Magnesium Total Bilirubin AST ALT Alkaline Phosphatase Total Protein Albumin HOSPITAL COURSE: Date of Admission:01/07/20 Harpal Beltran is a 54 year old male with a H diabetes mellitus, nephrolithiasis, presented with R flank pain and hematuria for 10 days, admitted for acute complicated urinary tract infection. UA revealed red, turbid with 3+ protein, 3+ blood, and 3+ LE, positive nitrites, [address] abdomen, pelvis revealed no nephrolithiasis, or acute pathology. d/c with levaquin 750 mg once a day for 5 more days. Patient was advised to f/u urology as outpt and outpt stone workup with nephrology. Patient was advised tp continue home meds Glyburide and Metformin for diabetes management, to Continue Metoprolol, Lisinopril, ASA for HTN management, and to Continue Simvastatin for HLD management. metformin was increased to 1000mg twice a day prescribed vasotec 5mg once a day and tamsulosin .4 mg once a day. Patient is clinically stable and can be d/c home Date of Discharge: 01/11/20 Minutes to complete discharge: 36 Discharge Summary Problems reviewed: Yes Reason For Visit: PYELONEPHRITIS Current Active Problems Pyelonephritis (Acute) Condition: Good - Instructions Diet, Activity, Other Instructions: You came into the hospital with abdominal pain and blood in your urine. You had a CT of your abdomen which shows that your liver is enlarged. You were treated with fluids and antibiotics You had an ultrasound of your liver, showing that your liver is enlarged. You l iver enzymes were also elevated during the hospital stay. You must repeat your liver enzymes on Thursday. Your blood work shows that your diabetes number is elevated. (HbA1c 7.8) we are going to increase your metformin to 1000mg twice a day Please continue to take glyburide 5 mg twice a day Please take your vasotec 5mg once a day Please take tamsulosin .4 mg once a day Please take levaquin 750 mg once a day for 5 more days Please do NOT take your Simvastatin, unless otherwise stated by your Primary care physician Please continue your home medications as prescribed. Please follow up with your urologist, Dr. Roberto regarding your frequent kidney stones. Please follow up with your primary care provider Dr. Shaggy Bloom II regarding your general healthcare, appointment on Jan 17 @ 11.45 am If you have new, worsening, or concerning symptoms please return to the ED or call 911. Referrals: Shaggy Bloom II, DO [Primary Care Provider] - Remi Roberto MD [Staff Physician] - Disposition: HOME - Home Medications Comprehensive Discharge Medication List: Ambulatory Orders Aspirin Coated [Ecotrin -] 81 mg PO DAILY 01/07/20 Metoprolol Succinate [Toprol XL -] 25 mg PO DAILY 01/07/20 Omeprazole 40 mg PO DAILY 01/07/20 Ranolazine [Ranexa -] 1,000 mg PO BID 01/07/20 Enalapril Maleate [Vasotec] 5 mg PO DAILY #30 tab 01/11/20 Glyburide 5 mg PO BID #60 tablet 01/11/20 Metformin HCl [Glucophage] 1,000 mg PO BID #60 tablet 01/11/20 Tamsulosin HCl [Flomax -] 0.4 mg PO DAILY@0830 #30 tab 01/11/20 levoFLOXacin [Levaquin -] 750 mg PO DAILY #5 tablet 01/11/20 This patient is new to me today: Yes Date on this admission: 01/15/20 Emergency Visit: Yes ED Registration Date: 01/07/20 Care time: The patient presented to the Emergency Department on the above date and was hospitalized for further evaluation of their emergent condition. Critical Care patient: No - Discharge Referral Referred to [facility] Med [facility] No ATTENDING PHYSICIAN STATEMENT I saw and evaluated the patient. I reviewed the resident's note and discussed the case with the resident. I agree with the resident's findings and plan as documented. SUBJECTIVE: OBJECTIVE: ASSESSMENT AND PLAN:
[2020-01-11] MEDS ORDERED: INSULIN (NOVOLOG) ASPART 100 UNITS/ML 10ML VIAL SQ ONE (17:18)
--- NOTE | 2020-01-11 18:29 | PN ---
Teaching Attending Note Name of Resident: Yaov Ardon ATTENDING PHYSICIAN STATEMENT I saw and evaluated the patient. I reviewed the resident's note and discussed the case with the resident. I agree with the resident's findings and plan as documented. SUBJECTIVE: Feeling better - No dysuria/hematuria. OBJECTIVE: Afebrile, Hemodynamically stable. Last Vital Signs Temp Pulse Resp BP Pulse Ox 98.4 F 79 18 120/90 97 01/11/20 14:00 01/11/20 14:00 01/11/20 14:00 01/11/20 14:00 01/11/20 14:00 Heart - S1, S2, RRR Lungs - clear to auscultation Abdomen - soft, non-tender. Bowel Sounds normal. Extremities - no edema, no calf tenderness. Neuro - AAO x 3. Tone/Power normal. Laboratory Results - last 24 hr 01/10/20 01/10/20 01/11/20 08:01 22:18 06:40 WBC RBC Hgb Hct MCV MCH MCHC RDW Plt Count MPV Absolute Neuts (auto) Neutrophils % Lymphocytes % Monocytes % Eosinophils % Basophils % Nucleated RBC % Sodium Potassium Chloride Carbon Dioxide Anion Gap BUN Creatinine Est GFR (CKD-EPI)AfAm Est GFR (CKD-EPI)NonAf POC Glucometer 338 261 Random Glucose Hemoglobin A1c % 7.8 H Calcium Phosphorus Magnesium Iron TIBC Iron Saturation Unsaturated IBC Ferritin Total Bilirubin AST ALT Alkaline Phosphatase Total Protein Albumin 01/11/20 01/11/20 01/11/20 07:10 07:10 11:27 WBC 4.9 RBC 4.54 Hgb 11.8 Hct 34.8 L MCV 76.8 L MCH 26.0 MCHC 33.8 RDW 15.0 Plt Count 207 D MPV 9.3 Absolute Neuts (auto) 2.8 Neutrophils % 56.8 Lymphocytes % 25.0 D Monocytes % 15.5 H Eosinophils % 2.3 D Basophils % 0.4 Nucleated RBC % 0 Sodium 135 L Potassium 4.5 Chloride 99 Carbon Dioxide 25 Anion Gap 10 BUN 13.9 Creatinine 1.0 Est GFR (CKD-EPI)AfAm 98.46 Est GFR (CKD-EPI)NonAf 84.95 POC Glucometer 310 Random Glucose 273 H Hemoglobin A1c % Calcium 8.7 Phosphorus 3.3 Magnesium 1.8 Iron TIBC Iron Saturation Unsaturated IBC Ferritin Total Bilirubin 0.4 AST 110 H ALT 180 H Alkaline Phosphatase 104 Total Protein 6.4 Albumin 3.0 L 01/11/20 01/11/20 16:15 17:08 WBC RBC Hgb Hct MCV MCH MCHC RDW Plt Count MPV Absolute Neuts (auto) Neutrophils % Lymphocytes % Monocytes % Eosinophils % Basophils % Nucleated RBC % Sodium Potassium Chloride Carbon Dioxide Anion Gap BUN Creatinine Est GFR (CKD-EPI)AfAm Est GFR (CKD-EPI)NonAf POC Glucometer 412 Random Glucose Hemoglobin A1c % Calcium Phosphorus Magnesium Iron 50 TIBC 365 Iron Saturation 13 L Unsaturated IBC 315 H Ferritin 105.1 Total Bilirubin AST ALT Alkaline Phosphatase Total Protein Albumin Discharge Medications Medication Instructions Recorded Aspirin Coated [Ecotrin -] 81 mg PO DAILY 01/07/20 Metoprolol Succinate [Toprol XL -] 25 mg PO DAILY 01/07/20 Omeprazole 40 mg PO DAILY 01/07/20 Ranolazine [Ranexa -] 1,000 mg PO BID 01/07/20 Enalapril Maleate [Vasotec] 5 mg PO DAILY #30 tab 01/11/20 Glyburide 5 mg PO BID #60 tablet 01/11/20 Metformin HCl [Glucophage] 1,000 mg PO BID #60 tablet 01/11/20 Tamsulosin HCl [Flomax -] 0.4 mg PO DAILY@0830 #30 tab 01/11/20 levoFLOXacin [Levaquin -] 750 mg PO DAILY #5 tablet 01/11/20 ASSESSMENT AND PLAN: 54 year old male with a history of HTN, DM 2, Nephrolithiasis, presented with R flank pain and hematuria. 1. Sepsis secondary to Acute Pyelonephritis, Hx of Nephrolithiasis Fever resolved. Dysuria/hematuria resolved. Urine Cx - Ecoli CT A/P - Hepatomegaly/fatty infiltrate, no renal calculi/hydro Leukocytosis resolved. Treated with Ceftriaxone - for 5 additional days of oral Abx on discharge (Cephalosporin changed to Levofloxacin due to rising LFTs). Eval by Urology - continued on Tamsulosin, follow up as out-patient. 2. HTN - Continue Metoprolol and Enalapril 3. HLD - Statin held due to elevated LFTs. 4. DM 2 - uncontrolled A1c 7.8. Glyburide/Metformin to resume on discharge - PCP follow up for further up-titration of DM 2 meds. 5. Elevated Transaminases ?sec to sepsis. Abdominal US shows fatty liver, no acute findings. Hepatitis panel pending. Statin held. Arrangements made with PCP for repeat LFTs and Hepatitis panel results on Thursday at PCP office. Medically stable for discharge on lLevofloxacin with Urology and PCP follow up (for LFT elevation)
[2020-01-11] MEDS: SODIUM CHLORIDE 1,000 ML IV SCH (19:01)
== END 2020-01-11 17:59 | disposition home or self-care (01) | DRG 720 ==
LOC: JER 15:10 → JERBED 21:12 → J8W 23:36
PROVIDERS: ADMIT Internal Medicine
DX: A41.9 Sepsis, unspecified organism (principal); N10 Acute pyelonephritis; E11.65 Type 2 diabetes mellitus with hyperglycemia; R16.0 Hepatomegaly, not elsewhere classified; E78.5 Hyperlipidemia, unspecified; Z79.84 Long term (current) use of oral hypoglycemic drugs; R31.0 Gross hematuria; Z87.891 Personal history of nicotine dependence; N20.0 Calculus of kidney; R74.0 Nonspecific elevation of levels of transaminase and lactic acid dehydrogenase [LDH]; B96.20 Unspecified Escherichia coli [E. coli] as the cause of diseases classified elsewhere
CPT/HCPCS: 36415; 71046-TC-FY; 74176-TC; 76705-TC; 80048; 80053; 80074; 81003; 82728; 82962; 83036; 83540; 83550; 83735; 84100; 85025; 85027; 85610; 86850; 86900; 86901; 87086; 87186; 93005; 93010; 99285-25; J0131; U0003

== ENCOUNTER 2020-05-01 11:14 | Emergency (ER) | payer OTHER ==
[2020-05-01 11:33] VITALS: TEMP 98.1; BMI 28.3
[2020-05-01] MEDS ORDERED: ENALAPRIL MALEATE 5 MG TABLET PO ONE (12:33)
[2020-05-01] MEDS ORDERED: ENALAPRIL MALEATE 5 MG TABLET ONE (12:51)
[2020-05-01 13:01] LABS: BASO % 0.4 % (0-2.0); EOS % 1.8 % (0-4.5); HEMATOCRIT 42.6 % (35.4-49); HEMOGLOBIN 13.9 GM/dL (11.7-16.9); LYMPH % 43.6 % (8-40); MCH 25.4 pg (25.7-33.7); MCHC 32.6 g/dl (32.0-35.9); MEAN CELL VOLUME 77.9 fl (80-96); MEAN PLT VOLUME 9.3 fl (7.5-11.1); MONO % 10.2 % (3.8-10.2); PLATELET COUNT 195 K/MM3 (134-434); RBC 5.47 M/mm3 (4.00-5.60); RDW 15.2 % (11.9-15.9)
[2020-05-01 13:13] LABS: INR 0.92 (0.83-1.09); PROTHROMBIN TIME (PATIENT) 11.3 SEC (9.7-13.0)
[2020-05-01 13:16] LABS: ACTIVATED PTT 28.8 SECONDS (25.2-36.5)
[2020-05-01 13:26] LABS: POTASSIUM 4.1 mmol/L (3.5-5.1)
[2020-05-01 13:28] LABS: ALBUMIN 4.1 g/dl (3.4-5.0); CALCIUM 9.1 mg/dL (8.5-10.1)
[2020-05-01 13:29] LABS: BLOOD UREA NITROGEN 12.7 mg/dL (7-18)
[2020-05-01 13:32] LABS: CREATININE 0.9 mg/dL (0.55-1.3)
[2020-05-01 13:33] LABS: BILIRUBIN,TOTAL 0.2 mg/dL (0.2-1); TOT PROT 7.4 g/dl (6.4-8.2)
[2020-05-01 14:10] VITALS: BP 134/87; PULSE 80
== END 2020-05-01 14:11 | disposition home or self-care (01) ==
LOC: JER 11:14
DX: H53.411 Scotoma involving central area, right eye (principal)
CPT/HCPCS: 36415; 70450-TC; 80053; 82962; 85025; 85610; 85730; 86850; 86900; 86901; 93005; 93010; 99285-25

== ENCOUNTER 2021-01-19 13:36 | Emergency (ER) | payer OTHER ==
[2021-01-19 14:44] VITALS: BP 110/74; PULSE 96; TEMP 98.1; BMI 28.3
[2021-01-19 15:39] LABS: BASO % 0.3 % (0-2.0); EOS % 1.4 % (0-4.5); HEMATOCRIT 37.4 % (35.4-49); HEMOGLOBIN 13.3 GM/dL (11.7-16.9); LYMPH % 34.9 % (8-40); MCH 28.6 pg (25.7-33.7); MCHC 35.6 g/dl (32.0-35.9); MEAN CELL VOLUME 80.4 fl (80-96); MEAN PLT VOLUME 9.5 fl (7.5-11.1); MONO % 9.7 % (3.8-10.2); NEUT % 53.7 % (42.8-82.8); PLATELET COUNT 209 10^3/uL (134-434); RBC 4.65 M/mm3 (4.00-5.60); RDW 13.9 % (11.9-15.9); WHITE BLOOD COUNT 9.7 K/mm3 (4.0-10.0)
[2021-01-19 15:44] LABS: CALCIUM 9.2 mg/dL (8.5-10.1)
[2021-01-19 15:45] LABS: BLOOD UREA NITROGEN 20.9 mg/dL (7-18)
[2021-01-19 15:48] LABS: CREATININE 1.2 mg/dL (0.55-1.3)
== END 2021-01-19 17:32 | disposition home or self-care (01) ==
LOC: JERFT 13:36 → JER 13:36 → JERFT 17:32
DX: M79.605 Pain in left leg (principal)
CPT/HCPCS: 36415; 80048; 85025; 93971-TC; 99284-25

== ENCOUNTER 2021-06-10 04:17 | Day surgery (SDC) | payer OTHER ==
[2021-06-05 10:43] VITALS: BMI 28.3
[2021-06-10] MEDS ORDERED: GLYCOPYRROLATE 0.2 MG/1 ML VIAL ONE (10:43)
[2021-06-10] MEDS ORDERED: MIDAZOLAM HCL 2 MG/2 ML SINGLE DOSE VIAL ONE (10:43)
[2021-06-10] MEDS ORDERED: PROPOFOL 20 ML ONE (11:05)
[2021-06-10] MEDS ORDERED: ONDANSETRON 4 MG/2 ML VIAL ONE (11:40)
[2021-06-10] MEDS ORDERED: ONDANSETRON 4 MG/2 ML VIAL IVPB ONE (12:00)
[2021-06-10] MEDS ORDERED: PROMETHAZINE HCL 25 MG/1 ML VIAL IVPB ONE (12:50)
[2021-06-10] MEDS ORDERED: PROMETHAZINE HCL 25 MG/1 ML VIAL ONE (12:50)
[2021-06-10 17:13] VITALS: BP 110/72; PULSE 72; TEMP 98.7
== END 2021-06-10 15:30 | disposition home or self-care (01) ==
LOC: JASU-SURG 04:17
PROVIDERS: ATTEND Urology
PROC: 0TF4XZZ Fragmentation in Left Kidney Pelvis, External Approach (ICD-10-PCS; principal; 2021-06-10 10:00)
DX: N20.0 Calculus of kidney (principal)
CPT/HCPCS: 82962

== ENCOUNTER 2021-10-17 09:25 | Emergency (ER) | payer OTHER ==
[2021-10-17] MEDS ORDERED: SODIUM CHLORIDE 0.9% 500 ML INFUS.BAG IV ONE (10:50)
[2021-10-17 10:58] VITALS: BP 145/80; PULSE 94; TEMP 97.8; BMI 28.5
[2021-10-17 13:19] LABS: BASO % 0.4 % (0-2.0); EOS % 0.8 % (0-4.5); HEMATOCRIT 37.7 % (35.4-49); HEMOGLOBIN 12.8 GM/dL (11.7-16.9); LYMPH % 31.5 % (8-40); MCH 26.6 pg (25.7-33.7); MCHC 33.8 g/dl (32.0-35.9); MEAN CELL VOLUME 78.8 fl (80-96); MEAN PLT VOLUME 9.2 fl (7.5-11.1); MONO % 13.8 % (3.8-10.2); NEUT % 53.5 % (42.8-82.8); PH,URINE 5.5 (5.0-8.0); PLATELET COUNT 124 10^3/uL (134-434); RBC 4.79 M/mm3 (4.00-5.60); RDW 14.6 % (11.9-15.9); URINE APPEARANCE CLOUDY; URINE BILIRUBIN NEGATIVE (NEGATIVE); URINE COLOR YELLOW; URINE GLUCOSE (UA) 2+ (NEGATIVE); URINE KETONE NEGATIVE (NEGATIVE); URINE LEUK ESTERASE NEGATIVE (NEGATIVE); URINE NITRITE NEGATIVE (NEGATIVE); URINE PROTEIN NEGATIVE (NEGATIVE); URINE UROBILINOGEN 0.2 mg/dL (0.2-1.0); WHITE BLOOD COUNT 10.1 K/mm3 (4.0-10.0)
[2021-10-17 13:49] LABS: ALBUMIN 4.2 g/dl (3.4-5.0); CALCIUM 9.6 mg/dL (8.5-10.1)
[2021-10-17 13:50] LABS: BLOOD UREA NITROGEN 14.9 mg/dL (7-18)
[2021-10-17 13:52] LABS: CREATININE 1.1 mg/dL (0.55-1.3)
[2021-10-17 13:54] LABS: BILIRUBIN,TOTAL 0.5 mg/dL (0.2-1); TOT PROT 7.9 g/dl (6.4-8.2)
[2021-10-17] MEDS ORDERED: KETOROLAC TROMETHAMINE 30 MG/1 ML VIAL IVPUSH ONE (14:38)
[2021-10-17] MEDS ORDERED: KETOROLAC TROMETHAMINE 30 MG/1 ML VIAL ONE (14:40)
== END 2021-10-17 16:20 | disposition home or self-care (01) ==
LOC: JERFT 09:25
PROC: 3E0333Z Introduction of Anti-inflammatory into Peripheral Vein, Percutaneous Approach (ICD-10-PCS; principal; 2021-10-17)
DX: R10.10 Upper abdominal pain, unspecified (principal)
CPT/HCPCS: 36415; 71046-TC-FY; 74176-TC; 76705-TC; 80053; 81003; 83690; 85025; 87086; 99285-25

== ENCOUNTER → 2021-12-10 | Day surgery (SDC) | payer OTHER ==
[2021-12-10 10:20] LABS: BASO % 0.3 % (0-2.0); HEMATOCRIT 34.8 % (35.4-49); LYMPH % 50.7 % (8-40); MCH 26.7 pg (25.7-33.7); MCHC 34.5 g/dl (32.0-35.9); MEAN CELL VOLUME 77.3 fl (80-96); MEAN PLT VOLUME 8.6 fl (7.5-11.1); MONO % 10.4 % (3.8-10.2); NEUT % 36.6 % (42.8-82.8); PLATELET COUNT 147 10^3/uL (134-434); RDW 15.6 % (11.9-15.9); WHITE BLOOD COUNT 7.9 K/mm3 (4.0-10.0)
[2021-12-10 10:28] LABS: INR 1.02 (0.83-1.09); PROTHROMBIN TIME (PATIENT) 11.7 SEC (9.7-13.0)
== END | disposition home or self-care (01) ==
LOC: JRADIR 09:38
PROVIDERS: ATTEND Internal Medicine Hematology & Oncology
PROC: 07D53ZX Extraction of Right Axillary Lymphatic, Percutaneous Approach, Diagnostic (ICD-10-PCS; principal; 2021-12-10)
DX: C85.14 Unspecified B-cell lymphoma, lymph nodes of axilla and upper limb (principal)
CPT/HCPCS: 36415; 38505; 76942-TC; 85025; 85610; 87899; 88307-TC

== ENCOUNTER 2022-03-05 10:56 | Day surgery (SDC) | payer OTHER ==
[~2022-03-05 10:56] MED LIST: ACETAMINOPHEN 325 MG TABLET (FP) PO ONE; DIPHENHYDRAMINE 50 MG in SODIUM CHLORIDE 50 ML IVPB ONE; RITUXIMAB ABBS IVPB ONE; SODIUM CHLORIDE 250 ML IV ONE; SODIUM CHLORIDE IVPB ONE
[2022-03-05 11:35] LABS: HEMATOCRIT 39.2 % (35.4-49); HEMOGLOBIN 12.6 GM/dL (11.7-16.9); MCH 26.1 pg (25.7-33.7); MCHC 32.3 g/dl (32.0-35.9); MEAN CELL VOLUME 80.9 fl (80-96); MEAN PLT VOLUME 10.2 fl (7.5-11.1); PLATELET COUNT 184 10^3/uL (134-434); RBC 4.84 M/mm3 (4.00-5.60); RDW 15.6 % (11.9-15.9); WHITE BLOOD COUNT 17.5 K/mm3 (4.0-10.0)
[2022-03-05] MEDS ORDERED: DEXAMETHASONE SOD PHOSPHATE 10 MG/1 ML VIAL IVPB ONE (11:45)
[2022-03-05 11:56] LABS: BLOOD UREA NITROGEN 16.5 mg/dL (7-18); CALCIUM 9.4 mg/dL (8.5-10.1); MAGNESIUM 1.7 mg/dL (1.8-2.4)
[2022-03-05 11:59] LABS: BILIRUBIN,DIRECT 0.1 mg/dL (0.0-0.2); CREATININE 1.2 mg/dL (0.55-1.3); URIC ACID 5.4 mg/dL (2.6-7.2)
[2022-03-05 12:01] LABS: BILIRUBIN,TOTAL 0.4 mg/dL (0.2-1); TOT PROT 6.9 g/dl (6.4-8.2)
[2022-03-05 12:07] LABS: ANISOCYTOSIS 0; HELMET CELLS 0; HOWELL-JOLLY BODIES 0; MACROCYTOSIS 0; OVALOCYTE 0; ROULEAU 0; SICKELED CELLS 0; TARGET CELLS 0; TEAR DROP CELLS 0; TOXIC GRANULATION 0
[2022-03-05 18:30] VITALS: BP 136/74; PULSE 86
[2022-03-05 18:44] VITALS: RESP 20; TEMP 98.1
== END 2022-03-05 18:45 | disposition home or self-care (01) ==
LOC: JONCCHEMO 10:56
PROVIDERS: ATTEND Internal Medicine Hematology & Oncology
DX: Z51.11 Encounter for antineoplastic chemotherapy (principal); C91.10 Chronic lymphocytic leukemia of B-cell type not having achieved remission
CPT/HCPCS: 36415; 80048; 80076; 83615; 83735; 84550; 85025; 96367; 96413; 96415; J1100; Q5115

== ENCOUNTER 2022-03-12 08:16 | Day surgery (SDC) | payer OTHER ==
[2022-03-12 08:45] LABS: HEMATOCRIT 37.3 % (35.4-49); HEMOGLOBIN 12.5 GM/dL (11.7-16.9); MCH 26.9 pg (25.7-33.7); MCHC 33.6 g/dl (32.0-35.9); MEAN PLT VOLUME 9.8 fl (7.5-11.1); PLATELET COUNT 178 10^3/uL (134-434); RBC 4.67 M/mm3 (4.00-5.60); RDW 15.6 % (11.9-15.9); WHITE BLOOD COUNT 13.8 K/mm3 (4.0-10.0)
[2022-03-12] MEDS ORDERED: SODIUM CHLORIDE 250 ML IV ONE (09:00)
[2022-03-12 09:03] LABS: ALBUMIN 3.9 g/dl (3.4-5.0); CALCIUM 9.6 mg/dL (8.5-10.1); MAGNESIUM 1.9 mg/dL (1.8-2.4)
[2022-03-12 09:04] LABS: BLOOD UREA NITROGEN 21.6 mg/dL (7-18)
[2022-03-12 09:06] LABS: BILIRUBIN,DIRECT 0.1 mg/dL (0.0-0.2); CREATININE 1.4 mg/dL (0.55-1.3)
[2022-03-12 09:08] LABS: BILIRUBIN,TOTAL 0.4 mg/dL (0.2-1); TOT PROT 6.6 g/dl (6.4-8.2)
[2022-03-12 09:13] LABS: URIC ACID 6.2 mg/dL (2.6-7.2)
[2022-03-12] MEDS ORDERED: ACETAMINOPHEN 325 MG TABLET (FP) PO ONE (09:30)
[2022-03-12] MEDS ORDERED: DIPHENHYDRAMINE 50 MG in SODIUM CHLORIDE 50 ML IVPB ONE (09:30)
[2022-03-12] MEDS ORDERED: RITUXIMAB ABBS IVPB ONE (10:00)
[2022-03-12] MEDS ORDERED: SODIUM CHLORIDE IVPB ONE (10:00)
[2022-03-12 10:12] LABS: ANISOCYTOSIS 0; HELMET CELLS 0; HOWELL-JOLLY BODIES 0; MACROCYTOSIS 0; OVALOCYTE 0; ROULEAU 0; SICKELED CELLS 0; TARGET CELLS 0; TEAR DROP CELLS 0; TOXIC GRANULATION 0
[2022-03-12] MEDS ORDERED: DEXAMETHASONE SOD PHOSPHATE 4 MG/1 ML VIAL IVPB ONE (11:45)
[2022-03-12] MEDS ORDERED: INSULIN (NOVOLOG) ASPART 100 UNITS/ML 10ML VIAL SQ ONE (15:22)
[2022-03-12] MEDS ORDERED: DEXAMETHASONE SOD PHOSPHATE 10 MG/1 ML VIAL IVPB STA (16:26)
[2022-03-12] MEDS ORDERED: SODIUM CHLORIDE 0.9% 500 ML INFUS.BAG IV STA (16:27)
[2022-03-12] MEDS ORDERED: FAMOTIDINE 20 MG/50 ML IVPB 20 MG/50 ML MG IVPB ONE (17:12)
[2022-03-12 17:53] VITALS: RESP 18
[2022-03-12 18:10] VITALS: TEMP 97.9
[2022-03-12 18:47] VITALS: BP 122/72; PULSE 94
== END 2022-03-12 18:47 | disposition home or self-care (01) ==
LOC: JONCCHEMO 08:16
PROVIDERS: ATTEND Internal Medicine Hematology & Oncology
DX: Z51.11 Encounter for antineoplastic chemotherapy (principal); C91.10 Chronic lymphocytic leukemia of B-cell type not having achieved remission
CPT/HCPCS: 36415; 80048; 80076; 82962; 83615; 83735; 84550; 85025; 96361; 96367; 96413; 96415; J1100; Q5115

== ENCOUNTER 2022-03-19 09:12 | Day surgery (SDC) | payer OTHER ==
[~2022-03-19 09:12] MED LIST changes: -ACETAMINOPHEN 325 MG TABLET (FP) PO ONE; -DIPHENHYDRAMINE 50 MG in SODIUM CHLORIDE 50 ML IVPB ONE; -RITUXIMAB ABBS IVPB ONE; -SODIUM CHLORIDE IVPB ONE
[2022-03-19] MEDS ORDERED: DEXAMETHASONE SODIUM PHOSPHATE 10 MG, DIPHENHYDRAMINE 50 MG in SODIUM CHLORIDE 100 ML IVPB ONE (09:30)
[2022-03-19] MEDS ORDERED: ACETAMINOPHEN 325 MG TABLET (FP) PO ONE (09:30)
[2022-03-19] MEDS ORDERED: RITUXIMAB ABBS IVPB ONE (10:00)
[2022-03-19] MEDS ORDERED: SODIUM CHLORIDE IVPB ONE (10:00)
[2022-03-19 10:04] LABS: HEMATOCRIT 38.9 % (35.4-49); HEMOGLOBIN 12.9 GM/dL (11.7-16.9); MCH 26.7 pg (25.7-33.7); MCHC 33.2 g/dl (32.0-35.9); MEAN CELL VOLUME 80.5 fl (80-96); MEAN PLT VOLUME 10.1 fl (7.5-11.1); PLATELET COUNT 182 10^3/uL (134-434); RBC 4.83 M/mm3 (4.00-5.60); WHITE BLOOD COUNT 14.3 K/mm3 (4.0-10.0)
[2022-03-19 10:18] LABS: MAGNESIUM 1.9 mg/dL (1.8-2.4)
[2022-03-19 10:19] LABS: BLOOD UREA NITROGEN 20.3 mg/dL (7-18); CALCIUM 9.5 mg/dL (8.5-10.1)
[2022-03-19 10:20] LABS: ALBUMIN 3.9 g/dl (3.4-5.0)
[2022-03-19 10:21] LABS: URIC ACID 5.5 mg/dL (2.6-7.2)
[2022-03-19 10:22] LABS: BILIRUBIN,DIRECT 0.1 mg/dL (0.0-0.2); CREATININE 1.3 mg/dL (0.55-1.3)
[2022-03-19 10:23] LABS: TOT PROT 6.9 g/dl (6.4-8.2)
[2022-03-19 10:24] LABS: BILIRUBIN,TOTAL 0.3 mg/dL (0.2-1)
[2022-03-19 11:04] LABS: ANISOCYTOSIS 3+; MACROCYTOSIS 0
[2022-03-19] MEDS ORDERED: PORTA CATH FLUSH 10 ML IVPUSH PRN (17:37)
[2022-03-19 18:28] VITALS: RESP 20
[2022-03-19 18:35] VITALS: BP 118/72; PULSE 89; TEMP 98.3
== END 2022-03-19 19:00 | disposition home or self-care (01) ==
LOC: JONCCHEMO 09:12
PROVIDERS: ATTEND Internal Medicine Hematology & Oncology
DX: Z51.11 Encounter for antineoplastic chemotherapy (principal)
CPT/HCPCS: 36415; 80048; 80076; 82962; 83615; 83735; 84550; 85025; 96367; 96413; 96415; Q5115

== ENCOUNTER 2022-03-26 09:09 | Day surgery (SDC) | payer OTHER ==
[2022-03-26] MEDS ORDERED: SODIUM CHLORIDE 250 ML IV ONE (09:15)
[2022-03-26] MEDS ORDERED: DEXAMETHASONE SODIUM PHOSPHATE 10 MG, DIPHENHYDRAMINE 50 MG in SODIUM CHLORIDE 100 ML IVPB ONE (09:30)
[2022-03-26] MEDS ORDERED: ACETAMINOPHEN 325 MG TABLET (FP) PO ONE (09:30)
[2022-03-26] MEDS ORDERED: SODIUM CHLORIDE IVPB ONE (10:00)
[2022-03-26] MEDS ORDERED: RITUXIMAB ABBS IVPB ONE (10:00)
[2022-03-26 10:22] LABS: HEMATOCRIT 39.5 % (35.4-49); MCH 26.2 pg (25.7-33.7); MCHC 32.8 g/dl (32.0-35.9); MEAN CELL VOLUME 79.8 fl (80-96); MEAN PLT VOLUME 10.4 fl (7.5-11.1); PLATELET COUNT 179 10^3/uL (134-434); RBC 4.95 M/mm3 (4.00-5.60); RDW 15.2 % (11.9-15.9); WHITE BLOOD COUNT 10.9 K/mm3 (4.0-10.0)
[2022-03-26 10:29] LABS: CALCIUM 9.3 mg/dL (8.5-10.1)
[2022-03-26 10:30] LABS: ALBUMIN 3.9 g/dl (3.4-5.0); BLOOD UREA NITROGEN 21.9 mg/dL (7-18)
[2022-03-26 10:32] LABS: URIC ACID 4.9 mg/dL (2.6-7.2)
[2022-03-26 10:33] LABS: BILIRUBIN,DIRECT 0.1 mg/dL (0.0-0.2); CREATININE 1.3 mg/dL (0.55-1.3)
[2022-03-26 10:34] LABS: BILIRUBIN,TOTAL 0.5 mg/dL (0.2-1)
[2022-03-26 10:35] LABS: TOT PROT 7.2 g/dl (6.4-8.2)
[2022-03-26] MEDS ORDERED: INSULIN (NOVOLOG) ASPART 100 UNITS/ML 10ML VIAL SQ ONE ×2 (10:35→15:37)
[2022-03-26 11:05] LABS: ANISOCYTOSIS 0; HELMET CELLS 0; HOWELL-JOLLY BODIES 0; MACROCYTOSIS 0; OVALOCYTE 0; ROULEAU 0; SICKELED CELLS 0; TARGET CELLS 0; TEAR DROP CELLS 0; TOXIC GRANULATION 0
[2022-03-26 16:28] VITALS: RESP 18
[2022-03-26 16:46] VITALS: BP 122/70; PULSE 80
[2022-03-26 16:47] VITALS: TEMP 98.6
== END 2022-03-26 16:49 | disposition home or self-care (01) ==
LOC: JONCCHEMO 09:09
PROVIDERS: ATTEND Internal Medicine Hematology & Oncology
DX: Z51.11 Encounter for antineoplastic chemotherapy (principal); C91.10 Chronic lymphocytic leukemia of B-cell type not having achieved remission
CPT/HCPCS: 36415; 80048; 80076; 82962; 83615; 83735; 84550; 85025; 96367; 96413; 96415; Q5115

== ENCOUNTER 2022-04-23 09:06 | Day surgery (SDC) | payer OTHER ==
[2022-04-23 09:36] LABS: HEMATOCRIT 37.3 % (35.4-49); HEMOGLOBIN 11.9 GM/dL (11.7-16.9); MEAN CELL VOLUME 81.3 fl (80-96); MEAN PLT VOLUME 10.1 fl (7.5-11.1); PLATELET COUNT 188 10^3/uL (134-434); RBC 4.59 M/mm3 (4.00-5.60); RDW 15.5 % (11.9-15.9); WHITE BLOOD COUNT 7.1 K/mm3 (4.0-10.0)
[2022-04-23 09:51] LABS: CALCIUM 9.2 mg/dL (8.5-10.1)
[2022-04-23 09:52] LABS: ALBUMIN 3.7 g/dl (3.4-5.0); BLOOD UREA NITROGEN 15.8 mg/dL (7-18); MAGNESIUM 1.9 mg/dL (1.8-2.4)
[2022-04-23 09:54] LABS: BILIRUBIN,DIRECT 0.1 mg/dL (0.0-0.2); URIC ACID 3.3 mg/dL (2.6-7.2)
[2022-04-23 09:55] LABS: CREATININE 1.2 mg/dL (0.55-1.3); TOT PROT 6.6 g/dl (6.4-8.2)
[2022-04-23 09:57] LABS: BILIRUBIN,TOTAL 0.3 mg/dL (0.2-1)
[2022-04-23] MEDS ORDERED: SODIUM CHLORIDE 250 ML IV ONE (10:00)
[2022-04-23] MEDS ORDERED: DIPHENHYDRAMINE 50 MG in SODIUM CHLORIDE 50 ML IVPB ONE (10:00)
[2022-04-23] MEDS ORDERED: ACETAMINOPHEN 325 MG TABLET (FP) PO ONE (10:00)
[2022-04-23] MEDS ORDERED: SODIUM CHLORIDE IVPB ONE (10:30)
[2022-04-23] MEDS ORDERED: RITUXIMAB ABBS IVPB ONE (10:30)
[2022-04-23 11:02] LABS: ANISOCYTOSIS 0; HELMET CELLS 0; HOWELL-JOLLY BODIES 0; MACROCYTOSIS 0; OVALOCYTE 0; ROULEAU 0; SICKELED CELLS 0; TARGET CELLS 0; TEAR DROP CELLS 0; TOXIC GRANULATION 0
[2022-04-23] MEDS ORDERED: INSULIN (NOVOLOG) ASPART 100 UNITS/ML 10ML VIAL SQ ONE (11:46)
[2022-04-23] MEDS ORDERED: DEXAMETHASONE SOD PHOSPHATE 20 MG/5 ML VIAL IVPB ONE (13:00)
[2022-04-23] MEDS ORDERED: DEXAMETHASONE SOD PHOSPHATE 10 MG/1 ML VIAL ONE (13:00)
[2022-04-23] MEDS ORDERED: DEXAMETHASONE SOD PHOSPHATE 10 MG/1 ML VIAL IVPB ONE (13:15)
[2022-04-23 18:50] VITALS: RESP 20
[2022-04-23 19:10] VITALS: BP 124/75; PULSE 75; TEMP 98.1
== END 2022-04-23 19:01 | disposition home or self-care (01) ==
LOC: JONCCHEMO 09:06
PROVIDERS: ATTEND Internal Medicine Hematology & Oncology
DX: Z51.11 Encounter for antineoplastic chemotherapy (principal); C91.10 Chronic lymphocytic leukemia of B-cell type not having achieved remission
CPT/HCPCS: 36415; 80048; 80076; 82232; 82784; 82962; 83615; 83735; 84550; 85025; 86705; 87340; 96367; 96413; 96415; J1100; Q5115

== ENCOUNTER 2022-05-21 08:44 | Day surgery (SDC) | payer OTHER ==
[2022-05-21 09:14] LABS: HEMATOCRIT 35.9 % (35.4-49); HEMOGLOBIN 11.4 GM/dL (11.7-16.9); MCH 25.2 pg (25.7-33.7); MCHC 31.8 g/dl (32.0-35.9); MEAN CELL VOLUME 79.2 fl (80-96); MEAN PLT VOLUME 9.9 fl (7.5-11.1); PLATELET COUNT 211 10^3/uL (134-434); RBC 4.54 M/mm3 (4.00-5.60); RDW 15.3 % (11.9-15.9); WHITE BLOOD COUNT 8.4 K/mm3 (4.0-10.0)
[2022-05-21 09:27] LABS: CALCIUM 8.5 mg/dL (8.5-10.1)
[2022-05-21 09:28] LABS: ALBUMIN 3.1 g/dl (3.4-5.0); MAGNESIUM 1.8 mg/dL (1.8-2.4)
[2022-05-21 09:30] LABS: BILIRUBIN,DIRECT 0.1 mg/dL (0.0-0.2); CREATININE 1.2 mg/dL (0.55-1.3)
[2022-05-21] MEDS ORDERED: SODIUM CHLORIDE 250 ML IV ONE (09:30)
[2022-05-21 09:32] LABS: BILIRUBIN,TOTAL 0.5 mg/dL (0.2-1); TOT PROT 6.1 g/dl (6.4-8.2)
[2022-05-21] MEDS ORDERED: DEXAMETHASONE SODIUM PHOSPHATE 10 MG, DIPHENHYDRAMINE 50 MG in SODIUM CHLORIDE 100 ML IVPB ONE (10:00)
[2022-05-21] MEDS ORDERED: ACETAMINOPHEN 325 MG TABLET (FP) PO ONE (10:00)
[2022-05-21] MEDS ORDERED: SODIUM CHLORIDE IVPB ONE (10:30)
[2022-05-21] MEDS ORDERED: RITUXIMAB ABBS IVPB ONE (10:30)
[2022-05-21 10:38] LABS: ANISOCYTOSIS 0; HELMET CELLS 0; HOWELL-JOLLY BODIES 0; MACROCYTOSIS 0; OVALOCYTE 0; ROULEAU 0; SICKELED CELLS 0; TARGET CELLS 0; TEAR DROP CELLS 0; TOXIC GRANULATION 0
[2022-05-21] MEDS ORDERED: INSULIN (NOVOLOG) ASPART 100 UNITS/ML 10ML VIAL SQ ONE ×2 (10:49→16:41)
[2022-05-21 17:23] VITALS: BP 125/76; PULSE 88; RESP 18; TEMP 98
[2022-05-23 08:06] LABS: BETA-2-MICROGLOBULIN 2.5 mg/L (0.6-2.4)
== END 2022-05-21 17:34 | disposition home or self-care (01) ==
LOC: JONCCHEMO 08:44
PROVIDERS: ATTEND Internal Medicine Hematology & Oncology
DX: Z51.11 Encounter for antineoplastic chemotherapy (principal); C91.10 Chronic lymphocytic leukemia of B-cell type not having achieved remission
CPT/HCPCS: 36415; 80048; 80076; 82232; 82784; 82962; 83615; 83735; 84550; 85025; 87340; 87517; 96367; 96413; 96415; Q5115

== ENCOUNTER 2022-06-18 09:30 | Day surgery (SDC) | payer OTHER ==
[~2022-06-18 09:30] MED LIST changes: +ACETAMINOPHEN 325 MG TABLET (FP) PO ONE; +DEXAMETHASONE SODIUM PHOSPHATE 10 MG, DIPHENHYDRAMINE 50 MG in SODIUM CHLORIDE 100 ML IVPB ONE
[2022-06-18] MEDS ORDERED: RITUXIMAB ABBS IVPB ONE (10:00)
[2022-06-18] MEDS ORDERED: SODIUM CHLORIDE IVPB ONE (10:00)
[2022-06-18 10:12] LABS: HEMATOCRIT 35.9 % (35.4-49); HEMOGLOBIN 11.9 GM/dL (11.7-16.9); MCH 25.4 pg (25.7-33.7); MCHC 33.1 g/dl (32.0-35.9); MEAN CELL VOLUME 76.8 fl (80-96); MEAN PLT VOLUME 8.7 fl (7.5-11.1); PLATELET COUNT 354 10^3/uL (134-434); RBC 4.68 M/mm3 (4.00-5.60); RDW 15.3 % (11.9-15.9); WHITE BLOOD COUNT 8.7 K/mm3 (4.0-10.0)
[2022-06-18 10:34] LABS: ALBUMIN 3.8 g/dl (3.4-5.0); BLOOD UREA NITROGEN 13.9 mg/dL (7-18); CALCIUM 9.6 mg/dL (8.5-10.1); MAGNESIUM 1.9 mg/dL (1.8-2.4)
[2022-06-18 10:35] LABS: ANISOCYTOSIS 0; MACROCYTOSIS 0
[2022-06-18 10:36] LABS: BILIRUBIN,DIRECT 0.1 mg/dL (0.0-0.2)
[2022-06-18 10:37] LABS: CREATININE 1.1 mg/dL (0.55-1.3); URIC ACID 3.4 mg/dL (2.6-7.2)
[2022-06-18 10:38] LABS: BILIRUBIN,TOTAL 0.3 mg/dL (0.2-1); TOT PROT 7.5 g/dl (6.4-8.2)
[2022-06-18 17:25] VITALS: RESP 20; TEMP 98.2
[2022-06-18 17:38] VITALS: BP 133/71; PULSE 78
[2022-06-20 14:07] LABS: BETA-2-MICROGLOBULIN 2.7 mg/L (0.6-2.4)
== END 2022-06-18 17:41 | disposition home or self-care (01) ==
LOC: JONCCHEMO 09:30
PROVIDERS: ATTEND Internal Medicine Hematology & Oncology
DX: Z51.11 Encounter for antineoplastic chemotherapy (principal); C91.10 Chronic lymphocytic leukemia of B-cell type not having achieved remission
CPT/HCPCS: 36415; 80048; 80076; 82232; 82784; 82962; 83615; 83735; 84550; 85025; 96367; 96413; 96415; Q5115

== ENCOUNTER 2022-07-16 09:26 | Day surgery (SDC) | payer OTHER ==
[2022-07-16] MEDS ORDERED: DEXAMETHASONE SODIUM PHOSPHATE 10 MG, DIPHENHYDRAMINE 50 MG in SODIUM CHLORIDE 100 ML IVPB ONE (10:00)
[2022-07-16] MEDS ORDERED: ACETAMINOPHEN 325 MG TABLET (FP) PO ONE (10:00)
[2022-07-16] MEDS ORDERED: SODIUM CHLORIDE 250 ML IV ONE (10:00)
[2022-07-16 10:22] LABS: HEMATOCRIT 38.7 % (35.4-49); HEMOGLOBIN 12.6 GM/dL (11.7-16.9); MCH 24.7 pg (25.7-33.7); MCHC 32.6 g/dl (32.0-35.9); MEAN CELL VOLUME 75.7 fl (80-96); MEAN PLT VOLUME 10.6 fl (7.5-11.1); PLATELET COUNT 222 10^3/uL (134-434); RBC 5.12 M/mm3 (4.00-5.60); RDW 15.5 % (11.9-15.9); WHITE BLOOD COUNT 6.8 K/mm3 (4.0-10.0)
[2022-07-16] MEDS ORDERED: SODIUM CHLORIDE IVPB ONE (10:30)
[2022-07-16] MEDS ORDERED: RITUXIMAB ABBS IVPB ONE (10:30)
[2022-07-16 10:45] LABS: CALCIUM 9.3 mg/dL (8.5-10.1)
[2022-07-16 10:46] LABS: BLOOD UREA NITROGEN 16.3 mg/dL (7-18)
[2022-07-16 10:48] LABS: BILIRUBIN,DIRECT 0.1 mg/dL (0.0-0.2)
[2022-07-16 10:49] LABS: CREATININE 1.1 mg/dL (0.55-1.3); URIC ACID 5.5 mg/dL (2.6-7.2)
[2022-07-16 10:50] LABS: TOT PROT 7.3 g/dl (6.4-8.2)
[2022-07-16 10:51] LABS: BILIRUBIN,TOTAL 0.4 mg/dL (0.2-1)
[2022-07-16 11:27] LABS: ANISOCYTOSIS 0; HELMET CELLS 0; HOWELL-JOLLY BODIES 0; MACROCYTOSIS 0; OVALOCYTE 0; ROULEAU 0; SICKELED CELLS 0; TARGET CELLS 0; TEAR DROP CELLS 0; TOXIC GRANULATION 0
[2022-07-16] MEDS ORDERED: INSULIN (NOVOLOG) ASPART 100 UNITS/ML 10ML VIAL SQ ONE (11:37)
[2022-07-16] MEDS ORDERED: INSULIN (NOVOLOG) ASPART 100 UNITS/ML 10ML VIAL ONE (11:52)
[2022-07-16 17:17] VITALS: RESP 18; TEMP 97.8
[2022-07-16 18:04] VITALS: BP 138/80; PULSE 81
[2022-07-18 07:07] LABS: BETA-2-MICROGLOBULIN 2.2 mg/L (0.6-2.4)
== END 2022-07-16 18:15 | disposition home or self-care (01) ==
LOC: JONCCHEMO 09:26
PROVIDERS: ATTEND Internal Medicine Hematology & Oncology
DX: Z51.11 Encounter for antineoplastic chemotherapy (principal); C91.10 Chronic lymphocytic leukemia of B-cell type not having achieved remission
CPT/HCPCS: 36415; 80048; 80076; 82232; 82784; 83615; 84550; 85025; 96367; 96413; 96415; Q5115

== ENCOUNTER 2023-04-03 10:42 | Day surgery (SDC) | payer OTHER ==
[~2023-04-03 10:42] MED LIST changes: -ACETAMINOPHEN 325 MG TABLET (FP) PO ONE; -DEXAMETHASONE SODIUM PHOSPHATE 10 MG, DIPHENHYDRAMINE 50 MG in SODIUM CHLORIDE 100 ML IVPB ONE; +IRON SUCROSE INJECTION 300 MG in SODIUM CHLORIDE 250 ML IVPB ONE; -SODIUM CHLORIDE 250 ML IV ONE
[2023-04-03 12:50] VITALS: RESP 18; TEMP 98.3
[2023-04-03 13:12] VITALS: BP 120/73; PULSE 69
== END 2023-04-03 13:36 | disposition home or self-care (01) ==
LOC: JONCNONCHE 10:42 → J7W 10:44 → JONCNONCHE 13:36
PROVIDERS: ATTEND Internal Medicine Hematology & Oncology
PROC: 3E033GC Introduction of Other Therapeutic Substance into Peripheral Vein, Percutaneous Approach (ICD-10-PCS; principal; 2023-04-03)
DX: E61.1 Iron deficiency (principal); C91.10 Chronic lymphocytic leukemia of B-cell type not having achieved remission
CPT/HCPCS: 96365; J1756

== ENCOUNTER 2023-04-10 08:30 | Day surgery (SDC) | payer OTHER ==
[2023-04-10] MEDS ORDERED: IRON SUCROSE INJECTION 300 MG in SODIUM CHLORIDE 235 ML IVPB ONE (10:00)
[2023-04-10 14:39] VITALS: BP 133/80; PULSE 81; RESP 20; TEMP 97.8
== END 2023-04-10 10:55 | disposition home or self-care (01) ==
LOC: JONCNONCHE 08:30 → J7W 08:31 → JONCNONCHE 10:55
PROVIDERS: ATTEND Internal Medicine Hematology & Oncology
PROC: 3E033GC Introduction of Other Therapeutic Substance into Peripheral Vein, Percutaneous Approach (ICD-10-PCS; principal; 2023-04-10)
DX: C91.10 Chronic lymphocytic leukemia of B-cell type not having achieved remission (principal)
CPT/HCPCS: 96365; J1756

== ENCOUNTER 2023-04-17 09:12 | Day surgery (SDC) | payer OTHER ==
[2023-04-17 15:34] VITALS: BP 142/83; PULSE 75; RESP 20; TEMP 97.8
== END 2023-04-17 10:30 | disposition home or self-care (01) ==
LOC: JONCNONCHE 09:12 → J7W 09:14 → JONCNONCHE 10:30
PROVIDERS: ATTEND Internal Medicine Hematology & Oncology
PROC: 3E033GC Introduction of Other Therapeutic Substance into Peripheral Vein, Percutaneous Approach (ICD-10-PCS; principal; 2023-04-17)
DX: C91.10 Chronic lymphocytic leukemia of B-cell type not having achieved remission (principal)
CPT/HCPCS: 96365; J1756

== ENCOUNTER 2023-04-24 10:04 | Day surgery (SDC) | payer OTHER ==
[2023-04-24 14:56] VITALS: TEMP 97.9
[2023-04-24 15:05] VITALS: BP 143/80; PULSE 18; RESP 80
== END 2023-04-24 12:25 | disposition home or self-care (01) ==
LOC: JONCNONCHE 10:04 → J7W 10:06 → JONCNONCHE 12:25
PROVIDERS: ATTEND Internal Medicine Hematology & Oncology
PROC: 3E033GC Introduction of Other Therapeutic Substance into Peripheral Vein, Percutaneous Approach (ICD-10-PCS; principal; 2023-04-24)
DX: C91.10 Chronic lymphocytic leukemia of B-cell type not having achieved remission (principal)
CPT/HCPCS: 96365; J1756

== ENCOUNTER 2024-09-21 14:31 | Emergency (ER) | payer OTHER ==
[2024-09-21 14:43] VITALS: BP 136/76; PULSE 80; RESP 18; TEMP 97.9; BMI 29.1
[2024-09-21 16:41] LABS: ABSOLUTE IMMATURE GRANULOCYTES 0.02 x10^3/uL (0.0-0.031); BASOPHILS # 0.03 x10^3/uL (0.01-0.08); EOSINOPHIL % 2.1 % (0.8-7.0); EOSINOPHILS # 0.13 x10^3/uL (0.04-0.54); HEMATOCRIT 41.7 % (40.1-51.0); HEMOGLOBIN 13.3 g/dL (13.7-17.5); MCHC 31.9 g/dl (32.3-36.5); MEAN CELL VOLUME 86.2 fl (79.0-92.2); MEAN PLT VOLUME 12.1 fl (9.4-12.4); MONOCYTE # 0.79 x10^3/uL (0.30-0.82); MONOCYTE % 12.6 % (5.3-12.2); PLATELET COUNT 166 x10^3/uL (163-337); RDW 14.8 % (12.2-16.1)
[2024-09-21 17:02] LABS: POTASSIUM 4.3 mmol/L (3.5-5.1)
[2024-09-21 17:04] LABS: ALBUMIN 3.8 g/dl (3.4-5.0); BLOOD UREA NITROGEN 22.7 mg/dL (7-18); CALCIUM 9.7 mg/dL (8.5-10.1); MAGNESIUM 2.2 mg/dL (1.8-2.4)
[2024-09-21 17:07] LABS: CREATININE 1.3 mg/dL (0.55-1.3)
[2024-09-21 17:09] LABS: BILIRUBIN,TOTAL 0.4 mg/dL (0.2-1); TOT PROT 6.9 g/dl (6.4-8.2)
[2024-09-21 17:49] LABS: URINE APPEARANCE CLEAR; URINE BILIRUBIN NEGATIVE (NEGATIVE); URINE COLOR YELLOW; URINE GLUCOSE (UA) 3+ (NEGATIVE); URINE KETONE NEGATIVE (NEGATIVE); URINE LEUK ESTERASE NEGATIVE (NEGATIVE); URINE NITRITE NEGATIVE (NEGATIVE); URINE PROTEIN NEGATIVE (NEGATIVE); URINE UROBILINOGEN 0.2 mg/dL (0.2-1.0)
[2024-09-21 17:53] LABS: HIV INTERPRETATION NEGATIVE (NEGATIVE)
[2024-09-21 17:54] LABS: HCV DIAGNOSTIC IN-HOUSE W/RFLX NON-REACTIVE (NONREACTIVE)
[2024-09-21] MEDS ORDERED: ACETAMINOPHEN INJECTION 100 ML ONE (19:53)
[2024-09-21] MEDS: ACETAMINOPHEN 1000 MG/100 ML BAG IVPB ONE (20:01)
== END 2024-09-21 20:29 | disposition home or self-care (01) ==
LOC: JER 14:31
PROC: 3E033NZ Introduction of Analgesics, Hypnotics, Sedatives into Peripheral Vein, Percutaneous Approach (ICD-10-PCS; principal; 2024-09-21)
DX: K62.5 Hemorrhage of anus and rectum (principal)
CPT/HCPCS: 36415; 74177-TC; 80053; 81003; 82272; 83735; 85025; 86803; 87389; 99285-25; J0131; Q9967